=== PATIENT | male | born 1970 | race Caucasian/White ===

== ENCOUNTER → 2017-11-02 | Outpatient (REF) | payer BC ==
[2017-11-02 12:26] LABS: BASO % 0.6 % (0.0-1.0); EOS # 0.3 10^3/uL (0.0-0.50); EOS % 3.8 % (0.0-3.0); HEMATOCRIT 45.8 % (42.0-52.0); HEMOGLOBIN 15.2 g/dl (13.5-17.5); IMMATURE GRANULOCYTE % 0.3 % (0-3.0); LYMPH # 2.1 10^3/uL (1.5-4.5); LYMPH % 32.4 % (24.0-44.0); MEAN CORPUSCULAR HEMOGLOBIN 31.3 pg (27.0-33.0); MEAN CORPUSCULAR HGB CONC 33.2 g/dl (32.0-36.5); MEAN CORPUSCULAR VOLUME 94.4 fl (80.0-96.0); MONO # 0.8 10^3/uL (0.0-0.8); MONO % 11.5 % (0.0-5.0); NEUTROPHILS # 3.4 10^3/uL (1.8-7.7); NEUTROPHILS % 51.4 % (36.0-66.0); PLATELET COUNT, AUTOMATED 201 10^3/uL (150-450); RED BLOOD COUNT 4.85 10^6/uL (4.30-6.10); RED CELL DISTRIBUTION WIDTH 12.4 % (11.5-14.5); WHITE BLOOD COUNT 6.5 10^3/uL (4.0-10.0)
[2017-11-02 22:11] LABS: ALBUMIN 3.7 GM/DL (3.2-5.2); ALKALINE PHOSPHATASE 93 U/L (45-117); ALT/SGPT 145 U/L (12-78); ANION GAP 8 MEQ/L (8-16); AST/SGOT 118 U/L (7-37); BILIRUBIN,TOTAL 0.5 MG/DL (0.2-1.0); BLOOD UREA NITROGEN 9 MG/DL (7-18); CALCIUM LEVEL 8.9 MG/DL (8.5-10.1); CARBON DIOXIDE LEVEL 28 MEQ/L (21-32); CHLORIDE LEVEL 103 MEQ/L (98-107); CREATININE FOR GFR 0.81 MG/DL (0.70-1.30); GLOMERULAR FILTRATION RATE > 60.0 (>60); GLUCOSE, FASTING 100 MG/DL (70-100); POTASSIUM SERUM 4.3 MEQ/L (3.5-5.1); SODIUM LEVEL 139 MEQ/L (136-145); TOTAL PROTEIN 7.3 GM/DL (6.4-8.2); TRIGLYCERIDES LEVEL 121 MG/DL (<150)
[2017-11-02 23:16] LABS: ALBUMIN/GLOBULIN RATIO 1.03 (1.00-1.93); CHOLESTEROL LEVEL 240 MG/DL (<200); CHOLESTEROL RISK RATIO 4.444 (<5); HDL CHOLESTEROL 54 MG/DL (>40); LDL CHOLESTEROL 161.8 MG/DL (<100); NON-HDL-C 186 MG/DL
== END ==
LOC: M SFHCADAM 08:10
DX: E78.2 Mixed hyperlipidemia (principal)
CPT/HCPCS: 84443

== ENCOUNTER → 2017-11-11 | Outpatient (CLI) | payer BC | LOC: M RAD 06:15 | DX: K76.0 Fatty (change of) liver, not elsewhere classified (principal); R94.5 Abnormal results of liver function studies; E78.2 Mixed hyperlipidemia | CPT/HCPCS: 76705 ==

== ENCOUNTER → 2018-07-06 | Outpatient (REF) | payer BC ==
[2018-07-06 13:15] LABS: HEMOGLOBIN A1c 6.1 %
[2018-07-06 13:21] LABS: ALBUMIN 4.1 GM/DL (3.2-5.2); ALT/SGPT 87 U/L (12-78); BILIRUBIN,TOTAL 0.5 MG/DL (0.2-1.0); BLOOD UREA NITROGEN 12 MG/DL (7-18); CARBON DIOXIDE LEVEL 29 MEQ/L (21-32); CHLORIDE LEVEL 105 MEQ/L (98-107); CHOLESTEROL LEVEL 186 MG/DL (<200); CHOLESTEROL RISK RATIO 2.657 (<5); CREATININE FOR GFR 0.85 MG/DL (0.70-1.30); GLOMERULAR FILTRATION RATE > 60.0 (>60); GLUCOSE, FASTING 95 MG/DL (70-100); HDL CHOLESTEROL 70 MG/DL (>40); LDL CHOLESTEROL 74 MG/DL (<100); NON-HDL-C 116 MG/DL; POTASSIUM SERUM 4.7 MEQ/L (3.5-5.1); SODIUM LEVEL 141 MEQ/L (136-145); TOTAL PROTEIN 7.9 GM/DL (6.4-8.2); TRIGLYCERIDES LEVEL 208 MG/DL (<150)
[2018-07-06 13:35] LABS: MALB URINE SIEMENS 5.2 MG/L; MAU/CREAT RATIO 3.8 MCG/MG (0.0-30.0)
== END ==
LOC: M SFHCADAM 07:59
PROVIDERS: ATTEND Physician Assistant Medical
DX: E78.2 Mixed hyperlipidemia (principal); E66.01 Morbid (severe) obesity due to excess calories; R73.01 Impaired fasting glucose; F10.10 Alcohol abuse, uncomplicated; K21.9 Gastro-esophageal reflux disease without esophagitis; K76.0 Fatty (change of) liver, not elsewhere classified

== ENCOUNTER → 2019-01-10 | Outpatient (REF) | payer BC ==
[2019-01-10 12:40] LABS: HEMATOCRIT 46.1 % (42.0-52.0); HEMOGLOBIN 14.9 g/dl (13.5-17.5); MEAN CORPUSCULAR HEMOGLOBIN 30.9 pg (27.0-33.0); MEAN CORPUSCULAR HGB CONC 32.3 g/dl (32.0-36.5); MEAN CORPUSCULAR VOLUME 95.6 fl (80.0-96.0); PLATELET COUNT, AUTOMATED 264 10^3/uL (150-450); RED BLOOD COUNT 4.82 10^6/uL (4.30-6.10); WHITE BLOOD COUNT 8.3 10^3/uL (4.0-10.0)
[2019-01-10 12:53] LABS: ALBUMIN 3.8 GM/DL (3.2-5.2); ALT/SGPT 73 U/L (12-78); BILIRUBIN,TOTAL 0.5 MG/DL (0.2-1.0); BLOOD UREA NITROGEN 11 MG/DL (7-18); CALCIUM LEVEL 9.4 MG/DL (8.5-10.1); CARBON DIOXIDE LEVEL 29 MEQ/L (21-32); CHLORIDE LEVEL 105 MEQ/L (98-107); CHOLESTEROL LEVEL 181 MG/DL (<200); CHOLESTEROL RISK RATIO 2.207 (<5); CREATININE FOR GFR 0.79 MG/DL (0.70-1.30); GLOMERULAR FILTRATION RATE > 60.0 (>60); GLUCOSE, FASTING 104 MG/DL (70-100); HDL CHOLESTEROL 82 MG/DL (>40); LDL CHOLESTEROL 80 MG/DL (<100); NON-HDL-C 99 MG/DL; POTASSIUM SERUM 4.6 MEQ/L (3.5-5.1); SODIUM LEVEL 141 MEQ/L (136-145); THYROID STIMULATING HORMONE 0.706 uIU/ML (0.358-3.740); TOTAL PROTEIN 7.6 GM/DL (6.4-8.2); TRIGLYCERIDES LEVEL 96 MG/DL (<150)
[2019-01-10 13:28] LABS: HEMOGLOBIN A1c 6.2 %
== END ==
LOC: M SFHCADAM 09:03
PROVIDERS: ATTEND Physician Assistant Medical
DX: E78.2 Mixed hyperlipidemia (principal); E66.01 Morbid (severe) obesity due to excess calories; R73.01 Impaired fasting glucose

== ENCOUNTER → 2019-01-13 | Outpatient (CLI) | payer BC ==
--- NOTE | 2019-01-13 15:11 | REP ---
Five views lumbar spine: 01/13/2019. Indication: Low back pain. Comparison: 06/09/2005. Findings: There is no acute fracture, subluxation or dislocation. Disc space narrowing and spondylitic changes are present throughout most pronounced at the L3/L4 and L5/S1. There is minimal lumbar levoscoliosis centered at L3. There is no significant soft tissue abnormality detected. No lytic or blastic lesions are present. Impression: No acute osseous injury of the lumbar spine. Electronically Signed by Ezequiel Harvey DO 01/13/2019 03:02 P
== END ==
LOC: M ADAMS 14:38
PROVIDERS: ATTEND Physician Assistant Medical
DX: M54.5 Low back pain (principal)

== ENCOUNTER → 2019-07-08 | Outpatient (REF) | payer BC ==
[2019-07-08 13:23] LABS: ALBUMIN 3.5 GM/DL (3.2-5.2); ALT/SGPT 87 U/L (12-78); BILIRUBIN,TOTAL 0.7 MG/DL (0.2-1.0); BLOOD UREA NITROGEN 11 MG/DL (7-18); CALCIUM LEVEL 8.5 MG/DL (8.5-10.1); CARBON DIOXIDE LEVEL 30 MEQ/L (21-32); CHLORIDE LEVEL 104 MEQ/L (98-107); CHOLESTEROL LEVEL 247 MG/DL (<200); CHOLESTEROL RISK RATIO 4.049 (<5); FREE T4 1.02 NG/DL (0.76-1.46); GLOMERULAR FILTRATION RATE > 60.0 (>60); GLUCOSE, FASTING 89 MG/DL (70-100); HDL CHOLESTEROL 61 MG/DL (>40); NON-HDL-C 186 MG/DL; POTASSIUM SERUM 4.5 MEQ/L (3.5-5.1); SODIUM LEVEL 140 MEQ/L (136-145); THYROID STIMULATING HORMONE 0.859 uIU/ML (0.358-3.740); TOTAL PROTEIN 7.2 GM/DL (6.4-8.2); TRIGLYCERIDES LEVEL 461 MG/DL (<150)
[2019-07-08 13:44] LABS: CREATININE, URINE 88.6 MG/DL; MALB URINE SIEMENS 5.1 MG/L; MAU/CREAT RATIO 5.7 MCG/MG (0.0-30.0)
[2019-07-08 13:57] LABS: HEMOGLOBIN A1c 6.1 %
== END ==
LOC: M SFHCADAM 09:08
PROVIDERS: ATTEND Physician Assistant Medical
DX: E78.2 Mixed hyperlipidemia (principal); E66.01 Morbid (severe) obesity due to excess calories; R73.03 Prediabetes

== ENCOUNTER → 2019-07-26 | Outpatient (REF) | payer BC ==
[2019-07-26 14:37] LABS: ALBUMIN 3.7 GM/DL (3.2-5.2); BILIRUBIN,DIRECT 0.4 MG/DL (0.0-0.2); BILIRUBIN,TOTAL 0.9 MG/DL (0.2-1.0); TOTAL PROTEIN 7.3 GM/DL (6.4-8.2)
== END ==
LOC: M SFHCADAM 08:46
PROVIDERS: ATTEND Physician Assistant Medical
DX: K76.0 Fatty (change of) liver, not elsewhere classified (principal)

== ENCOUNTER → 2019-07-27 | Outpatient (REF) | payer BC ==
[2019-07-27 18:22] LABS: HEPATITIS A ANTIBODY IGM NEGATIVE (NEGATIVE); HEPATITIS B CORE ANTIBODY IGM NEGATIVE (NEGATIVE); HEPATITIS B SURFACE ANTIGEN NEGATIVE (NEGATIVE); HEPATITIS C VIRUS ABY INDEX 0.3 INDEX (<0.8)
== END ==
LOC: M SFHCADAM 08:20
PROVIDERS: ATTEND Physician Assistant Medical
DX: R74.8 Abnormal levels of other serum enzymes (principal)

== ENCOUNTER → 2019-08-03 | Outpatient (CLI) | payer BC ==
--- NOTE | 2019-08-03 07:42 | REP ---
Clinical: Elevated liver function tests. Technique: Real time west scale ultrasound examination using curved array transducer. Findings: Liver is upper limits of normal in size and demonstrates diffusely increased echogenicity with poor through transmission suggesting fatty infiltration. No focal hepatic lesion identified. The pancreas is incompletely evaluated due to interposed bowel gas but visualized portions appear normal. The gallbladder is normal and without gallstones, wall thickening, or pericholecystic fluid. No biliary ductal dilatation is appreciated and the common bile duct measures 2.5 mm diameter. The right kidney is normal in reniform shape without hydronephrosis and measures 10.9 x 5.6 x 5.6 cm. No ascites in the visualized right upper quadrant. Impression: Hepatosteatosis.
== END ==
LOC: M WHC 06:55
PROVIDERS: ATTEND Physician Assistant Medical
DX: R74.8 Abnormal levels of other serum enzymes (principal)

== ENCOUNTER → 2020-02-14 | Outpatient (REF) | payer BC | LOC: M SFHCADAM 08:02 | PROVIDERS: ATTEND Physician Assistant Medical | DX: K76.0 Fatty (change of) liver, not elsewhere classified (principal); E78.1 Pure hyperglyceridemia; Z53.9 Procedure and treatment not carried out, unspecified reason ==

== ENCOUNTER → 2020-02-14 | Outpatient (CLI) | payer BC ==
[2020-02-14 13:28] LABS: ALBUMIN 3.1 GM/DL (3.2-5.2); ALT/SGPT 50 U/L (12-78); BILIRUBIN,TOTAL 1.6 MG/DL (0.2-1.0); FERRITIN 336 NG/ML (26-388); IRON (FE) 63 UG/DL (65-175); PERCENT SATURATION 29.3 % (19.7-50.0); TOTAL IRON BINDING CAPACITY 215 UG/DL (250-450); TOTAL PROTEIN 7.1 GM/DL (6.4-8.2)
[2020-02-14 13:33] LABS: HEPATITIS B SURFACE ANTIGEN NEGATIVE (NEGATIVE)
[2020-02-14 14:02] LABS: HEPATITIS C VIRUS ABY INDEX 0.2 INDEX (<0.8)
[2020-02-16 23:08] LABS: ANTI-MITOCHONDRIAL ANTIBODY <20.0 Units (0.0-20.0); ANTI-SMOOTH MUSCLE ANTIBODY 5 Units (0-19); ANTINUCLEAR ANTIBODIES DIRECT Negative (Negative); CERULOPLASMIN 29.9 mg/dL (16.0-31.0); HEPATITIS A IgG TOTAL Negative (Negative); HEPATITIS B CORE ANTIBODY IGG Negative (Negative); IGASUB3 58.8 mg/dL (13.4-97.9); IgA SERUM (part of Subclasses) 406 mg/dL (90-386); LIVER-KIDNEY MICROSOMAL ABY <20.1 Units (0.0-20.0); TISSUE TRANSGLUTAMINASE IgA <2 U/mL (0-3)
== END ==
LOC: M LABDRWAD 08:14
PROVIDERS: ATTEND Internal Medicine Gastroenterology
DX: R94.5 Abnormal results of liver function studies (principal)

== ENCOUNTER → 2020-03-02 | Outpatient (REF) | payer BC ==
[2020-03-02 13:20] LABS: BASO # 0.1 10^3/uL (0.0-0.2); BASO % 1.3 % (0.0-1.0); EOS # 0.7 10^3/uL (0.0-0.5); EOS % 7.2 % (0.0-3.0); HEMOGLOBIN 15.5 g/dl (13.5-17.5); LYMPH # 1.6 10^3/uL (1.5-5.0); LYMPH % 15.8 % (24.0-44.0); MEAN CORPUSCULAR HGB CONC 32.3 g/dl (32.0-36.5); MEAN CORPUSCULAR VOLUME 102.3 fl (80.0-96.0); MONO # 0.9 10^3/uL (0.0-0.8); MONO % 8.5 % (0.0-5.0); NEUTROPHILS # 6.9 10^3/uL (1.5-8.5); NEUTROPHILS % 66.9 % (36.0-66.0); PLATELET COUNT, AUTOMATED 320 10^3/uL (150-450); RED BLOOD COUNT 4.69 10^6/uL (4.30-6.10); WHITE BLOOD COUNT 10.3 10^3/uL (4.0-10.0)
[2020-03-02 13:31] LABS: INR 1.31; PROTHROMBIN TIME 16.6 SECONDS (12.5-14.3)
[2020-03-02 13:32] LABS: PARTIAL THROMBOPLASTIN TIME 38.4 SECONDS (24.2-38.5)
[2020-03-02 14:04] LABS: BLOOD UREA NITROGEN 6 MG/DL (7-18); CALCIUM LEVEL 8.8 MG/DL (8.5-10.1); CARBON DIOXIDE LEVEL 27 MEQ/L (21-32); CHLORIDE LEVEL 103 MEQ/L (98-107); CREATININE FOR GFR 0.73 MG/DL (0.70-1.30); GLOMERULAR FILTRATION RATE > 60.0 (>60); GLUCOSE, FASTING 87 MG/DL (70-100); POTASSIUM SERUM 4.8 MEQ/L (3.5-5.1); SODIUM LEVEL 136 MEQ/L (136-145)
== END ==
LOC: M LABDRWAD 12:31
PROVIDERS: ATTEND Internal Medicine Gastroenterology
DX: K70.31 Alcoholic cirrhosis of liver with ascites (principal)

== ENCOUNTER → 2020-03-16 | Outpatient (CLI) | payer BC ==
[~2020-03-16] MED LIST: FURO40TA2 PO; NAPR220C14 PO; OMEP10CASR PO; SODIUM BICARBONATE 8.4% INJ 50MEQ 50 ML VIAL As Ordered ONE
[2020-03-16 08:30] VITALS: BP 137/78
--- NOTE | 2020-03-16 15:09 | REP ---
INDICATION: ALCOHOLIC CIRRHOSIS OF LIVER W / ASCITES. COMPARISON: None. TECHNIQUE: Four quadrant sonography. Ascites survey. FINDINGS: Scanning through all 4 quadrants of the abdomen is performed. There is no evidence of abdominal peritoneal ascites. IMPRESSION: Negative ascites survey. No ascites seen. <Electronically signed by Xavi Terry > 03/16/20 [id number]
== END ==
LOC: M RAD 08:24
PROVIDERS: ATTEND Internal Medicine Gastroenterology
DX: K70.30 Alcoholic cirrhosis of liver without ascites (principal)

== ENCOUNTER → 2020-03-19 | Outpatient (REF) | payer BC ==
[~2020-03-19] MED LIST changes: -SODIUM BICARBONATE 8.4% INJ 50MEQ 50 ML VIAL As Ordered ONE
[2020-03-19 14:24] LABS: BLOOD UREA NITROGEN 10 MG/DL (7-18); CALCIUM LEVEL 9.7 MG/DL (8.5-10.1); CARBON DIOXIDE LEVEL 32 MEQ/L (21-32); CHLORIDE LEVEL 100 MEQ/L (98-107); CREATININE FOR GFR 0.83 MG/DL (0.70-1.30); GLOMERULAR FILTRATION RATE > 60.0 (>60); GLUCOSE, FASTING 92 MG/DL (70-100); POTASSIUM SERUM 3.9 MEQ/L (3.5-5.1); SODIUM LEVEL 139 MEQ/L (136-145)
[2020-03-19 15:39] LABS: CREATININE,RANDOM URINE 36.1 MG/DL
== END ==
LOC: M LABDRWAD 12:33
PROVIDERS: ATTEND Internal Medicine Gastroenterology
DX: R94.5 Abnormal results of liver function studies (principal)

== ENCOUNTER → 2020-03-22 | Outpatient (CLI) | payer BC | LOC: M LABSMTC 13:36 | PROVIDERS: ATTEND Anesthesiology | DX: Z01.812 Encounter for preprocedural laboratory examination (principal); Z20.822 Contact with and (suspected) exposure to COVID-19 ==

== ENCOUNTER 2020-03-27 11:03 | Day surgery (SDC) | payer BC ==
[~2020-03-27] VITALS: Ht 177.8 cm; Wt 99.8 kg
[~2020-03-27 11:03] MED LIST changes: +LIDOCAINE 2% 100MG/5ML SDV (FOR ANES.) As Ordered ONE; +NS 1,000 ML IV ONE; +fentaNYL 100 MCG/2 ML INJECTION (J3010) As Ordered ONE; +propofoL 200 MG/20 ML VIAL As Ordered ONE
--- OUTSIDE RECORDS SUMMARY | 2020-03-27 11:08 | CCD | Continuity of Care Document ---
Author Author Yung ARELLANO M.D. 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 AUTM [phone] Problems Description No Information Available Social History Type Date Description Comments Sex Unknown ETOH Use Denies alcohol use Tobacco Use Start: Unknown Non Smoker Allergies, Adverse Reactions, Alerts Description No Known Drug Allergies Medications Active Medications SIG Qnty Indications Ordering Provide r Date Omeprazole Tablet use as directed Unknown Immunizations Description No Information Available Vital Signs Date Vital Result Comment 03/01/2020 2:16pm BP Systolic 126 mmHg BP Diastolic 70 mmHg Height 70 inches 5'10" Weight 244.00 lb BMI (Body Mass Index) 35.0 kg/m2 [place] Body Weight 166 lb Weight 110.678 kg BSA (Body Surface Area) 2.27 m2 09/21/2019 1:13pm BP Systolic 130 mmHg BP Diastolic 76 mmHg Height 70 inches 5'10" Weight 236.00 lb BMI (Body Mass Index) 33.9 kg/m2 [place] Body Weight 166 lb Weight 107.050 kg BSA (Body Surface Area) 2.24 m2 Results Test Acquired Date Facility Test Result H/L Range Note Liver Profile 02/14/2020 [facility] [address] [place], [place] [id number] [phone] Ast/Sgot 144 U/L High 7-37 Alt/SGPT 50 U/L Normal 12-78 Alkaline Phosphatase 210 U/L High 45-117 Bilirubin,Total 1.6 mg/dL High 0.2-1.0 Bilirubin,Direct 1.0 mg/dL High 0.0-0.2 Total Protein 7.1 GM/DL Normal 6.4-8.2 Albumin 3.1 GM/DL Low 3.2-5.2 Albumin/Globulin Ratio 0.8 Normal Antinuclear Antibodies 02/14/2020 [facility] [address] [place] [address] [phone] Antinuclear Antibodies Direct Negative Normal Ne gative Laboratory test finding 02/14/2020 [facility] [address] [place] [phone] Liver-Kidney Microsomal Elizabeth <20.1 units Normal 0.0 -20.0 1 Anti-Smooth Muscle Antibody 5 units Normal 0-19 2 Anti-Mitochondrial Antibody <20.0 units Normal 0.0-20.0 3 Hepatitis A IgG Total Negative Normal Negative 4 Hepatitis B Core Antibody Igg Negative Normal Negative Hepatitis B Surface Antigen NEGATIVE Normal Negative Hepatitis B Surf AB Quant <3.1 mIU/mL Low Immunity>9.9 5 Hepatitis C Virus Elizabeth Index 0.2 INDEX Normal <0.8 6 Total Iron Binding Capacit 02/14/2020 [facility] [address] [place] [address] [phone] Iron (Fe) 63 g/dL Low 65-175 Total Iron Binding Capacity 215 g/dL Low 250-450 Percent Saturation 29.3 % Normal 19.7-50.0 Laboratory test finding 02/14/2020 [facility] [address] [place] [address] [phone] Ferritin 336 NG/ML Normal 26-388 Ceruloplasmin 29.9 mg/dL Normal 16.0-31.0 Lane Fibrosure 02/14/2020 [facility] [address] [place] [address] [phone] Fibrosis Score 0.82 High 0.00-0.21 Fibrosis Stage (SEE NOTE) Normal . 7 Steatosis Score 0.77 High 0.00-0.30 Steatosis Grade (SEE NOTE) Normal . [address] Score [address] Grade (SEE NOTE) Normal . 9 Height 70 in Normal . Weight 107 LBS Normal . Alpha 2-Macroglobulins,QN 188 mg/dL Normal 110-276 Haptoglobin 153 mg/dL Normal 23-355 Apolipoprotein A-1 92 mg/dL Low 101-178 Bilirubin, Total 1.3 mg/dL High 0.0-1.2 GGT 1318 IU/L High 0-65 10 Alt (SGPT) P5P 48 IU/L Normal 0-55 Ast (Sgot) P5P 151 IU/L High 0-40 Cholesterol Total 268 mg/dL High 100-199 Glucose, Serum 100 mg/dL High 65-99 Triglycerides 187 mg/dL High 0-149 Interpretations (SEE NOTE) Normal . 11 Fibrosis Scoring (SEE NOTE) Normal . 12 Steatosis Grading (SEE NOTE) Normal . 13 Lane Scoring (SEE NOTE) Normal . 14 Limitations (SEE NOTE) Normal . 15 Comment (SEE NOTE) Normal . 16 Laboratory test finding 02/14/2020 [facility] [address] [place] [address] [phone] Tissue Transglutaminase IgA <2 U/mL Normal 0-3 17 Iga Subclasses 02/14/2020 [facility] [address] [place] [address] [phone] IgA Serum (part of Subclasses) 406 mg/dL High 9 0-386 Igasub2 302.0 mg/dL High 73.2-301.2 Igasub3 58.8 mg/dL Normal 13.4-97.9 1 Negative 0.0 - 20.0 Equivocal 20.1 - 24.9 Positive >24.9 . LKM type 1 antibodies are detected in patients with autoimmune hepatitis type 2 and in up to 8% of patients with chronic HCV infection. 2 Negative 0 - 19 Weak positive 20 - 30 Moderate to strong positive >30 . Actin Antibodies are found in 52-85% of patients with autoimmune hepatitis or chronic active hepatitis and in 22% of patients with primary biliary cirrhosis. 3 Negative 0.0 - 20.0 Equivocal 20.1 - 24.9 Positive >24.9 . Mitochondrial (M2) Antibodies are found in 90-96% of patients with primary biliary cirrhosis. 4 Performed at: - [address] [id number] Customer Care Team Coach: Amara Zamudio MD, Phone: [phone] Performed at: [facility] [address] [id number] Customer Care Team Coach: Dory Anderson MD, Phone: [phone] Status of Immunity Anti-HBs Level - Inconsistent with Immunity 0.0 - 9.9 Consistent with Immunity >9.9 6 Negative Not infected with HCV, unless recent infection is suspected or other evidence exists to indicate HCV infection. 7 F4 - Cirrhosis 8 S3 - Marked or Severe Steato sis 9 N1 - Borderline or probable LANE 10 Results confirmed on dilution. 11 . Quantitative results of 10 biochemicals in combination with age, gender, height, and weight, are analyzed using a computational algorithm to provide a quantitative surrogate marker (0.0-1.0) of liver fibrosis (Metavir F0-F4), hepatic steatosis (0.0-1.0, S0-S3), and Non-Alcoholic Steato- Hepatitis (LANE) (0.0-0.75, N0-N2). The absence of steatosis (S<0.38) precludes the diagnosis of LANE . . Fibrosis marker: In a study of 171 Non-Alcoholic Fatty Liver Disease (NAFLD) patients where 23% had significant NAFLD fibrosis (Metavir F2-F4) and 11% had cirrhosis by liver biopsy, a fibrosis result of >0.3 yielded a sensitivity of 83% and a specificity of 78% for the detection of significant fibrosis(1). . Steatosis Marker: In a population of 744 patients (583 HCV, 18 HBV, 69 NAFLD, and 74 alcoholic disea se patients), where 36% had significant steatosis (>5%) on a liver biopsy, a steatosis score >0.5 had a sensitivity of 71% and a specificity of 72% for identification of significant steatosis(2). . LANE marker: In a population of 257 NAFLD patients, where 62% had at least some LANE by liver biop sy, a prediction of LANE had a sensitivity of 88% for identifying LANE and a specificity of 50%(3). . 12 . <0.21 = Stage F0 - No fibrosis 0.21 - 0.27 = Stage F0 - F1 0.27 - 0.31 = Stage F1 - Portal fibrosis 0.31 - 0.48 = Stage F1 - F2 0.48 - 0.58 = Stage F2 - Bridging fibros is with few septa 0.58 - 0.72 = Stage F3 - Bridging fibros is with many septa 0.72 - 0.74 = Stage F3 - F4 >0.74 = Stage F4 - Cirrhosis 13 . < 0.30 = S0 - No Steatosis 0.30 to 0.38 = S0 - S1 0.38 to 0.48 = S1 - Minimal Steatosis 0.48 to 0.57 = S1 - S2 0.57 to 0.67 = S2 - Moderate Steatosis 0.67 to 0.69 = S2 - S3 > 0.69 = S3 - Marked or Severe Steatosis 14 . 0.25 = N0 - Not LANE 0.50 = N1 - Borderline or probable LANE 0.75 = N2 - LANE 15 . LANE FibroSure is recommended for patients with suspected non-alcoholic fatty liver disease. It is not recommended for patients with other liver diseases. It is also not recommended in patients with Gilbert Disease, acute hemolysis, acute viral hepatitis, drug induced hepatitis, genetic liver disease, autoimmune hepatitis and/or extra- hepatic cholestasis. Any of these clinical situations may lead to inaccurate quantitative predictions of fibrosis. 16 . This test was developed and its performance characteristics determined by [employer]. It has not been cleared or approved by the Food and Drug Administration. The FDA has determined that such clearance or approval is not necessary. . For questions regarding this report please contact customer service at . . References: . 1. Soraya Hudson et al. Diagnostic Value of Biochemical Markers (FibroTest) for the prediction of Liver Fibrosis in patients with Non-Alcoholic Fatty Liver Disease. BMC Gastroenterology 2006; 6:6. 2. Bel Stanley et al. The Diagnostic Nicki ue of Biomarkers (Steato Test) for the Prediction of Live r Steatosis. Comparative Hepatol. 2005; 4:10. 3. Marybeth Stanley, Kinza Lira, et a l. Diagnostic value of biochemical markers (LANE TEST) for the prediction of non alcohol steato hepatitis in patients with non- alcoholic fatty liver disease. BMC Gastroenterology 2006; 6:34 doi:10.1186/7564-186X-6-34. 17 Negative 0 - 3 Weak Positive 4 - 10 Positive >10 . Tissue Transglutaminase (tTG) has been identified as the endomysial antigen. Studies have demonstr- ated that endomysial IgA antibodies have over 99% specificity for gluten sensitive enteropathy. Procedures Description No Information Available Medical Devices Description No Information Available Encounters Type Date Location Provider Dx Diagnosis Office Visit 09/21/2019 9:30a [facility] Sanket Arellano M.D. R94.5 Abnormal results of liver fu nction studies Assessments Date Code Description Provider 03/01/2020 K70.31 Alcoholic cirrhosis of liver wit h ascites Joseluis Arellano M.D. 03/01/2020 R94.5 Abnormal results of liver functi on studies Joseluis Arellano M.D. 09/21/2019 R94.5 Abnormal results of liver functi on studies Joseluis Arellano M.D. Plan of Treatment 03/01/2020 - Joseluis Arellano M.D.* K70.31 Alcoholic cirrhosis of liver with ascites * R94.5 Abnormal results of liver function studies * * New Labs:* CBC With Differential, Ordered: 03/01/20 * PT & Aptt, Ordered: 03/01/20 * Basic Metabolic Profile, Ordered: 03/01/20 * Recommendations:* -- Obtain labs including CBC and BMP -- Start on diuretics and repeat labs in 2-3 weeks on diuretics. -- Will obtain US abdomen and diagnostic paracentesis. -- Schedule for EGD -- Follow up in clinic in 4-6 weeks. Functional Status Description No Information Available Mental Status Description No Information Available Referrals Description No Information Available
--- OUTSIDE RECORDS SUMMARY | 2020-03-27 11:09 | CCD ---
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 Role Phone Flakita ARELLANO MD Unavailable Unavailable Flakita ARELLANO MD Unavailable Unavailable Flakita ARELLANO MD Unavailable Unavailable Flakita ARELLANO MD Unavailable Unavailable Flakita ARELLANO MD Unavailable Unavailable Flakita ARELLANO MD Unavailable Unavailable Flakita ARELLANO MD Unavailable Unavailable Flakita ARELLANO MD Unavailable Unavailable Flakita ARELLANO MD Unavailable Unavailable Flakita ARELLANO MD Unavailable Unavailable Flakita ARELLANO MD Unavailable Unavailable Flakita ARELLANO MD Unavailable Unavailable Flakita ARELLANO MD Unavailable Unavailable Flakita ARELLANO MD Unavailable Unavailable Flakita ARELLANO MD Unavailable Unavailable Flakita ARELLANO MD Unavailable Unavailable Flakita ARELLANO MD Unavailable Unavailable Flakita ARELLANO MD Unavailable Unavailable Flakita ARELLANO MD Unavailable Unavailable Flakita ARELLANO MD Unavailable Unavailable Flakita ARELLANO MD Unavailable Unavailable Flakita ARELLANO MD Unavailable Unavailable Flakita ARELLANO MD Unavailable Unavailable Flakita ARELLANO MD Unavailable Unavailable Flakita ARELLANO MD Unavailable Unavailable Flakita ARELLANO MD Unavailable Unavailable Flakita ARELLANO MD Unavailable Unavailable CHANDRALAFlakita MD Unavailable Unavailable CHANDRALAFlakita MD Unavailable Unavailable CHANDRALAFlakita MD Unavailable Unavailable KELLYRALAFlakita MD Unavailable Unavailable KELLYRALAFlakita MD Unavailable Unavailable Flakita ARELLANO MD Unavailable Unavailable Re-disclosure Warning The records that you are about to access may contain information from federally-assisted alcohol or drug abuse programs. If such information is present, then the following federally mandated warning applies: This information has been disclosed to you from records protected by federal confidentiality rules (42 CFR part 2). The federal rules prohibit you from making any further disclosure of this information unless further disclosure is expressly permitted by the written consent of the person to whom it pertains or as otherwise permitted by 42 CFR part 2. A general authorization for the release of medical or other information is NOT sufficient for this purpose. The Federal rules restrict any use of the information to criminally investigate or prosecute any alcohol or drug abuse patient.The records that you are about to access may contain highly sensitive health information, the redisclosure of which is protected by Article 27-F of the [facility] Public Health law. If you continue you may have access to information: Regarding HIV / AIDS; Provided by facilities licensed or operated by the [facility] Office of Mental Health; or Provided by the [facility] Office for People With Developmental Disabilities. If such information is present, then the following [facility] mandated warning applies: This information has been disclosed to you from confidential records which are protected by state law. State law prohibits you from making any further disclosure of this information without the specific written consent of the person to whom it pertains, or as otherwise permitted by law. Any unauthorized further disclosure in violation of state law may result in a fine or group home sentence or both. A general authorization for the release of medical or other information is NOT sufficient authorization for further disc losure. Encounters Encounter Providers Location Date Indications Data Source(s ) Unknown [address] [facility], [facility] [address] 12/05/2019 12:00:00 AM EDT eCW1 ([facility]) Outpatient Attender: EH Sainz/Benjy/Gabe santizo/Martín 09/21/2019 09:30:00 AM EDT [facility] ([facility]) Outpatient 08/19/2019 05:23:00 AM EDT [facility] [address] [facility] [address] 07/26/2019 12:00:00 AM EDT eCW1 ([facility]) [facility] [address] [facility] [address] 07/15/2019 12:00:00 AM EDT eCW1 ([facility]) [facility] [address] [facility] [address] 07/08/2019 12:00:00 AM EDT eCW1 ([facility]) [facility] [address] [facility] [address] 05/23/2019 12:00:00 AM EDT eCW1 ([facility]) [facility] [address] [facility] [address] 05/21/2019 12:00:00 AM EDT eCW1 ([facility]) [facility] [address] [facility] [address] 03/09/2019 12:00:00 AM EST eCW1 ([facility]) Outpatient 01/26/2019 09:17:00 PM EST [facility] Medications Medication Brand Name Start Date Product Form Dose Route Admi nistrative Instructions Pharmacy Instructions Status Indications Reaction Description Data Source(s) 40 mg 03/05/2020 12:00:00 AM EST tablet 60 TAKE 1 TABLET BY MOUTH IN THE MORNING FOR 7 DAYS (AFTER THAT INCREASE TO TWO TIMES A DAY DEPENDING ON ULTRASOUND AND LABS) TAKE 1 TABLET BY MOUTH IN THE MORNING FO R 7 DAYS (AFTER THAT INCREASE TO TWO TIMES A DAY DEPENDING ON ULTRASOUND AND LABS) SOLD: 03/05/2020 [facility] Cephalexin 500 MG Oral Capsule CEPHALEXIN 02/20/2020 12:00:00 AM EST capsule 20 TAKE 1 CAPSULE BY MOUTH EVERY 12 HOURS TAKE 1 CAPSULE BY KALEB TH EVERY 12 HOURS SOLD: 02/20/2020 [facility] 40 mg 05/23/2019 12:00:00 AM EDT tablet 10 TAKE 1 TABLET BY MOUTH IN THE EVENING TAKE 1 TABLET BY MOUTH IN THE EVENING SOLD: 05/24/2019 [employer] [facility] Simvastatin 40 MG Oral Tablet SIMVASTATIN 01/29/2019 12:00:00 AM EST t ablet 7 TAKE 1 TABLET BY MOUTH IN THE EVENING TAKE 1 TABLET BY MOUTH IN THE EVENING SOLD: 01/29/2019 [facility] Insurance Providers Payer name Policy type / Coverage type Policy ID Covered democrat ID Covered democrat's relationship to william Policy William Plan Information [employer] [id number] [place] [id number] [place] 306/806 [id number] [place] [id number] [place] 306/806 [id number] [place] [id number] [facility] BCBS B [id number] P VYS [id number] ANSI-Commercial [id number] ANSI-Commercial [id number] ANSI-Commercial [id number] ANSI-Commercial [id number] ANSI-Commercial [id number] [place] 302/307 [id number] [place]2 [id number] ANSI-Commercial [id number] ANSI-Commercial [id number] ANSI-Commercial [id number] [place] PPO 302/307 [id number] WI2 [id number] ANSI-Commercial [id number] [facility] [id number] SP [id number] [facility] [id number] SP [id number] SELF PAY 5 UNAVAILABLE 1 UNAVAILA BLE [id number] Problems, Conditions, and Diagnoses Code Display Name Description Problem Type Effective Dates Data Source(s) E78.1 [id number] Hypertriglyceridemia Problem 07/15/2019 12:0 0:00 AM EDT eCW1 ([facility]) E78.1 [id number] Hypertriglyceridemia Problem 07/15/2019 12:0 0:00 AM EDT eCW1 ([facility]) Results ID Date Data Source [id number] 03/22/2020 02:00:00 PM EST [facility] Name Value Range Interpretation Code Description Data Mai rce(s) Supporting Document(s) SARS coronavirus [address] [facility] This lab was ordered by [facility] and reported by [facility]. ID Date Data Source [id number] 02/14/2020 08:22:00 AM EST [facility] ([facility], ) Name Value Range Interpretation Code Description Data Mai rce(s) Supporting Document(s) IgA Serum (part of Subclasses) 406 mg/dL 90-386 Above high kalyan l MEDENT ([facility], ) Igasub2 302.0 mg/dL 73.2-301.2 Above high normal [facility] ([facility], ) Igasub3 58.8 mg/dL 13.4-97.9 Normal (applies to non-numeric resul ts) [facility]) ID Date Data Source [id number] 02/14/2020 08:22:00 AM [facility]) Name Value Range Interpretation Code Description Data Mai rce(s) Supporting Document(s) Tissue transglutaminase IgA Ab [Units/volume] in Serum Labor atory test result 0-3 Normal (applies to non-numeric results) [facility]) Negative 0 - 3 Weak Positive 4 - 10 Positive >10 . Tissue Transglutaminase (tTG) has been identified as the endomysial antigen. Studies have demonstr- ated that endomysial IgA antibodies have over 99% specificity for gluten sensitive enteropathy. ID Date Data Source [id number] 02/14/2020 08:22:00 AM [facility]) Name Value Range Interpretation Code Description Data Mai rce(s) Supporting Document(s) Fibrosis Score 0.82 0.00-0.21 Above high normal [facility] ([facility]) Fibrosis Stage Laboratory test result Normal (applies to non-numeric results) [facility]) F4 - Cirrhosis Steatosis Score 0.77 0.00-0.30 Above high normal [facility]) Steatosis Grade Laboratory test result Normal (a pplies to non-numeric results) [facility]) S3 - Marked or Severe Steatosis Lane Grade Laboratory test result Normal (applies to non-n umeric results) [facility]) N1 - Borderline or probable LANE Height 70 in Normal (applies to non-numeric resul ts) [facility]) Lane Score 0.50 Above high normal [facility]) Weight 107 LBS Normal (applies to non-numeric resul ts) [facility]) Alpha 2-Macroglobulins,QN 188 mg/dL 110-276 Normal (applies to non-numeric results) [facility]) Haptoglobin 153 mg/dL 23-355 Normal (applies to non-numeric resu lts) [facility]) GGT 1318 IU/L 0-65 Above high normal [facility] ([facility]) Results confirmed on dilution. Bilirubin, Total 1.3 mg/dL 0.0-1.2 Above high normal [facility] ([facility]) Apolipoprotein A-1 92 mg/dL 101-178 Below low normal [facility] ([facility]) Alt (SGPT) P5P 48 IU/L 0-55 Normal (applies to non-numeric r esults) [facility] ([facility]) Ast (Sgot) P5P 151 IU/L 0-40 Above high normal [facility] ([facility]) Cholesterol Total 268 mg/dL 100-199 Above high normal [facility]) Interpretations Laboratory test result Normal (a pplies to non-numeric results) [facility] ([facility]) <content>.</content>
<content>Quanti tative results of 10 biochemicals in combination with</content>
<content>age, gender, height, and weight, are analyzed using a</content>
<content>computational algorithm to provide a quantitative surrogate</content>
<content>marker (0.0-1.0) of liver fibrosis (Metavir F0-F4), hepatic</content>
<content>steatosis (0.0-1.0, S0-S3), and Non-Alcoholic Steato-</content>
<content>Hepatitis (LANE) (0.0-0.75, N0- N2). The absence of steatosis</content>
<content>(S<0.38) precludes the diagnosis of LANE.</content>
<content>.</content>
<content>Fibrosis marker: In a study of 171 Non-Alcoholic Fatty</content>
<content>Liver Disease (NAFLD) patients where 23% had significant</content>
<content>NAFLD fibrosis (Metavir F2-F4) and 11% had cirrhosis by</content>
<content>liver biopsy, a fibrosis result of >0.3 yielded a</content>
<content>sensitivity of 83% and a specificity of 78% for the</content>
<content>detection of significant fibrosis(1).</content>
<content>.</content>
<content>Steatosis Marker: In a population of 744 patients (583 HCV,</content>
<content>18 HBV, 69 NAFLD, and 74 alcoholic disease patients), where</content>
<content>36% had significant steatosis (>5%) on a liver biopsy, a</content>
<content>steatosis score >0.5 had a sensitivity of 71% and a</content>
<content>specificity of 72% for identification of significant</content>
<content>steatosis(2).</content>
<content>.</kate nt>
<content>LANE marker: In a population of 257 NAFLD patients, where</content>
<content>62% had at least some LANE by liver biopsy, a prediction of</content>
<content>LANE had a sensitivity of 88% for identifying LANE and a</content>
<content>specificity of 50%(3).</content>
<content>.</content>
<content></content> Triglycerides 187 mg/dL 0-149 Above high normal MEDE NT ([facility], ) Glucose, Serum 100 mg/dL 65-99 Above high normal [facility] ([facility], ) Steatosis Grading Laboratory test result Normal (applies to non-numeric results) [facility] ([facility], ) <content>.</content>
<content>< 0.30 = S0 - No Steatosis</content>
<content>0.30 to 0.38 = S0 - S1</content>
<content>0.38 to 0.48 = S1 - Minimal Steatosis</content>
<content>0.48 to 0.57 = S1 - S2</content>
<content>0.57 to 0.67 = S2 - Moderate Steatosis</content>
<content>0.67 to 0.69 = S2 - S3</content>
<content>> 0.69 = S3 - Marked or Severe Steatosis</content>
<content></content> Fibrosis Scoring Laboratory test result Normal ( applies to non-numeric results) [facility] ([facility], ) <content>.</content>
<content><0.21 = Stage F0 - No fibrosis</content>
<content>0.21 - 0.27 = Stage F0 - F1</content>
<content>0.27 - 0.31 = Stage F1 - Portal fibrosis</content>
<content>0.31 - 0.48 = Stage F1 - F2</content>
<content>0.48 - 0.58 = Stage F2 - Bridging fibrosis with few septa</content>
<content>0.58 - 0.72 = Stage F3 - Bridging fibrosis with many septa</content>
<content>0.72 - 0.74 = Stage F3 - F4</content>
<content>>0.74 = Stage F4 - Cirrhosis</content>
<content></content> Lane Scoring Laboratory test result Normal (applies to non -numeric results) [facility] ([facility], ) . 0.25 = N0 - Not LANE 0.50 = N1 - Borderline or probable LANE 0.75 = N2 - LANE Limitations Laboratory test result Normal (applies to non- numeric results) [facility], ) . LANE FibroSure is recommended for patients with suspected non-alcoholic fatty liver disease. It is not recommended for patients with other liver diseases. It is also not recommended in patients with Gilbert Disease, acute hemolysis, acute viral hepatitis, drug induced hepatitis, genetic liver disease, autoimmune hepatitis and/or extra- hepatic cholestasis. Any of these clinical situations may lead to inaccurate quantitative predictions of fibrosis. Comment Laboratory test result Normal (applies to non-n umeric results) [facility] ([facility], ) . This test was developed and its performance characteristics determined by [employer]. It has not been cleared or approved by the Food and Drug Administration. The FDA has determined that such clearance or approval is not necessary. . For questions regarding this report please contact customer service at . . References: . 1. Soraya Vega al. Diagnostic Value of Biochemical Markers (FibroTest) for the prediction of Liver Fibrosis in patients with Non-Alcoholic Fatty Liver Disease. BMC Gastroenterology 2006; 6:6. 2. Marybeth Stanley. et al. The Diagnostic Nicki ue of Biomarkers (Steato Test) for the Prediction of Live r Steatosis. Comparative Hepatol. 2005; 4:10. 3. Marybeth Stanley, Soraya, Kinza Alexander, et a l. Diagnostic value of biochemical markers (LANE TEST) for the prediction of non alcohol steato hepatitis in patients with non- alcoholic fatty liver disease. BMC Gastroenterology 2006; 6:34 doi:10.1186/2636-626S-4-34. ID Date Data Source [id number] 02/14/2020 08:22:00 AM EST [facility] ([facility]) Name Value Range Interpretation Code Description Data Mai rce(s) Supporting Document(s) Ferritin [Mass/volume] in Serum or Plasma 336 ng/mL 26-388 Normal (applies to non-numeric results) [facility] ([facility]) Ceruloplasmin [Mass/volume] in Serum or Plasma 29.9 mg/dL 1 6.0-31.0 Normal (applies to non-numeric results) [facility] ([facility]) ID Date Data Source [id number] 02/14/2020 08:22:00 AM EST [facility] Name Value Range Interpretation Code Description Data Mai rce(s) Supporting Document(s) Iron (Fe) 63 ug/dL 65-175 Below low normal [facility] ( [facility]) Total Iron Binding Capacity 215 ug/dL 250-450 Below low normal [facility]) Percent Saturation 29.3 % 19.7-50.0 Normal (applies to non-numer ic results) [facility]) ID Date Data Source [id number] 02/14/2020 08:22:00 AM EST [facility] ([facility]) Name Value Range Interpretation Code Description Data Mai rce(s) Supporting Document(s) Liver-Kidney Microsomal [facility] Laboratory test result 0.0-20.0 Normal (applies to non-numeric results) [facility] ([facility]) Negative 0.0 - 20.0 Equivocal 20.1 - 24.9 Positive >24.9 . LKM type 1 antibodies are detected in patients with autoimmune hepatitis type 2 and in up to 8% of patients with chronic HCV infection. Actin IgG Ab [Units/volume] in Serum or Plasma 5 units 0 -19 Normal (applies to non-numeric results) [facility] ([facility]) Negative 0 - 19 Weak positive 20 - 30 Moderate to strong positive >30 . Actin Antibodies are found in 52-85% of patients with autoimmune hepatitis or chronic active hepatitis and in 22% of patients with primary biliary cirrhosis. Hepatitis A virus IgG Ab [Units/volume] in Serum Laboratory test result Normal (applies to non-numeric results) [facility] ([facility]) Performed at: [address] [id number] Senior Technical Analyst: Amara Zamudio MD, Phone: [phone] Performed at: [facility] [address] [id number] Senior Technical Analyst: Dory Anderson MD, Phone: [phone] Mitochondria Ab [Units/volume] in Serum Laboratory test result 0 .0-20.0 Normal (applies to non-numeric results) [facility] ([facility]) Negative 0.0 - 20.0 Equivocal 20.1 - 24.9 Positive >24.9 . Mitochondrial (M2) Antibodies are found in 90-96% of patients with primary biliary cirrhosis. Hepatitis B virus surface Ag [Presence] in Serum or Pl asma by Immunoassay Laboratory test result Normal (applies to non-numeric results) [facility] ([facility]) Hepatitis B virus core Ab [Presence] in Serum Laboratory test re sult Normal (applies to non-numeric results) [facility] ([facility]) Hepatitis B virus surface Ab [Units/volume] in Serum Laboratory test result Below low normal [facility] ([facility]) Status of Immunity A nti-HBs Level - Inconsistent with Immunity 0.0 - 9.9 Consistent with Immunity >9.9 Hepatitis C virus Ab [Units/volume] in Serum by Immunoassay 0.2 INDEX Normal (applies to non-numeric results) [facility] ([facility]) Negative Not infected with HCV, unless recent infection is suspected or other evidence exists to indicate HCV infection. ID Date Data Source [id number] 02/14/2020 08:22:00 AM EST [facility] ([facility]) Name Value Range Interpretation Code Description Data Mai rce(s) Supporting Document(s) Antinuclear Antibodies Direct Laboratory test result Normal (applies to non- numeric results) [facility] ([facility]) ID Date Data Source [id number] 02/14/2020 08:22:00 AM [facility] ([facility]) Name Value Range Interpretation Code Description Data Mai rce(s) Supporting Document(s) Ast/Sgot 144 U/L 7-37 Above high normal [facility] ([facility], ) Alt/SGPT 50 U/L 12-78 Normal (applies to non-numeric resul ts) [facility] ([facility]) Alkaline Phosphatase 210 U/L 45-117 Above high normal [facility] ([facility]) Bilirubin,Total 1.6 mg/dL 0.2-1.0 Above high normal [facility] ([facility]) Albumin 3.1 GM/DL 3.2-5.2 Below low normal [facility] ( [facility]) Total Protein 7.1 GM/DL 6.4-8.2 Normal (applies to non-numeric re sults) [facility] ([facility]) Bilirubin,Direct 1.0 mg/dL 0.0-0.2 Above high normal [facility] ([facility]) Albumin/Globulin Ratio 0.8 Normal (applies to non-n umeric results) [facility] Procedure Social History Code Duration Value Status Description Data Source(s ) Smoking 07/15/2019 12:00:00 AM EDT Never Smoker completed Never S moker eCW1 ([facility]) Smoking 07/15/2019 12:00:00 AM EDT Never Smoker completed Never S moker eCW1 ([facility]) Vital Signs ID Date Data Source UNK Name Value Range Interpretation Code Description Data Source(s) Body surface area Derived from formula 2.27 m2 2.27 m2 [facility] ([facility]) Body weight 110.678 kg 110.678 kg [facility] ([facility]) [place] body weight 166 [lb_av] 166 [lb_av] [facility] ([facility]) Body mass index (BMI) [Ratio] 35.0 kg/m2 35.0 k g/m2 [facility] ([facility]) Body weight 244.00 [lb_av] 244.00 [lb_av] [facility] ([facility]) Body height 70 [in_i] 70 [in_i] [facility] ([facility]) 5'10" Diastolic blood pressure 70 mm[Hg] 70 mm[Hg] [facility] ([facility]) Systolic blood pressure 126 mm[Hg] 126 mm[Hg] [facility] ([facility]) Body surface area Derived from formula 2.24 m2 2.24 m2 [facility] ([facility]) Body weight 107.050 kg 107.050 kg [facility] ([facility]) [place] body weight 166 [lb_av] 166 [lb_av] [facility] ([facility]) Body mass index (BMI) [Ratio] 33.9 kg/m2 33.9 k g/m2 [facility] ([facility]) Body weight 236.00 [lb_av] 236.00 [lb_av] [facility] ([facility]) Body height 70 [in_i] 70 [in_i] [facility] ([facility]) 5'10" Diastolic blood pressure 76 mm[Hg] 76 mm[Hg] [facility] ([facility]) Systolic blood pressure 130 mm[Hg] 130 mm[Hg] M [facility] ([facility]) Diastolic blood pressure 78 mm[Hg] 78 mm[Hg] eCW1 ([facility]) Systolic blood pressure 132 mm[Hg] 132 mm[Hg] e CW1 ([facility]) Body temperature 96.5 [degF] 96.5 [degF] eCW1 ( [facility]) Respiratory rate 18 /min 18 /min eCW1 ([facility]) Heart rate 107 /min 107 /min eCW1 ([facility]) Body mass index (BMI) [Ratio] 36.17 kg/m2 36.17 kg/m2 eCW1 ([facility]) Body height 67.5 [in_us] 67.5 [in_us] eCW1 ([facility]) Body weight Measured 234.4 [lb_av] 234.4 [lb_av ] eCW1 ([facility])
[2020-03-27 12:30] VITALS: BP 145/71
--- NOTE | 2020-03-27 12:33 | ROOR ---
Patient Name: Yung Blair Procedure Date: 03/27/2020 11:42 AM Date of : 1970 Age: 50 Room: [facility] Gender: Male Note Status: Finalized Procedure: Upper GI endoscopy Indications: Cirrhosis rule out esophageal varices Providers: Joseluis Jensen MD Referring MD: ABEBE Aguirre Requesting Provider: Medicines: Monitored Anesthesia Care Complications: No immediate complications. Procedure: Pre-Anesthesia Assessment: - Prior to the procedure, a History and Physical was performed, and patient medications and allergies were reviewed. The patient is competent. The risks and benefits of the procedure and the sedation options and risks were discussed with the patient. All questions were answered and informed consent was obtained. Patient identification and proposed procedure were verified by the nurse and the anesthesiologist in the procedure room. Mental Status Examination: alert and oriented. Airway Examination: normal oropharyngeal airway and neck mobility. Respiratory Examination: clear to auscultation. CV Examination: normal. Prophylactic Antibiotics: The patient does not require prophylactic antibiotics. Prior Anticoagulants: The patient has taken no previous anticoagulant or antiplatelet agents. ASA Grade Assessment: II - A patient with mild systemic disease. After reviewing the risks and benefits, the patient was deemed in satisfactory condition to undergo the procedure. The anesthesia plan was to use monitored anesthesia care (MAC). Immediately prior to administration of medications, the patient was re-assessed for adequacy to receive sedatives. The heart rate, respiratory rate, oxygen saturations, blood pressure, adequacy of pulmonary ventilation, and response to care were monitored throughout the procedure. The physical status of the patient was re-assessed after the procedure. The Endoscope was introduced through the mouth, and advanced to the second part of duodenum. The upper GI endoscopy was accomplished without difficulty. The patient tolerated the procedure well. Findings: Two columns of non-bleeding grade I, small (< 5 mm) varices were found in the lower third of the esophagus,. No stigmata of recent bleeding were evident and no red amadou signs were present. Severe, diffuse portal hypertensive gastropathy was found in the gastric body and in the gastric antrum. Biopsies were taken with a cold forceps for Helicobacter pylori testing. Verification of patient identification for the specimen was done by the physician and nurse using the patient's name, date and medical record number. Estimated blood loss was minimal. The duodenal bulb and second portion of the duodenum were normal. Impression: - Non-bleeding grade I and small (< 5 mm) esophageal varices. - Portal hypertensive gastropathy. Biopsied. - Normal duodenal bulb and second portion of the duodenum. Recommendation: - Patient has a contact number available for emergencies. The signs and symptoms of potential delayed complications were discussed with the patient. Return to normal activities tomorrow. Written discharge instructions were provided to the patient. - High fiber diet, low fat diet and low sodium diet. - Continue present medications. - Await pathology results. - No ibuprofen, naproxen, or other non-steroidal anti-inflammatory drugs. - Give a beta gurmeet with dosage titrated by the heart rate. - Return to GI clinic as previously scheduled. - Return to primary care physician. Procedure Code(s): --- Professional --- 34719, Esophagogastroduodenoscopy, flexible, transoral; with biopsy, single or multiple Diagnosis Code(s): --- Professional --- K74.60, Unspecified cirrhosis of liver I85.10, Secondary esophageal varices without bleeding K76.6, Portal hypertension K31.89, Other diseases of stomach and duodenum CPT copyright 2019 [employer]. All rights reserved. The codes documented in this report are preliminary and upon phlebotomist supervisor/instructor review may be revised to meet current compliance requirements. Joseluis eJnsen MD Joseluis Jensen MD 03/27/2020 12:32:52 PM Electronically signed by Joseluis Jensen MD Number of Addenda: 0 Note Initiated On: 03/27/2020 11:42 AM Estimated Blood Loss: Estimated blood loss: none.
== END 2020-03-27 12:41 | disposition home or self-care (01) ==
LOC: M OPP 11:03
PROVIDERS: ATTEND Internal Medicine Gastroenterology
DX: K74.60 Unspecified cirrhosis of liver (principal); D13.1 Benign neoplasm of stomach; I85.10 Secondary esophageal varices without bleeding; K76.6 Portal hypertension; K31.89 Other diseases of stomach and duodenum; R12 Heartburn; E78.5 Hyperlipidemia, unspecified; K21.9 Gastro-esophageal reflux disease without esophagitis; Z79.899 Other long term (current) drug therapy; Z80.8 Family history of malignant neoplasm of other organs or systems
CPT/HCPCS: 43239; 88305; J3010

== ENCOUNTER → 2020-05-22 | Outpatient (CLI) | payer BC ==
[~2020-05-22] MED LIST changes: -LIDOCAINE 2% 100MG/5ML SDV (FOR ANES.) As Ordered ONE; -NS 1,000 ML IV ONE; -fentaNYL 100 MCG/2 ML INJECTION (J3010) As Ordered ONE; -propofoL 200 MG/20 ML VIAL As Ordered ONE
--- NOTE | 2020-05-22 09:00 | REP ---
INDICATION: CIRRHOSIS, ESOP VARICIES, PORTAL HYPERTENSION COMPARISON: 03/16/2020 TECHNIQUE: Real time B-mode west scale ultrasound examination using curved array transducer. FINDINGS: Liver is hyperechoic suggesting fatty infiltration without focal hepatic lesion identified. Spleen is normal in appearance and measures 10.0 x 9.3 x 3.5 cm. Pancreas is unremarkable although limited due to interposed bowel gas. The gallbladder demonstrates layering sludge without wall thickening or pericholecystic fluid to suggest acute cholecystitis. No biliary ductal dilatation appreciated and the common bile duct measures 3.4 mm diameter. Bilateral kidneys are normal in reniform shape without hydronephrosis. Right kidney measures 11.2 x 5.8 x 5.8 cm. Left kidney measures 12.0 x 6.5 x 6.0 cm. Visualized abdominal aorta appears normal and measures 1.9 cm maximal diameter. No ascites. IMPRESSION: Essentially normal age-appropriate complete abdominal ultrasound. <Electronically signed by Eulalio Sheridan > 05/22/20 0856
== END ==
LOC: M RAD 07:00
PROVIDERS: ATTEND Internal Medicine Gastroenterology
DX: K74.60 Unspecified cirrhosis of liver (principal); I85.10 Secondary esophageal varices without bleeding; K76.6 Portal hypertension

== ENCOUNTER → 2020-07-03 | Outpatient (CLI) | payer BC ==
--- NOTE | 2020-07-04 07:55 | REP ---
INDICATION: LOW BACK AND HIP PAIN COMPARISON: 01/13/2019 TECHNIQUE: AP, lateral, bilateral oblique, and coned-down views of the lumbar spine. FINDINGS: Stable chronic mild levoconvex scoliosis centered at L3-4 with associated right-sided endplate sclerosis osteophytosis and asymmetric disc space narrowing noted on frontal radiograph and unchanged. Moderate early advanced degenerative changes are noted throughout the lumbar spine including endplate sclerosis, marginal spurring and disc space narrowing. Findings are relatively stable when compared to 2019. No acute fracture/compression injury or subluxation. IMPRESSION: Chronic multilevel degenerative spondylosis <Electronically signed by Eulalio Sheridan > 07/04/20 2013
--- NOTE | 2020-07-04 07:56 | REP ---
INDICATION: LOW BACK AND HIP PAIN COMPARISON: None. TECHNIQUE: AP and frog-lateral views of the left hip FINDINGS: Early advanced degenerative changes include periarticular sclerosis with joint space narrowing and marginal spurring. No acute fracture or dislocation. IMPRESSION: Early advanced degenerative changes to the left hip. <Electronically signed by Eulalio Sheridan > 07/04/20 0753
== END ==
LOC: M ADAMS 08:03
PROVIDERS: ATTEND Physician Assistant Medical
DX: M51.36 Other intervertebral disc degeneration, lumbar region (principal); M16.12 Unilateral primary osteoarthritis, left hip; K76.0 Fatty (change of) liver, not elsewhere classified; M54.5 Low back pain; M25.552 Pain in left hip

== ENCOUNTER → 2020-07-03 | Outpatient (REF) | payer BC ==
[2020-07-03 13:16] LABS: BASO % 0.5 % (0.0-1.0); EOS % 0.5 % (0.0-3.0); HEMATOCRIT 45.9 % (42.0-52.0); HEMOGLOBIN 14.8 g/dl (13.5-17.5); LYMPH # 1.8 10^3/uL (1.5-5.0); LYMPH % 19.8 % (24.0-44.0); MEAN CORPUSCULAR HEMOGLOBIN 31.6 pg (27.0-33.0); MEAN CORPUSCULAR HGB CONC 32.2 g/dl (32.0-36.5); MEAN CORPUSCULAR VOLUME 98.1 fl (80.0-96.0); MONO % 11.3 % (2.0-8.0); NEUTROPHILS % 67.6 % (36.0-66.0); PLATELET COUNT, AUTOMATED 213 10^3/uL (150-450); RED BLOOD COUNT 4.68 10^6/uL (4.30-6.10); WHITE BLOOD COUNT 8.9 10^3/uL (4.0-10.0)
[2020-07-03 13:34] LABS: ALBUMIN 3.5 GM/DL (3.2-5.2); ALT/SGPT 90 U/L (12-78); BLOOD UREA NITROGEN 11 MG/DL (7-18); CALCIUM LEVEL 8.9 MG/DL (8.5-10.1); CARBON DIOXIDE LEVEL 28 MEQ/L (21-32); CHLORIDE LEVEL 108 MEQ/L (98-107); CHOLESTEROL LEVEL 310 MG/DL (<200); CHOLESTEROL RISK RATIO 4.133 (<5); CREATININE FOR GFR 0.54 MG/DL (0.70-1.30); GLOMERULAR FILTRATION RATE > 60.0 (>60); GLUCOSE, FASTING 95 MG/DL (70-100); HDL CHOLESTEROL 75 MG/DL (>40); LDL CHOLESTEROL 214 MG/DL (<100); NON-HDL-C 235 MG/DL; POTASSIUM SERUM 4.3 MEQ/L (3.5-5.1); SODIUM LEVEL 141 MEQ/L (136-145); THYROID STIMULATING HORMONE 0.429 uIU/ML (0.358-3.740); TOTAL PROTEIN 6.7 GM/DL (6.4-8.2); TRIGLYCERIDES LEVEL 103 MG/DL (<150)
[2020-07-03 13:58] LABS: HEMOGLOBIN A1c 6.8 %
== END ==
LOC: M SFHCADAM 08:01
PROVIDERS: ATTEND Physician Assistant Medical
DX: E78.2 Mixed hyperlipidemia (principal); E66.01 Morbid (severe) obesity due to excess calories; F10.10 Alcohol abuse, uncomplicated; K21.9 Gastro-esophageal reflux disease without esophagitis; K76.0 Fatty (change of) liver, not elsewhere classified; E78.1 Pure hyperglyceridemia; M54.5 Low back pain; G89.29 Other chronic pain; M25.552 Pain in left hip

== ENCOUNTER → 2020-07-18 | Outpatient (CLI) | payer BC ==
--- NOTE | 2020-07-18 14:35 | REP ---
INDICATION: PAIN LEFT HIP. COMPARISON: None. TECHNIQUE: Single limited view of the pelvis. FINDINGS: Hip joints demonstrate periarticular sclerosis, osteophytosis, and near complete joint space obliteration. No evidence for acute or healed fracture. IMPRESSION: Advanced bilateral osteoarthritic degenerative changes (left greater than right). <Electronically signed by Eulalio Sheridan > 07/18/20 [id number]
== END ==
LOC: M SOG 14:14
PROVIDERS: ATTEND Orthopaedic Surgery Adult Reconstructive Orthopaedic Surgery
DX: M16.0 Bilateral primary osteoarthritis of hip (principal)

== ENCOUNTER → 2020-08-15 | Outpatient (CLI) | payer BC ==
[~2020-08-15] MED LIST changes: +BUPIVACAINE HCL 0.5% 10ML VIAL As Ordered ONE; +ISOVUE-300 61% 50ML VIAL As Ordered ONE; +methylPREDNISolone 80MG/ML SUSP 1ML VIAL (J1040) As Ordered ONE
--- NOTE | 2020-08-15 16:47 | REP ---
INDICATION: OSTEOARTHRITIS LEFT HIP. COMPARISON: None TECHNIQUE: The procedure was performed by REGINA New, under the direct supervision of Dr. Jones. The benefits and risks of the procedure were explained to the patient, and an informed consent was obtained. Directly prior to the start of the procedure, a formal time-out was completed in the procedure room. The left femoral neck joint space was localized using fluoroscopic guidance. The skin was prepped and draped in a sterile fashion. Approximately 5 mL of 1% Lidocaine 10 mg/ml was used as a local anesthetic. Using fluoroscopic guidance, a #22 gauge spinal needle was inserted and advanced into the left femoral neck joint space. Approximately 1 mL of Isovue 300 was injected to verify placement. Four mL of a solution containing 3 mL 0.5% bupivacaine 5 mg/ml and 1 mL Depo-Medrol 80 milligrams/milliliter was injected into the joint space. The needle was removed and hemostasis was achieved. FINDINGS: The patient tolerated the procedure well and there were no immediate complications. IMPRESSION: 1. Fluoroscopically guided intra-articular left hip pain injection. 0.3 minutes of fluoroscopy time was utilized for this procedure. Some fluoroscopic images are performed with last image hold technology. These images require no additional radiation. <Electronically signed by Nohemi Wiley > 08/15/20 1421 <Electronically signed by Cleveland Jones > 08/15/20 [id number]
== END ==
LOC: M RADPRO 13:07
PROVIDERS: ATTEND Orthopaedic Surgery Adult Reconstructive Orthopaedic Surgery
DX: M16.32 Unilateral osteoarthritis resulting from hip dysplasia, left hip (principal)
CPT/HCPCS: 20610; 77002; J1040; Q9967

== ENCOUNTER → 2020-10-02 | Outpatient (CLI) | payer BC ==
[~2020-10-02] MED LIST changes: -BUPIVACAINE HCL 0.5% 10ML VIAL As Ordered ONE; -ISOVUE-300 61% 50ML VIAL As Ordered ONE; -methylPREDNISolone 80MG/ML SUSP 1ML VIAL (J1040) As Ordered ONE
--- NOTE | 2020-10-02 09:01 | REP ---
INDICATION: PORTAL HYPERTENSION, CIRRHOSIS OF LIVER. COMPARISON: Complete abdominal ultrasound dated 05/22/2020. TECHNIQUE: Multiple ultrasonographic images of the abdominal right upper quadrant to assess for hepatic mass and ascites. FINDINGS: The gallbladder is partially contracted, limiting evaluation. No definite cholelithiasis is identified. There is no gallbladder wall thickening or pericholecystic fluid. There is no intrahepatic or extrahepatic biliary duct dilatation. The common biliary duct measures 4 mm in diameter. The hepatic parenchyma is diffusely coarsened. This is compatible with diffuse hepatocellular disease. No hepatic masses or nodules are identified. The pancreas is obscured by bowel gas. The right kidney measures 12.1 x 5.7 x 5.3 cm and is normal size. There is no right renal calculus, hydronephrosis, solid mass or cystic mass. There is no abdominal right upper quadrant ascites. IMPRESSION: There is no hepatic nodule or mass. The hepatic parenchyma is diffusely coarsened. This is compatible with diffuse hepatocellular disease. There is no right upper quadrant abdominal ascites. <Electronically signed by Cleveland Myrick > 10/02/20 0857
== END ==
LOC: M RAD 08:09
PROVIDERS: ATTEND Internal Medicine Gastroenterology
DX: K76.0 Fatty (change of) liver, not elsewhere classified (principal); K76.6 Portal hypertension; I85.10 Secondary esophageal varices without bleeding; K70.31 Alcoholic cirrhosis of liver with ascites

== ENCOUNTER → 2020-12-18 | Outpatient (REF) | payer BC ==
[2020-12-18 12:54] LABS: BASO % 0.4 % (0.0-1.0); EOS # 0.1 10^3/uL (0.0-0.5); HEMATOCRIT 49.7 % (42.0-52.0); HEMOGLOBIN 16.8 g/dl (13.5-17.5); LYMPH % 19.4 % (24.0-44.0); MEAN CORPUSCULAR HEMOGLOBIN 32.1 pg (27.0-33.0); MEAN CORPUSCULAR HGB CONC 33.8 g/dl (32.0-36.5); MONO # 0.8 10^3/uL (0.0-0.8); MONO % 7.3 % (2.0-8.0); NEUTROPHILS # 7.4 10^3/uL (1.5-8.5); NEUTROPHILS % 71.1 % (36.0-66.0); PLATELET COUNT, AUTOMATED 210 10^3/uL (150-450); RED BLOOD COUNT 5.23 10^6/uL (4.30-6.10); WHITE BLOOD COUNT 10.4 10^3/uL (4.0-10.0)
[2020-12-18 14:08] LABS: ALBUMIN 3.3 GM/DL (3.2-5.2); ALT/SGPT 147 U/L (12-78); BILIRUBIN,TOTAL 2.2 MG/DL (0.2-1.0); BLOOD UREA NITROGEN 9 MG/DL (7-18); CALCIUM LEVEL 9.8 MG/DL (8.5-10.1); CARBON DIOXIDE LEVEL 40 MEQ/L (21-32); CHLORIDE LEVEL 78 MEQ/L (98-107); CHOLESTEROL LEVEL 335 MG/DL (<200); CHOLESTEROL RISK RATIO 4.466 (<5); CREATININE FOR GFR 0.73 MG/DL (0.70-1.30); GLOMERULAR FILTRATION RATE > 60.0 (>60); GLUCOSE, FASTING 272 MG/DL (70-100); HDL CHOLESTEROL 75 MG/DL (>40); LDL CHOLESTEROL 213 MG/DL (<100); NON-HDL-C 260 MG/DL; POTASSIUM SERUM 2.9 MEQ/L (3.5-5.1); SODIUM LEVEL 128 MEQ/L (136-145); TOTAL PROTEIN 7.1 GM/DL (6.4-8.2); TRIGLYCERIDES LEVEL 233 MG/DL (<150)
== END ==
LOC: M SFHCADAM 08:05
PROVIDERS: ATTEND Physician Assistant Medical
DX: K76.0 Fatty (change of) liver, not elsewhere classified (principal); E66.01 Morbid (severe) obesity due to excess calories; E78.2 Mixed hyperlipidemia; F10.10 Alcohol abuse, uncomplicated; K21.9 Gastro-esophageal reflux disease without esophagitis

== ENCOUNTER 2020-12-20 15:27 | Inpatient (IN) | payer BC ==
[~2020-12-20] VITALS: Ht 177.8 cm; Wt 88.5 kg
[~2020-12-20 15:27] MED LIST changes: -ALCOPAD25 TOP; -BASA100I SC; -BLOOKIT21 XX; -GLUC1TES2 XX; -HYDR-3363; -HYDR-3363 PO; -LANC30MI XX; -NOVOINJ3 SC; -PEN1MIS21 SC; -POTA-141 PO
--- OUTSIDE RECORDS SUMMARY | 2020-12-20 15:36 | CCD ---
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 Name Role Phone Caprice Ruiz Unavailable PROBLEMS Type Condition ICD9-CM Code WLI22-[id number] Code Onset Dates Condition S tatus W/U Status Risk SNOMED Code Notes Problem Mixed hyperlipidemia E78.2 Active confirmed 267521048 Problem Morbid obesity due to excess calories E66.01 Ac tive confirmed 612144085 Problem Hypertriglyceridemia E78.1 Active confirmed 955218425 Problem Other chronic pain G89.29 Active confirmed 8 0349879 Problem Annual physical exam Z00.00 Active confirmed 55832285 Problem Gastroesophageal reflux disease without esophagitis K21.9 Active confirmed 542954542 Problem Alcohol abuse F10.10 Active confirmed 304978 05 Problem Fatty liver K76.0 Active confirmed [id number] ALLERGIES No Known Allergies ENCOUNTERS from 1970 to 2020-12-06 Encounter Location Date Provider Diagnosis [address] [place] [address] Nov, 2020 Caprice Ruiz IMMUNIZATIONS Vaccine Route Administration Date Status TDAP 0.5mL (Boostrix) IM Intramuscular Dec 28, 2015 Administe red SOCIAL HISTORY Tobacco Use: Social History Observation Description Date Details (start date - stop date) Never Smoker Sex Assigned At : Social History Observation Description Sex Assigned At Unknown Audit Question Answer Notes Total Score: 0 Interpretation: Alcohol Education Drug and Alcohol Question Answer Notes Total Score: 0 Interpretation: No problems reported Alcohol Screening: Question Answer Notes Did you have a drink containing alcohol in the past year? Ye s Points 8 Interpretation Positive How often did you have six or more drinks on one occas ion in the past year? Weekly (3 points) How many drinks did you have on a typica l day when you were drinking in the past year? 3 or 4 (1 point) How often did you have a drink containing alcohol in t he past year? Four or more times a week (4 points) BMI Care Goal Follow-Up Question Answer Notes Above Normal BMI Follow-Up Dietary management educatio n, guidance, and counseling, Dietary needs education, Exercise promotion: strength training Tobacco Use: Question Answer Notes Are you a: never smoker REASON FOR REFERRAL No Information VITAL SIGNS No information MEDICATIONS Medication SIG (Take, Route, Frequency, Duration) Notes Start Da te End Date Status Folic Acid 1 MG 1 tablet Oral Daily for 90 days Active Omeprazole 40 MG 1 capsule 30 minutes before morning meal Orally Once a day for 90 day(s) Active Propranolol HCl 10 MG 1 tablet Orally Twice a day for 90 day(s) Active Thiamine HCl 100 MG 1 tablet Oral Daily for 90 day(s) Active Simvastatin 40 MG 1 tablet in the evening Orally Once a day for 90 day(s) Oct, Active Furosemide 40 MG 1 tablet Oral Daily for 90 day(s) Active hydrOXYzine HCl 25 MG 1 tablet as needed orally Daily as needed for 90 day(s) Active Azithromycin 250 MG 2 tablet on the first day, then 1 tablet daily for 4 days Orally Once a day for 5 day(s) Nov, A ctive Aleve 220 MG 2 tablet with food or milk as needed Orally every 12 hrs Not-Taking PROCEDURES No Information RESULTS No Results REASON FOR VISIT whooping cough exposure MEDICAL (GENERAL) HISTORY Type Description Date Medical History GERD Medical History hyperlipidemia Medical History morbid obesity Medical History prediabetes 07/11 Medical History alcohol abuse, quit 02/20/2020 Medical History umbilical hernia Medical History Fatty liver, alcoholic cirrhosis - Nick ral Surgical History No know Surgical history Goals Section No Information Health Concerns No Information MEDICAL EQUIPMENT No Information MENTAL STATUS No Information FUNCTIONAL STATUS No Information ASSESSMENTS No Information PLAN OF TREATMENT Medication Medication Name Sig Start Date Stop Date Folic Acid 1 MG 1 tablet Oral Daily for 90 days hydrOXYzine HCl 25 MG 1 tablet as needed orally Daily as needed for 90 day(s) Azithromycin 250 MG 2 tablet on the first day, then 1 tablet daily for 4 days Orally Once a day for 5 day(s) Nov, Furosemide 40 MG 1 tablet Oral Daily for 90 day(s) Propranolol HCl 10 MG 1 tablet Orally Twice a day for 90 day(s) Thiamine HCl 100 MG 1 tablet Oral Daily for 90 day(s) Omeprazole 40 MG 1 capsule 30 minutes before morning meal Orally Once a day for 90 day(s) Simvastatin 40 MG 1 tablet in the evening Orally Once a da y for 90 day(s) Oct, Next Appt Details Provider Name:Caprice Ruiz, 2020-12-07 08:00:00 AM, [address] , [place], [address], Insurance Providers Payer Name Payer Address Payer Phone Insured Name Patient Relati onship to Insured Coverage Start Date Coverage End Date [facility] [employer] [address] [address] [facility] [id number] [place] [id number]
--- OUTSIDE RECORDS SUMMARY | 2020-12-20 15:36 | CCD ---
Author Author [facility] Organization [facility] Address Unknown Phone Unavailable Care Team Providers Care Tariff Supervisor Name Role Phone Emiliano Yusuf MD Unavailable Unavailable Emiliano Yusuf MD Unavailable Unavailable Emiliano Yusuf MD Unavailable Unavailable Emiliano Yusuf MD Unavailable Unavailable Emiliano Yusuf MD Unavailable Unavailable Emiliano Yusuf MD Unavailable Unavailable Emiliano Yusuf MD Unavailable Unavailable Emiliano Yusuf MD Unavailable Unavailable Emiliano Yusuf MD Unavailable Unavailable Emiliano Yusuf MD Unavailable Unavailable Flakita ARELLANO MD Unavailable [...] Unavailable Flakita ARELLANO MD Unavailable Unavailable Flakita ARELALNO MD Unavailable Unavailable Flakita ARELLANO MD Unavailable Unavailable CHANDRALFlakita Rhodes MD Unavailable Unavailable KELLYRALAFlakita MD Unavailable Unavailable KELLYRALAFlakita MD Unavailable Unavailable KELLYRALAFlakita MD Unavailable Unavailable KELLYRALAFlakita MD Unavailable Unavailable KELLYRALAFlakita MD Unavailable Unavailable KELLYRALAFlakita MD Unavailable Unavailable KELLYRALA K EH JERRY Unavailable Unavailable KELLYRALAFlakita MD Unavailable Unavailable KELLYRALA K EH JERRY Unavailable Unavailable KELLYRALA K EH JERRY Unavailable Unavailable KELLYRALA K EH JERRY Unavailable Unavailable Re-disclosure Warning The records that [...] is protected by Article 27-F of the [facility] Public Health law. If you continue you may have access to information: Regarding HIV / AIDS; Provided by facilities licensed or operated by the [facility] Office of Mental Health; or Provided by the [facility] Office for People With Developmental Disabilities. If such information is present, then the following [facility] mandated warning applies: This information has been [...] law may result in a fine or retirement sentence or both. A general authorization for the release of medical or other information is NOT sufficient authorization for further disc losure. Encounters Encounter Providers Location Date Indications Data Source(s ) [place] [address] [address] 12/07/2020 12:00:00 AM EDT [facility]1 ([facility]) [place] [address] [address] 12/05/2020 12:00:00 AM EDT eCW1 ([facility]) Outpatient Attender: Emiliano Sainz/[place]/Bernardo/Rein dl 11/23/2020 03:30:00 PM EDT [facility] ([facility] Outpatient Attender: EH Sainz/[place]/Ang el/Reindl 11/15/2020 03:40:00 PM EDT [facility] ([facility]) Outpatient Attender: EH Sainz/[place]/Ang el/Reindl 09/13/2020 02:30:00 PM EDT [facility] ([facility]) Outpatient Attender: Emiliano Sainz/[place]/Bernardo/Rein dl 07/18/2020 02:30:00 PM EDT [facility] ([facility]) [place] [address] [address] 06/26/2020 12:00:00 AM EDT eCW1 ([facility]) [place] [address] [facility] [place] [address] 06/09/2020 12:00:00 AM EDT eCW1 ([facility]) [place] [address] [address] 05/22/2020 12:00:00 AM EDT eCW1 ([facility]) Outpatient Attender: EH Sainz/[place]/Ang el/Reindl 04/16/2020 02:20:00 PM EST MEDENT ([facility]) Outpatient Attender: EH Sainz/[place]/Ang el/Reindl 03/01/2020 01:10:00 PM EST [facility] ([facility]) [place] [address] [address] 12/05/2019 12:00:00 AM EDT eCW1 ([facility]) Immunizations Vaccine Date Status Description Data Source(s) influenza, recombinant, quadrIvalent,injectable, prese rvative free 12/07/2020 08:03:00 AM EDT completed eCW1 ([facility]) COVID-19 VACCINE Moderna 07/27/2020 12:00:00 AM EDT completed [facility] Vaccine Series Complete: YESThis Data wa s Submitted to [facility] Via [employer]. COVID-19 VACCINE Moderna 06/29/2020 12:00:00 AM EDT completed [facility] Vaccine Series Complete: NOThis Data was Submitted to [facility] Via [employer]. Medications Medication Brand Name Start Date Product Form Dose Route Admi nistrative Instructions Pharmacy Instructions Status Indications Reaction Description Data Source(s) 10 mEq 12/18/2020 12:00:00 AM EDT tablet,ER particles/cry stals 30 TAKE TWO TABLETS BY MOUTH EVERY DAY FOR 3 DAYS, THEN 1 TABLET DAILY TAKE TWO TABLETS BY MOUTH EVERY DAY FOR 3 DAYS, THEN 1 TABLET DAILY SOLD: 12/18/2020 [facility] Citric Acid 75 MG/ML / Magnesium Oxide 2 1.9 MG/ML / picosulfate sodium 0.0625 MG/ML Oral Solution [Clenpiq] 10 mg-3.5 gram -12 gram/160 mL SOD PICOSULF/MAG OX/CITRIC AC 12/13/2020 12:00:00 AM EDT solution 320 F OLLOW PRE-PROCEDURE INSTRUCTIONS. START DAY BEFORE PROCEDURE FOLLOW PRE-PROCEDURE INSTRUCTIONS. START DAY BEFORE PROCEDURE SOLD: 12/18/2020 [facility] 5 mg 12/13/2020 12:00:00 AM EDT tablet,delayed release (DR/EC) 4 TAKE 4 TABLETS BY MOUTH TOGETHER PER BOWEL PREPARATION INSTRUCTIONS TAKE 4 TABLETS BY MOUTH TOGETHER PER BOWEL PREPARATION INSTRUCTIONS SOLD: 12/18/2020 [facility] 40 mg 12/08/2020 12:00:00 AM EDT tablet 90 TAKE ONE TABLET BY MOUTH EVERY EVENING TAKE ONE TABLET BY MOUTH EVERY EVENING SOLD: 12/09/2020 [facility] 25 mg 12/08/2020 12:00:00 AM EDT tablet 90 TAKE ONE TABLET BY MOUTH EVERY DAY NEEDED TAKE ONE TABLET BY MOUTH EVERY DAY NEEDED SOLD: 12/09/2020 [facility] 40 mg 12/08/2020 12:00:00 AM EDT capsule,delayed release (DR/EC) 90 TAKE ONE CAPSULE 30 MINUTES BEFORE MORNING MEAL TAKE ONE CAPSULE 30 MINUTES BEFORE MORNING MEAL SOLD: 12/09/2020 [facility] 10 mg 12/07/2020 12:00:00 AM EDT tablet 90 TAKE ONE TABLET BY MOUTH EVERY DAY TAKE ONE TABLET BY MOUTH EVERY DAY SOLD: 12/08/2020 [facility] 40 mg 12/07/2020 12:00:00 AM EDT tablet 90 TAKE ONE TABLET BY MOUTH EVERY DAY TAKE ONE TABLET BY MOUTH EVERY DAY SOLD: 12/08/2020 [facility] Azithromycin 250 MG Oral Tablet Azithromycin 250 MG 12/06/2020 1 2:00:00 AM EDT active Azithromycin 250 MG eCW1 ([facility]) 250 mg 12/06/2020 12:00:00 AM EDT tablet 6 TAKE TWO TABLETS BY MOUTH AT ONCE ON THE FIRST DAY THEN TAKE ONE DAILY THEREAFTER TAKE TWO TABLETS BY MOUTH AT ONCE ON THE FIRST DAY THEN TAKE ONE DAILY THEREAFTER SOLD: 12/07/2020 [facility] Azithromycin 250 MG Oral Tablet Azithromycin 250 MG 12/06/2020 1 2:00:00 AM EDT active Azithromycin 250 MG eCW1 ([facility]) 10 mg 06/23/2020 12:00:00 AM EDT tablet 180 TAKE ONE TABLET BY MOUTH TWICE A DAY TAKE ONE TABLET BY MOUTH TWICE A DAY SOLD: 09/26/2020 [facility] 1 mg 06/23/2020 12:00:00 AM EDT tablet 90 TAKE ONE TABLET BY MOUTH EVERY DAY TAKE ONE TABLET BY MOUTH EVERY DAY SOLD: 06/26/2020 [facility] 25 mg 06/23/2020 12:00:00 AM EDT tablet 90 TAKE ONE TABLET BY MOUTH EVERY DAY NEEDED TAKE ONE TABLET BY MOUTH EVERY DAY NEEDED SOLD: 06/26/2020 [facility] 10 mg 06/23/2020 12:00:00 AM EDT tablet 180 TAKE ONE TABLET BY MOUTH TWICE A DAY TAKE ONE TABLET BY MOUTH TWICE A DAY SOLD: 06/26/2020 [facility] 40 mg 06/23/2020 12:00:00 AM EDT capsule,delayed release (DR/EC) 90 TAKE ONE CAPSULE BY MOUTH EVERY MORNING 30 MINUTES BEFORE MEAL TAKE ONE CAPSULE BY MOUTH EVERY MORNING 30 MINUTES BEFORE MEAL SOLD: 06/26/2020 [facility] 40 mg 06/23/2020 12:00:00 AM EDT tablet 90 TAKE ONE TABLET BY MOUTH EVERY EVENING TAKE ONE TABLET BY MOUTH EVERY EVENING SOLD: 06/26/2020 [facility] 1 mg 06/23/2020 12:00:00 AM EDT tablet 90 TAKE ONE TABLET BY MOUTH EVERY DAY TAKE ONE TABLET BY MOUTH EVERY DAY SOLD: 10/13/2020 [facility] 40 mg 06/22/2020 12:00:00 AM EDT tablet 90 TAKE ONE TABLET BY MOUTH EVERY DAY TAKE ONE TABLET BY MOUTH EVERY DAY SOLD: 09/26/2020 [facility] 100 mg 06/22/2020 12:00:00 AM EDT tablet 90 TAKE ONE TABLET BY MOUTH EVERY DAY TAKE ONE TABLET BY MOUTH EVERY DAY SOLD: 06/26/2020 [facility] 40 mg 06/22/2020 12:00:00 AM EDT tablet 90 TAKE ONE TABLET BY MOUTH EVERY DAY TAKE ONE TABLET BY MOUTH EVERY DAY SOLD: 06/26/2020 [facility] 100 mg 06/22/2020 12:00:00 AM EDT tablet 90 TAKE ONE TABLET BY MOUTH EVERY DAY TAKE ONE TABLET BY MOUTH EVERY DAY SOLD: 10/13/2020 [facility] 20 mg 05/23/2020 12:00:00 AM EDT capsule,delayed release (DR/EC) 180 TAKE TWO CAPSULES BY MOUTH EVERY DAY TAKE TWO CAPSULES BY MOUTH EVERY DAY SOLD: 05/25/2020 [facility] 100 mg 04/18/2020 12:00:00 AM EST tablet 90 TAKE ONE TABLET BY MOUTH ONCE DAILY TAKE ONE TABLET BY MOUTH ONCE DAILY SOLD: 04/23/2020 [facility] Folic Acid 1 MG Oral Tablet FOLIC ACID 04/17/2020 12:00:00 AM EST tabl et 90 TAKE ONE TABLET BY MOUTH EVERY DAY AFTER MEALS TAKE ONE TABLET BY MOUTH EVERY DAY AFTER MEALS SOLD: 04/18/2020 [facility] 25 mg 04/17/2020 12:00:00 AM EST tablet 90 TAKE ONE TABLET BY MOUTH IN THE EVENING FOR ITCHING ( CAN CAUSE SOME DROWSINESS) TAKE ONE TABLET BY MOUTH IN THE EVENING FOR ITCHING ( CAN CAUSE SOME DROWSINESS) SOLD: 04/18/2020 [facility] Folic Acid 1 MG Oral Tablet Folic Acid 04/16/2020 12:00:00 AM EST ORAL active MEDENT ([facility], ) Thiamine 100 MG Oral Tablet Thiamine HCL 04/16/2020 12:00:00 AM EST ORAL active MEDENT ([facility]) Hydroxyzine Hydrochloride 25 MG Oral Tablet Hydroxyzine HCL 04/16/2020 12:00:00 AM EST ORAL active [facility] ([facility]) 10 mg 03/28/2020 12:00:00 AM EST tablet 60 TAKE ONE TABLET BY MOUTH TWICE A DAY, HOLD DOSE IF HAVING DIZZINESS OR LIGHT HEADEDNESS TAKE ONE TABLET BY MOUTH TWICE A DAY, HOLD DOSE IF HAVING DIZZINESS OR LIGHT HEADEDNESS SOLD: 03/30/2020 [facility] 10 mg 03/28/2020 12:00:00 AM EST tablet 60 TAKE ONE TABLET BY MOUTH TWICE A DAY, HOLD DOSE IF HAVING DIZZINESS OR LIGHT HEADEDNESS TAKE ONE TABLET BY MOUTH TWICE A DAY, HOLD DOSE IF HAVING DIZZINESS OR LIGHT HEADEDNESS SOLD: 04/29/2020 [facility] 10 mg 03/28/2020 12:00:00 AM EST tablet 60 TAKE ONE TABLET BY MOUTH TWICE A DAY, HOLD DOSE IF HAVING DIZZINESS OR LIGHT HEADEDNESS TAKE ONE TABLET BY MOUTH TWICE A DAY, HOLD DOSE IF HAVING DIZZINESS OR LIGHT HEADEDNESS SOLD: 05/30/2020 [facility] Propranolol Hydrochloride 10 MG Oral Tablet Propranolol HCL 03/27/2020 12:00:00 AM EST ORAL active MEDENT ([facility]) 40 mg 03/05/2020 12:00:00 AM EST tablet 60 TAKE 1 TABLET BY MOUTH IN THE MORNING FOR 7 DAYS (AFTER THAT INCREASE TO TWO TIMES A DAY DEPENDING ON ULTRASOUND AND LABS) TAKE 1 TABLET BY MOUTH IN THE MORNING FO R 7 DAYS (AFTER THAT INCREASE TO TWO TIMES A DAY DEPENDING ON ULTRASOUND AND LABS) SOLD: 04/05/2020 [facility] 40 mg 03/05/2020 12:00:00 AM EST tablet 60 TAKE 1 TABLET BY MOUTH IN THE MORNING FOR 7 DAYS (AFTER THAT INCREASE TO TWO TIMES A DAY DEPENDING ON ULTRASOUND AND LABS) TAKE 1 TABLET BY MOUTH IN THE MORNING FO R 7 DAYS (AFTER THAT INCREASE TO TWO TIMES A DAY DEPENDING ON ULTRASOUND AND LABS) SOLD: 03/05/2020 [facility] 40 mg 03/05/2020 12:00:00 AM EST tablet 60 TAKE 1 TABLET BY MOUTH IN THE MORNING FOR 7 DAYS (AFTER THAT INCREASE TO TWO TIMES A DAY DEPENDING ON ULTRASOUND AND LABS) TAKE 1 TABLET BY MOUTH IN THE MORNING FO R 7 DAYS (AFTER THAT INCREASE TO TWO TIMES A DAY DEPENDING ON ULTRASOUND AND LABS) SOLD: 05/25/2020 [facility] Furosemide 40 MG Oral Tablet Furosemide 03/01/2020 12:00:00 AM EST active [facility] Cephalexin 500 MG Oral Capsule CEPHALEXIN 02/20/2020 12:00:00 AM EST capsule 20 TAKE 1 CAPSULE BY MOUTH EVERY 12 HOURS TAKE 1 CAPSULE BY KALEB TH EVERY 12 HOURS SOLD: 02/20/2020 [facility] Insurance Providers Payer name Policy type / Coverage type Policy ID Covered constitution party ID Covered constitution party's relationship to olivia Policy Olivia Plan Information [id number] [place]/[id number] [place] [id number] [place]/307 [id number] [place] [id number] [place] FED[place] B [id number] P [id number] [place] 306/[id number] [place] [id number] [place] 306/[id number] [place] [id number] [employer] BCBS B [id number] P VYS [id number] ANSI-Commercial [id number] ANSI-Commercial [id number] ANSI-Commercial [id number] ANSI-Commercial [id number] [facility] FEDERAL EMPLOYEE PROGRAM [id number] [place]2 [id number] ANSI-Commercial [id number] ANSI-Commercial [id number] ANSI-Commercial [id number] ANSI-Commercial [id number] [facility] [id number] SP [id number] [facility] [id number] SP [id number] SELF PAY 5 UNAVAILABLE 1 UNAVAILA BLE ANSI-Commercial [id number] [facility] [employer] PROGRAM [id number] WI2 [id number] [facility] [employer] PROGRAM [id number] PA2 [id number] Problems, Conditions, and Diagnoses Code Display Name Description Problem Type Effective Dates Data Source(s) K70.30 [id number] Alcoholic cirrhosis of liver without asci quentin Problem 12/07/2020 12:00:00 AM EDT eCW1 ([facility]) G89.29 [id number] Other chronic pain Problem 06/22/2020 12:00: 00 AM EDT eCW1 ([facility]) Surgeries/Procedures Procedure Description Date Indications Data Source(s) Imm: Flublok Quadrivalent 18 years & older 0.5mL IM Influenz a 12/07/2020 12:00:00 AM EDT eCW1 ([facility]) OFFICE OUTPATIENT VISIT 15 MINUTES 11/23/2020 12:00:00 AM EDT MEDENT ([facility]) OFFICE OUTPATIENT VISIT 15 MINUTES 11/15/2020 12:00:00 AM EDT MEDENT ([facility]) OFFICE OUTPATIENT VISIT 15 MINUTES 09/13/2020 12:00:00 AM EDT MED[facility] ([facility]) OFFICE OUTPATIENT NEW 45 MINUTES 07/18/2020 12:00:00 A M EDT MED[facility] ([facility]) OFFICE OUTPATIENT VISIT 25 MINUTES 04/16/2020 12:00:00 AM EST MED[facility] ([facility]) Endoscopy Upper GI Biopsy 03/27/2020 12:00:00 AM EST MED[facility] ([facility]) Results ID Date Data Source [id number] 03/27/2020 12:03:00 PM EST MEDENT ([facility]) Name Value Range Interpretation Code Description Data Mai rce(s) Supporting Document(s) Surgical pathology study Laboratory test result MEDENT ([facility]) <content>FINAL DIAGNOSIS</content>
< content></content>
<content>Stomach, biopsy:</content>
<content>Gastric mucosa with reactive gastropathy.</content>
<content>No evidence for H. pylori-like organisms on H&E stain.</content>
<content>03/28/2020 - 1412</content>
<content></content>
<content>CLINICAL DIAGNOSIS</content>
<content></content>
<content>R/O varices</content>
<content>03/28/2020 - 802</content>
<content></content>
<content>GROSS DIAGNOSIS</content>
<content></content>
<content>Received in formalin labeled "gastric biopsy R/O H. pylori" and consists</content>
<content>of three fragments of martinez tissue 0.3 x 0.2 x 0.2 cm. in aggregate. All</content>
<content>in one.</content>
<content>- SV</content>
<content>03/28/2020 - 0803</content>
<content></content>
<content>Signed MARCELLE PETERSON MD 03/28/2020 1601</content>
<content></content> ID Date Data Source [id number] 03/22/2020 02:00:00 PM EST [facility] Name Value Range Interpretation Code Description Data Mai rce(s) Supporting Document(s) SARS coronavirus 2 RNA Not Detected [facility] This lab was ordered by [facility] and reported by [facility]. ID Date Data Source [id number] 03/19/2020 09:58:00 AM EST [facility] Name Value Range Interpretation Code Description Data Mai rce(s) Supporting Document(s) Creatinine [Mass/volume] in Urine 36.1 mg/dL Normal (applies to non-numeric results) [facility] ([facility]) Sodium [Moles/volume] in Urine 54 meq/L N ormal (applies to non-numeric results) [facility] ([facility]) ID Date Data Source [id number] 03/19/2020 09:58:00 AM EST [facility]) Name Value Range Interpretation Code Description Data Mai rce(s) Supporting Document(s) Blood Urea Nitrogen 10 mg/dL 7-18 Normal (applies to non-nume partha results) [facility] Glucose, Fasting 92 mg/dL 70-100 Normal (applies to non-numeric results) [facility] ([facility]) Creatinine For GFR 0.83 mg/dL 0.70-1.30 Normal (applies to non -numeric results) [facility] ([facility], ) Glomerular Filtration Rate Laboratory test result Normal (applies to non- numeric results) [facility]) <content>Units are mL/min/1.73 m2</content>
<content></content>
<content>Chronic Kidney Disease Staging per NKF:</content>
<content></content>
<content>Stage I & II GFR >=60 Normal to Mildly Decreased</content>
<content>Stage III GFR 30- 59 Moderately Decreased</content>
<content>Stage IV GFR 15-29 Severely Decreased</content>
<content>Stage V GFR <15 Very Little GFR Left</content>
<content>ESRD GFR <15 on RN ALLERGY</content>
<content></content> Potassium Serum 3.9 meq/L 3.5-5.1 Normal (applies to non-numeric results) [facility] ([facility]) Sodium Level 139 meq/L 136-145 Normal (applies to non-numeric res ults) [facility] ([facility]) Carbon Dioxide Level 32 meq/L 21-32 Normal (applies to non-num janeth results) [facility] ([facility]) Chloride Level 100 meq/L 98-107 Normal (applies to non-numeric r esults) [facility]) Anion Gap 7 meq/L 8-16 Below low normal [facility] ( [facility]) Calcium Level 9.7 mg/dL 8.5-10.1 Normal (applies to non-numeric re sults) [facility]) ID Date Data Source [id number] 03/02/2020 08:42:00 AM EST [facility]) Name Value Range Interpretation Code Description Data Mai rce(s) Supporting Document(s) Glucose, Fasting 87 mg/dL 70-100 Normal (applies to non-numeric results) [facility] ([facility]) Blood Urea Nitrogen 6 mg/dL 7-18 Below low normal [facility] ([facility]) Creatinine For GFR 0.73 mg/dL 0.70-1.30 Normal (applies to non -numeric results) [facility]) Glomerular Filtration Rate Laboratory test result Normal (applies to non- numeric results) [facility]) <content>Units are mL/min/1.73 m2</content>
<content></content>
<content>Chronic Kidney Disease Staging per NKF:</content>
<content></content>
<content>Stage I & II GFR >=60 Normal to Mildly Decreased</content>
<content>Stage III GFR 30- 59 Moderately Decreased</content>
<content>Stage IV GFR 15-29 Severely Decreased</content>
<content>Stage V GFR <15 Very Little GFR Left</content>
<content>ESRD GFR <15 on RN ALLERGY</content>
<content></content> Sodium Level 136 meq/L 136-145 Normal (applies to non-numeric res ults) [facility] ([facility]) Potassium Serum 4.8 meq/L 3.5-5.1 Normal (applies to non-numeric results) [facility] ([facility]) Chloride Level 103 meq/L 98-107 Normal (applies to non-numeric r esults) [facility]) Anion Gap 6 meq/L 8-16 Below low normal [facility] ( [facility]) Carbon Dioxide Level 27 meq/L 21-32 Normal (applies to non-num janeth results) [facility]) Calcium Level 8.8 mg/dL 8.5-10.1 Normal (applies to non-numeric re sults) [facility]) ID Date Data Source [id number] 03/02/2020 08:42:00 AM EST [facility] ([facility]) Name Value Range Interpretation Code Description Data Mai rce(s) Supporting Document(s) Inr 1.31 Normal (applies to non-numeric resul ts) [facility] ([facility]) THERAPUTIC HUMAN INR VALUES INDICATIONS NORMAL RANGES PROPHYLAXIS/TREATMENT OF: VENOUS THROMBOSIS 2.0-3.0 PULMONARY EMBOLISM 2.0-3.0 PREVENTION OF SYSTEMIC EMBOLISM FROM: TISSUE HEART VALVES 2.0-3.0 ACUTE MYOCARDIAL INFARCTION 2.0-3.0 VALVULAR HEART DISEASE 2.0-3.0 ATRIAL FIBRILLATION 2.0-3.0 MECHANICAL VALVES(HIGH RISK) 2.5-3.5 RECURRENT MYOCARDIAL INFARCTION 2.5-3.5 Prothrombin Time 16.6 s 12.5-14.3 Above high normal M [facility]) Partial Thromboplastin Time 38.4 s 24.2-38.5 Norm al (applies to non-numeric results) [facility] ([facility]) ID Date Data Source [id number] 03/02/2020 08:42:00 AM EST [facility]) Name Value Range Interpretation Code Description Data Mai rce(s) Supporting Document(s) White Blood Count 10.3 10 4.0-10.0 Above high normal [facility] ([facility]) Hematocrit 48.0 % 42.0-52.0 Normal (applies to non-numeric resul ts) [facility] ([facility]) Hemoglobin 15.5 g/dL 13.5-17.5 Normal (applies to non-numeric resul ts) [facility]) Red Blood Count 4.69 10 4.30-6.10 Normal (applies to non-numeric results) [facility]) Mean Corpuscular Volume 102.3 fl 80.0-96.0 Above high normal [facility] ([facility]) Mean Corpuscular Hemoglobin 33.0 pg 27.0-33.0 Norm al (applies to non-numeric results) [facility] ([facility]) Platelet Count, Automated 320 10 150-450 Normal (applies to non-numeric results) [facility]) Red Cell Distribution Width 14.6 % 11.5-14.5 Above high normal [facility]) Mean Corpuscular HGB Conc 32.3 g/dL 32.0-36.5 Normal (applies to non-numeric results) [facility]) Lymph % 15.8 % 24.0-44.0 Below low normal [facility] ( [facility]) Neutrophils % 66.9 % 36.0-66.0 Above high normal [facility] ([facility]) Eos % 7.2 % 0.0-3.0 Above high normal [facility] ([facility]) Nolan % 8.5 % 0.0-5.0 Above high normal [facility] ([facility]) Baso % 1.3 % 0.0-1.0 Above high normal [facility] ([facility]) Immature Granulocyte % 0.3 % 0-3.0 Normal (applies to non-n umeric results) [facility] ([facility]) Neutrophils # 6.9 10 1.5-8.5 Normal (applies to non-numeric re sults) [facility] ([facility]) Nucleated Red Blood Cell % 0.0 % 0-0 Normal (applies to n on-numeric results) [facility] ([facility]) Lymph # 1.6 10 1.5-5.0 Normal (applies to non-numeric resul ts) [facility] ([facility]) Nolan # 0.9 10 0.0-0.8 Above high normal [facility] ([facility]) Eos # 0.7 10 0.0-0.5 Above high normal [facility] ([facility]) Baso # 0.1 10 0.0-0.2 Normal (applies to non-numeric resul ts) [facility] ([facility]) ID Date Data Source [id number] 02/14/2020 08:22:00 AM EST [facility] ([facility]) Name Value Range Interpretation Code Description Data Mai rce(s) Supporting Document(s) IgA Serum (part of Subclasses) 406 mg/dL 90-386 Above high kalyan l [facility] [facility] Igasub2 302.0 mg/dL 73.2-301.2 Above high normal [facility] ([facility]) Igasub3 58.8 mg/dL 13.4-97.9 Normal (applies to non-numeric resul ts) [facility] ([facility]) ID Date Data Source [id number] 02/14/2020 08:22:00 AM [facility] ([facility]) Name Value Range Interpretation Code Description Data Mai rce(s) Supporting Document(s) Tissue transglutaminase IgA Ab [Units/volume] in Serum Labor atory test result 0-3 Normal (applies to non-numeric results) [facility]) Negative 0 - 3 Weak Positive 4 - 10 Positive >10 . Tissue Transglutaminase (tTG) has been identified as the endomysial antigen. Studies have demonstr- ated that endomysial IgA antibodies have over 99% specificity for gluten sensitive enteropathy. ID Date Data Source [id number] 02/14/2020 08:22:00 AM [facility] ([facility]) Name Value Range Interpretation Code Description Data Mai rce(s) Supporting Document(s) Fibrosis Score 0.82 0.00-0.21 Above high normal [facility] ([facility]) Fibrosis Stage Laboratory test result Normal (applies to non-numeric results) [facility]) F4 - Cirrhosis Steatosis Score 0.77 0.00-0.30 Above high normal [facility]) Steatosis Grade Laboratory test result Normal (a pplies to non-numeric results) [facility]) S3 - Marked or Severe Steatosis Lane Score 0.50 Above high normal [facility] ([facility]) Lane Grade Laboratory test result Normal (applies to non-n umeric results) [facility]) N1 - Borderline or probable LANE Height 70 in Normal (applies to non-numeric resul ts) [facility]) Weight 107 LBS Normal (applies to non-numeric resul ts) [facility]) Alpha 2-Macroglobulins,QN 188 mg/dL 110-276 Normal (applies to non-numeric results) [facility]) Haptoglobin 153 mg/dL 23-355 Normal (applies to non-numeric resu lts) [facility]) Apolipoprotein A-1 92 mg/dL 101-178 Below low normal [facility]) Bilirubin, Total 1.3 mg/dL 0.0-1.2 Above high normal M [facility] ([facility]) GGT 1318 IU/L 0-65 Above high normal [facility] ([facility]) Results confirmed on dilution. Alt (SGPT) P5P 48 IU/L 0-55 Normal (applies to non-numeric r esults) [facility] ([facility]) Ast (Sgot) P5P 151 IU/L 0-40 Above high normal [facility] ([facility]) Cholesterol Total 268 mg/dL 100-199 Above high normal [facility] ([facility]) Triglycerides 187 mg/dL 0-149 Above high normal [facility] ([facility]) Glucose, Serum 100 mg/dL 65-99 Above high normal [facility] ([facility]) Interpretations Laboratory test result Normal (a pplies to non-numeric results) [facility] ([facility]) <content>.</content>
<content>Quanti tative results of 10 biochemicals [...] and a</content>
<content>specificity of 50%(3).</content>
<content>.</content>
<content></content> Fibrosis Scoring Laboratory test result Normal ( applies to non-numeric results) [facility] ([facility], ) <content>.</content>
<content><0.21 = Stage F0 - [...]
<content>>0.74 = Stage F4 - Cirrhosis</content>
<content></content> Steatosis Grading Laboratory test result Normal (applies to non-numeric results) [facility] ([facility], ) <content>.</content>
<content>< 0.30 = S0 - No Steatosis</content>
<content>0.30 to 0.38 = S0 - S1</content>
<content>0.38 to 0.48 = S1 - Minimal Steatosis</content>
<content>0.48 to 0.57 = S1 - S2</content>
<content>0.57 to 0.67 = S2 - Moderate Steatosis</content>
<content>0.67 to 0.69 = S2 - S3</content>
<content>> 0.69 = S3 - Marked or Severe Steatosis</content>
<content></content> Lane Scoring Laboratory test result Normal (applies to non -numeric results) [facility] ([facility], ) . 0.25 = N0 - Not LANE 0.50 = N1 - Borderline or probable LANE 0.75 = N2 - LANE Limitations Laboratory test result Normal (applies to non- numeric results) [facility] ([facility], ) . LANE FibroSure is recommended for [...] result Normal (applies to non-n umeric results) [facility] ([facility], ) . This test was developed and its performance characteristics determined by [employer]. It has not been cleared or approved [...] fatty liver disease. [facility] 2006; 6:34 doi:10.1186/4892-435R-5-34. ID Date Data Source [id number] 02/14/2020 08:22:00 AM [facility] Name Value Range Interpretation Code Description Data Mai rce(s) Supporting Document(s) Ferritin [Mass/volume] in Serum or Plasma 336 ng/mL 26-388 Normal (applies to non-numeric results) [facility] ([facility]) Ceruloplasmin [Mass/volume] in Serum or Plasma 29.9 mg/dL 1 6.0-31.0 Normal (applies to non-numeric results) [facility]) ID Date Data Source [id number] 02/14/2020 08:22:00 AM EST [facility] ([facility]) Name Value Range Interpretation Code Description Data Mai rce(s) Supporting Document(s) Iron (Fe) 63 ug/dL 65-175 Below low normal [facility] ( [facility]) Total Iron Binding Capacity 215 ug/dL 250-450 Below low normal [facility] ([facility]) Percent Saturation 29.3 % 19.7-50.0 Normal (applies to non-numer ic results) [facility]) ID Date Data Source [id number] 02/14/2020 08:22:00 AM EST [facility] ([facility]) Name Value Range Interpretation Code Description Data Mai rce(s) Supporting Document(s) Liver-Kidney Microsomal [facility] Laboratory test result 0.0-20.0 Normal (applies to non-numeric results) [facility] ([facility]) Negative 0.0 - 20.0 Equivocal 20.1 - 24.9 Positive >24.9 . LKM type 1 antibodies are detected in patients with autoimmune hepatitis type 2 and in up to 8% of patients with chronic HCV infection. Actin IgG Ab [Units/volume] in Serum or Plasma 5 units 0 -19 Normal (applies to non-numeric results) [facility] ([facility]) Negative 0 - 19 Weak positive 20 - 30 Moderate to strong positive >30 . Actin Antibodies are found in 52-85% of patients with autoimmune hepatitis or chronic active hepatitis and in 22% of patients with primary biliary cirrhosis. Mitochondria Ab [Units/volume] in Serum Laboratory test result 0 .0-20.0 Normal (applies to non-numeric results) [facility] ([facility]) Negative 0.0 - 20.0 Equivocal 20.1 - 24.9 Positive >24.9 . Mitochondrial (M2) Antibodies are found in 90-96% of patients with primary biliary cirrhosis. Hepatitis A virus IgG Ab [Units/volume] in Serum Laboratory test result Normal (applies to non-numeric results) [facility]) Performed at: [facility] [address] [id number] Admissions Officer: Amara Zamudio MD, Phone: [phone] Performed at: [facility] [address] [id number] Admissions Officer: Dory Anderson MD, Phone: [phone] Hepatitis B virus core Ab [Presence] in Serum Laboratory test re sult Normal (applies to non-numeric results) [facility] Hepatitis B virus surface Ag [Presence] in Serum or Pl asma by Immunoassay Laboratory test result Normal (applies to non-numeric results) [facility] ([facility]) Hepatitis B virus surface Ab [Units/volume] in Serum Laboratory test result Below low normal [facility] ([facility]) Status of Immunity A nti-HBs Level - Inconsistent with Immunity 0.0 - 9.9 Consistent with Immunity >9.9 Hepatitis C virus Ab [Units/volume] in Serum by Immunoassay 0.2 INDEX Normal (applies to non-numeric results) [facility] ([facility], ) Negative Not infected with HCV, unless recent infection is suspected or other evidence exists to indicate HCV infection. ID Date Data Source [id number] 02/14/2020 08:22:00 AM EST [facility] ([facility]) Name Value Range Interpretation Code Description Data Mai rce(s) Supporting Document(s) Antinuclear Antibodies Direct Laboratory test result Normal (applies to non- numeric results) [facility] ([facility]) ID Date Data Source [id number] 02/14/2020 08:22:00 AM EST [facility] ([facility]) Name Value Range Interpretation Code Description Data Mai rce(s) Supporting Document(s) Ast/Sgot 144 U/L 7-37 Above high normal [facility] ([facility]) Alt/SGPT 50 U/L 12-78 Normal (applies to non-numeric resul ts) [facility] ([facility]) Alkaline Phosphatase 210 U/L 45-117 Above high normal [facility] ([facility]) Bilirubin,Total 1.6 mg/dL 0.2-1.0 Above high normal [facility] ([facility]) Albumin 3.1 GM/DL 3.2-5.2 Below low normal [facility] Total Protein 7.1 GM/DL 6.4-8.2 Normal (applies to non-numeric re sults) [facility] ([facility]) Bilirubin,Direct 1.0 mg/dL 0.0-0.2 Above high normal M [facility] ([facility]) Albumin/Globulin Ratio 0.8 Normal (applies to non-n umeric results) [facility] ([facility]) Procedure Social History Code Duration Value Status Description Data Source(s ) Smoking 12/07/2020 12:00:00 AM EDT Never Smoker completed Never S kush eCW1 ([facility]) Smoking 07/18/2020 12:00:00 AM EDT Non Smoker completed Non Smoke r [facility] ([facility], ) Smoking 06/22/2020 12:00:00 AM EDT Never Smoker completed Never S moker eCW1 ([facility]) Smoking 06/22/2020 12:00:00 AM EDT Never Smoker completed Never S moker eCW1 ([facility]) Vital Signs ID Date Data Source UNK Name Value Range Interpretation Code Description Data Source(s) Body weight 203 [lb_av] 203 [lb_av] eCW1 ([facility]) Body height 67.5 [in_i] 67.5 [in_i] eCW1 ([facility]) Body mass index (BMI) [Ratio] 31.32 kg/m2 31.32 kg/m2 eCW1 ([facility]) Heart rate 107 /min 107 /min eCW1 ([facility]) Respiratory rate 18 /min 18 /min eCW1 ([facility]) Body temperature 98 [degF] 98 [degF] eCW1 ([facility]) Systolic blood pressure 124 mm[Hg] 124 mm[Hg] e CW1 ([facility]) Diastolic blood pressure 80 mm[Hg] 80 mm[Hg] eCW1 ([facility]) Body temperature 96.2 [degF] 96.2 [degF] [facility] ([facility]) Body surface area Derived from formula 2.13 m2 2.13 m2 [facility] ([facility], ) Systolic blood pressure 136 mm[Hg] 136 mm[Hg] M [facility] ([facility]) Diastolic blood pressure 80 mm[Hg] 80 mm[Hg] [facility] ([facility], ) Body height 70 [in_i] 70 [in_i] [facility] ([facility]) 5'10" Body weight 210.00 [lb_av] 210.00 [lb_av] MEDEN T ([facility], ) Body mass index (BMI) [Ratio] 30.1 kg/m2 30.1 k g/m2 [facility] ([facility]) [place]rum[place] body weight 166 [lb_av] 166 [lb_av] [facility] T ([facility]) Body weight 95.256 kg 95.256 kg [facility] ([facility]) Systolic blood pressure 138 mm[Hg] 138 mm[Hg] [facility] Diastolic blood pressure 74 mm[Hg] 74 mm[Hg] [facility] ([facility]) Body height 70 [in_i] 70 [in_i] [facility] ([facility]) 5'10" Body weight 234.00 [lb_av] 234.00 [lb_av] [facility]EN T ([facility]) Body mass index (BMI) [Ratio] 33.6 kg/m2 33.6 k g/m2 [facility] ([facility]) [place] body weight 166 [lb_av] 166 [lb_av] [facility] T ([facility]) Body weight 106.142 kg 106.142 kg [facility] ([facility]) Body surface area Derived from formula 2.23 m2 2.23 m2 [facility] ([facility]) Body temperature 98.3 [degF] 98.3 [degF] [facility] ([facility]) Body weight 101.153 kg 101.153 kg [facility] ([facility]) Body temperature 98.3 [degF] 98.3 [degF] [facility] ([facility]) Body height 70 [in_i] 70 [in_i] [facility] ([facility]) 5'10" Body weight 223.00 [lb_av] 223.00 [lb_av] [facility] T ([facility]) Body mass index (BMI) [Ratio] 32.0 kg/m2 32.0 k g/m2 [facility] ([facility]) [place] body weight 166 [lb_av] 166 [lb_av] [facility] T ([facility]) Body weight 101.153 kg 101.153 kg [facility] ([facility]) Body surface area Derived from formula 2.19 m2 2.19 m2 [facility] ([facility]) Body height 70 [in_i] 70 [in_i] [facility] ([facility]) 5'10" Body weight 223.00 [lb_av] 223.00 [lb_av] [facility] T ([facility]) Body mass index (BMI) [Ratio] 32.0 kg/m2 32.0 k g/m2 [facility] ([facility]) [place] body weight 166 [lb_av] 166 [lb_av] [facility] T ([facility]) Body surface area Derived from formula 2.19 m2 2.19 m2 [facility] ([facility]) Body height 70 [in_i] 70 [in_i] [facility] ([facility]) 5'10" Body weight 220.00 [lb_av] 220.00 [lb_av] [facility] T ([facility]) Body mass index (BMI) [Ratio] 31.6 kg/m2 31.6 k g/m2 [facility] ([facility]) [place] body weight 166 [lb_av] 166 [lb_av] [facility] T ([facility]) Body weight 99.792 kg 99.792 kg [facility] ([facility]) Body surface area Derived from formula 2.17 m2 2.17 m2 [facility] ([facility]) Body height 70 [in_i] 70 [in_i] [facility] ([facility]) 5'10" Body weight 220.00 [lb_av] 220.00 [lb_av] [facility] T ([facility]) Body mass index (BMI) [Ratio] 31.6 kg/m2 31.6 k g/m2 [facility] ([facility]) [place] body weight 166 [lb_av] 166 [lb_av] [facility] T ([facility]) Body weight 99.792 kg 99.792 [facility] Body surface area Derived from formula 2.17 m2 2.17 m2 [facility] ([facility]) Systolic blood pressure 126 mm[Hg] 126 mm[Hg] [facility] ([facility]) Diastolic blood pressure 66 mm[Hg] 66 mm[Hg] [facility] ([facility]) Systolic blood pressure 126 mm[Hg] 126 mm[Hg] [facility] ([facility]) Diastolic blood pressure 70 mm[Hg] 70 mm[Hg] [facility] ([facility]) Body height 70 [in_i] 70 [in_i] [facility] ([facility]) 5'10" Body weight 244.00 [lb_av] 244.00 [lb_av] [facility] Body mass index (BMI) [Ratio] 35.0 kg/m2 35.0 k g/m2 [facility] ([facility]) [place] body weight 166 [lb_av] 166 [lb_av] [facility] Body weight 110.678 kg 110.678 kg [facility] ([facility]) Body surface area Derived from formula 2.27 m2 2.27 m2 [facility] ([facility]) Patient Treatment Plan of Care Planned Activity Planned Date Details Description Data Source (s) Azithromycin 250 MG Oral Tablet 12/06/2020 12:00:00 AM EDT eCW1 ([facility])
--- OUTSIDE RECORDS SUMMARY | 2020-12-20 15:36 | CCD ---
Author Author [facility] Organization [facility] Address Unknown Phone Unavailable Care Team Providers Care Kitchen Steward/Stewardess Name Role Phone Caprice Ruiz Unavailable PROBLEMS Type Condition ICD9-CM Code LCX50-IM Code Onset Dates Condition S tatus W/U Status Risk SNOMED Code Notes Problem Mixed hyperlipidemia E78.2 Active confirmed 296864529 Problem Morbid obesity due to excess calories E66.01 Ac tive confirmed 243549525 Problem Annual physical exam Z00.00 Active confirmed 92455933 Problem Other chronic pain G89.29 Active confirmed 8 8672526 Problem Alcoholic cirrhosis of liver without ascites K70.3 0 Active confirmed 437231002 Problem Gastroesophageal reflux disease without esophagitis K21.9 Active confirmed 279325920 Problem Alcohol abuse F10.10 Active confirmed 521875 05 Problem Fatty liver K76.0 Active confirmed 24542963 7 Problem Hypertriglyceridemia E78.1 Active confirmed 462984925 ALLERGIES No Known Allergies ENCOUNTERS from 1972 to 2020-12-11 Encounter Location Date Provider Diagnosis [address] [place] [address] 15 Nov, 2020 Caprice Ruiz Fatty liver K76.0 ; Alcoholic cirrhosis of liver without ascites K70.30 ; Morbid obesity due to excess calories E66.01 ; Encounter for immunization Z23 ; Mixed hyperlipidemia E78.2 ; Alcohol abuse F10.10 ; Gastroesophageal reflux disease without esophagitis K21.9 and Hypertriglyceridemia E78.1 IMMUNIZATIONS Vaccine Route Administration Date Status Influenza 18 yrs & older Flublok IM Intramuscular Dec 07, 2020 Administered TDAP 0.5mL (Boostrix) IM Intramuscular Dec 28, [...] in the past year? Ye s Points 5 Interpretation Positive How often did you have six or more drinks on one occas ion in the past year? Weekly (3 points) How many drinks did you have on a typica l day when you were drinking in the past year? 3 or 4 (1 point) How often did you have a drink containing alcohol in t he past year? Monthly or less (1 point) BMI Care Goal Follow-Up Question Answer Notes Above Normal BMI Follow-Up Dietary management educatio n, guidance, and counseling, Dietary needs education, Exercise promotion: strength training Tobacco Use: Question Answer Notes Are you a: never smoker REASON FOR REFERRAL No Information VITAL SIGNS Weight 203 lbs Nov, Height 67.5 in Nov, BMI 31.32 kg/m2 Nov, Heart Rate 107 /min Nov, Respiratory Rate 18 /min Nov, Temperature 98 degrees Fahrenheit Nov, Oximetry 96 Nov, Blood pressure systolic 124 mm Hg Nov, Blood pressure diastolic 80 mm Hg Nov, MEDICATIONS Medication SIG (Take, Route, Frequency, Duration) Notes Start Da te End Date Status Thiamine HCl 100 MG 1 tablet Oral Daily for 90 day(s) Active Propranolol HCl 10 MG 1 tablet Orally Once a day for 90 day(s) Active Azithromycin 250 MG 2 tablet on the first day, then 1 tablet daily for 4 days Orally Once a day for 5 day(s) Nov, A ctive Omeprazole 40 MG 1 capsule 30 minutes before morning meal Orally Once a day for 90 day(s) Active Aleve 220 MG 2 tablet with food or milk as needed Orally every 12 hrs Not-Taking hydrOXYzine HCl 25 MG 1 tablet as needed orally Daily as needed for 90 day(s) Active Folic Acid 1 MG 1 tablet Oral Daily for 90 days Active Furosemide 40 MG 1 tablet Oral Daily for 90 day(s) Active PROCEDURES from 1972 to 2020-12-11 Procedure Date Ordered Result Body Site Imm: Flublok Quadrivalent 18 years & older 0.5mL IM Influenza 20 13-12-14 N/A RESULTS No Results REASON FOR VISIT 6 month MEDICAL (GENERAL) HISTORY Type Description Date Medical History GERD Medical History hyperlipidemia Medical History morbid obesity Medical History prediabetes 07/11 Medical History alcohol abuse, quit 02/20/2020 Medical History umbilical hernia Medical History Fatty liver, alcoholic cirrhosis - Nick rala Medical History COVID 04/2019 Surgical History left hip cortisone injection 08/15/20 Goals Section No Information Health Concerns No Information MEDICAL EQUIPMENT No Information MENTAL STATUS No Information FUNCTIONAL STATUS No Information ASSESSMENTS Encounter Date Diagnosis Assessment Notes Treatment Notes Treatm ent Clinical Notes Nov, Fatty liver (ICD-10 - K76.0) Nov, Alcoholic cirrhosis of liver without ascites (IC D-10 - K70.30) 10/13 US stable, no masses. scheduled for EGD 12/27. Cont with Lasix and propranolol. Nov, Morbid obesity due to excess calories (ICD-10 - E66.01) Weight is down over 20#, he has stopped drinking and has changed his diet, but he doesn't really feel he has been trying to lose weight. chery endoscopy scheduled. Nov, Encounter for immunization (ICD-10 - Z23) Nov, Mixed hyperlipidemia (ICD-10 - E78.2) BW today. Nov, Alcohol abuse (ICD-10 - F10.10) He quit drinking again in Spring 2020. Nov, Gastroesophageal reflux dise ase without esophagitis (ICD-10 - K21.9) Symptoms stable. Nov, Hypertriglyceridemia (ICD-10 - E78.1) Nov, Other No FH colorectal CA - scheduled for endoscopy. 03/11 EKG SR, no priors. Flu today. 01/08 Tdap. PLAN OF TREATMENT Medication Medication Name Sig Start Date Stop Date Thiamine HCl 100 MG 1 tablet Oral Daily for 90 day(s) hydrOXYzine HCl 25 MG 1 tablet as needed orally Daily as needed for 90 day(s) Propranolol HCl 10 MG 1 tablet Orally Once a day for 90 day(s) Folic Acid 1 MG 1 tablet Oral Daily for 90 days Omeprazole 40 MG 1 capsule 30 minutes before morning meal Orally Once a day for 90 day(s) Furosemide 40 MG 1 tablet Oral Daily for 90 day(s) Treatment Notes Assessment Notes Clinical Notes Alcoholic cirrhosis of liver without ascites 10/13 US s table, no masses. scheduled for EGD 12/27. Cont with Lasix and propranolol. Morbid obesity due to excess calories Weight is down o bebeto 20#, he has stopped drinking and has changed his diet, but he doesn't really feel he has been trying to lose weight. chery endoscopy scheduled. Mixed hyperlipidemia BW today. Alcohol abuse He quit drinking again in Spring 2020. Gastroesophageal reflux disease without esophagitis Symptoms stable. Treatment Notes Test Name Order Date CBC with Differential 2020-12-07 Comprehensive Metabolic Profile (CMP) 2020-12-07 ALPHA FETOPROTEIN TUMOR QUANT 2020-12-07 LIPID PANEL (CARDIAC RISK) 2020-12-07 Future Test Test Name Order Date CBC with Differential [id number] Comprehensive Metabolic Profile (CMP) [id number] HEMOGLOBIN A1c [id number] LIPID PANEL (CARDIAC RISK) [id number] ALPHA FETOPROTEIN TUMOR QUANT [id number] TOTAL IRON BINDING CAPACIT [id number] TSH [id number] Next Appt Details BW today, f/u in 6 m, BW before Reason: Provider Name:Caprice Krista Sara, 2021-06-14 07:15:00 AM, [address], , [place], [address], Insurance Providers Payer Name Payer Address Payer Phone Insured Name Patient Relati onship to Insured Coverage Start Date Coverage End Date [facility] [employer] [address] [address] [facility] [address] [place] [id number]
--- OUTSIDE RECORDS SUMMARY | 2020-12-20 15:36 | CCD | Continuity of Care Document ---
Author Yung Daniels M.D. Organization Unknown Address [address] [facility] [facility], [address] [place] [address] Phone [phone] Care Team Providers Care Online Journalist Name Role Phone Caprice Oliveros R.P.A. AUTM [phone] AUTM Unavailable Problems Description No Information Available Social History Type Date Description Comments Sex Unknown ETOH Use Denies alcohol use Tobacco Use Start: Unknown Non Smoker Recreational Drug Use Denies Drug Use Smoking Status Reviewed: 07/18/20 Non Smoker Allergies and adverse reactions Description No Known Drug Allergies Medications Active Medications SIG Qnty Indications Ordering Provide r Date Folic Acid 1mg Tablets one tablet by mouth every day after meals 90tabs Joseluis Jensen M.D. 04/16/2020 Hydroxyzine HCL 25mg Tablets 1 tablet by mouth in evening for itching. ( can couse some drowsiness). 120tabs Joseluis Jensen M.D. 04/16/2020 Propranolol HCL 10mg Tablets 1 tab by mouth twice daily. hold dose if having dizziness/ light headedness.. 60tabs Joseluis Jensen M.D. 03/27/2020 Furosemide 40mg Tablets take one tablet (40mg) in morning. 60tabs K70.30 Joseluis Jensen M.D. 08/2020 Omeprazole Tablet use as directed Unknown Tylenol 325mg Tablets 1tab qd Unknown Immunizations Description No Information Available Vital Signs Date Vital Result Comment 11/23/2020 3:15pm Body Temperature 96.2 F 11/15/2020 4:13pm BP Systolic 136 mmHg BP Diastolic 80 mmHg Height 70 inches 5'10" Weight 210.00 lb BMI (Body Mass Index) 30.1 kg/m2 [place] Body Weight 166 lb Weight 95.256 kg BSA (Body Surface Area) 2.13 m2 Results Description No Information Available Procedures Date Code Description Status 11/23/2020 62874 Office/Outpatient Established Lo w MDM 20-29 Min Completed 11/15/2020 05979 Office/Outpatient Established Lo w MDM 20-29 Min Completed 09/13/2020 65680 Office/Outpatient Established Lo w MDM 20-29 Min Completed 07/18/2020 28060 Office/Outpatient New Moderate M DM 45-59 Minutes Completed Medical Devices Description No Information Available Encounters Type Date Location Provider Dx Diagnosis Office Visit 11/23/2020 3:30p [facility] Emiliano Yusuf MD 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 K76.6 Portal hypertension K70.30 Alcoholic cirrhosis of liver without ascites I85.10 Secondary esophageal varices without bleeding K74.60 Unspecified cirrhosis of zeeshan er Office Visit 09/13/2020 2:30p [facility]enter[facility] trish Jensen M.D. 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 11/15/2020 K70.30 Alcoholic cirrhosis of liver wit hout ascites Joseluis Jensen M.D. 11/15/2020 I85.10 Secondary esophageal varices wit hout bleeding Joseluis Jensen M.D. 11/15/2020 K74.60 Unspecified cirrhosis of liver C nicolas Jensen M.D. 09/13/2020 K76.6 Portal hypertension Joseluis craven M.D. 09/13/2020 I85.10 Secondary esophageal varices wit hout bleeding Joseluis Jensen M.D. 09/13/2020 K70.30 Alcoholic cirrhosis of liver wit hout ascites Joseluis Jensen M.D. 07/18/2020 M16.32 Osteoarthritis of hip co-occurre nt and due to dysplasia Emiliano Yusuf MD Plan of Treatment Future Appointment(s):* 12/27/2020 2:00 am - Joseluis Jensen M.D. at [facility] 11/23/2020 - Emiliano Yusuf MD* M16.32 Osteoarthritis of hip co-occurrent and due to dysplasia* Comments:* The patient continues to have pain and discomfort in the left hip. The cortisone injection did very well for him. This is started to wear off and he would like to have a repeat cortisone injection as he is not interested in any arthroplasty surgeries at this time.We can continue with conservative treatment. I will order up the injection under fluoroscopic guidance for him. He will be seen for follow-up in 3 months time with repeat x-ray imaging * Follow up:* 3 months with weightbearing AP pelvis x-ray Functional Status Description No Information Available Mental Status Description No Information Available Referrals Description No Information Available
--- OUTSIDE RECORDS SUMMARY | 2020-12-20 15:36 | CCD | Continuity of Care Document ---
Author Author Yung ARELLANO M.D. Organization Unknown Address [address], [address] [place] [address] Phone [phone] Care Team Providers Care Press Supervisor Name Role Phone Caprice Oliveros R.P.A. AUTM [phone] AUTM Unavailable Problems Description No Information Available Social History Type Date Description Comments Sex Unknown ETOH Use Denies alcohol use Tobacco Use Start: Unknown Non Smoker Smoking Status Reviewed: 07/18/20 Non Smoker Allergies, Adverse Reactions, Alerts Description No Known Drug Allergies Medications Active Medications SIG Qnty Indications Ordering Provide r Date Thiamine HCL 100mg Tablets 1 by mouth every day 90takady Arellano M.D. 2020 Folic Acid 1mg Tablets one tablet by mouth every day after meals 90takady Arellano M.D. 04/16/2020 Hydroxyzine HCL 25mg Tablets 1 tablet by mouth in evening for itching. ( can couse some drowsiness). 120tabs Joseluis Arellano M.D. 04/16/2020 Propranolol HCL 10mg Tablets 1 tab by mouth twice daily. hold dose if having dizziness/ light headedness.. 60tabs Joseluis Arellano M.D. 03/27/2020 Furosemide 40mg Tablets take one tablet (40mg) in morning. 60tabs K70.30 Joesluis Arellano M.D. 08/2020 Omeprazole Tablet use as directed Unknown Tylenol 325mg Tablets 1tab qd Unknown Immunizations Description No Information Available Vital Signs Date Vital Result Comment 11/15/2020 4:13pm BP Systolic 136 mmHg BP Diastolic 80 mmHg Height 70 inches 5'10" Weight 210.00 lb BMI (Body Mass Index) 30.1 kg/m2 [place] Body Weight 166 lb Weight 95.256 kg BSA (Body Surface Area) 2.13 m2 09/13/2020 3:14pm BP Systolic 138 mmHg BP Diastolic 74 mmHg Height 70 inches 5'10" Weight 234.00 lb BMI (Body Mass Index) 33.6 kg/m2 [place] Body Weight 166 lb Weight 106.142 kg BSA (Body Surface Area) 2.23 m2 Results Description No Information Available Procedures Date Code Description Status 09/13/2020 67870 Office/Outpatient Established Lo w MDM 20-29 Min Completed 07/18/2020 40322 Office/Outpatient New Moderate M DM 45-59 Minutes Completed Medical Devices Description No Information Available Encounters Type Date Location Provider Dx Diagnosis Office Visit 09/13/2020 2:30p [facility] Gastroenterology [facility] ctice Joseluis Arellano M.D. 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 11/15/2020 K70.30 Alcoholic cirrhosis of liver wit hout ascites Joseluis Arellano M.D. 11/15/2020 I85.10 Secondary esophageal varices wit hout bleeding Joseluis Arellano M.D. 11/15/2020 K74.60 Unspecified cirrhosis of liver C nicolas Arellano M.D. 09/13/2020 K76.6 Portal hypertension Joseluis craven M.D. 09/13/2020 I85.10 Secondary esophageal varices wit hout bleeding Joseluis Arellano M.D. 09/13/2020 K70.30 Alcoholic cirrhosis of liver wit hout ascites Joseluis Arellano M.D. 07/18/2020 M16.32 Osteoarthritis of hip co-occurre nt and due to dysplasia Emiliano Yusuf MD Plan of Treatment 11/15/2020 - Joseluis Chandrala, M.D.* K76.6 Portal hypertension * K70.30 Alcoholic cirrhosis of liver without ascites * I85.10 Secondary esophageal varices without bleeding * K74.60 Unspecified cirrhosis of liver * * Recommendations:* -- Patient is educated about the prior test results and all possible differential diagnosis in detail. All questions are answered. -- Schedule for ultrasound abdomen. -- Will give hydroxyzine for pruritus. -- Will give propranolol for esophageal varices. -- Low Dose diuretics. -- Continue with thiamine and folic acid for now. -- Recommend Hepatitis A and B vaccination at [facility] or PCP clinic as patient is not immune (verify prior vaccination history at PCP clinic). -- Educated about avoiding hepatotoxic medication/over the counter medications and herbal supplements -- Educated about low sodium diet ( <2gm per day). -- Educated about complete alcohol abstinence. -- Patient is educated about the screening Colonoscopy - patient want to think about it and will schedule in the next follow up. -- Return to GI clinic in 3 months for routine follow up. -- Follow up with PMD for routine medical Care and other age appropriate health maintenance. Routine care for Liver cirrhosis: 1) Alcohol cessation/abstinence. Alcohol consumption worsens liver disease even in small quantities when you have underlying cirrhosis. 2) Hepatocellular cancer screening: Twice yearly -- ultrasound and AFP level. 3) Esophageal Variceal screening: At least every 3 years if not taking nonselective beta gurmeet. 4) Vaccination: Hepatitis A, hepatitis B and pneumococcal vaccine if not taken before. Yearly influenza va ccine. 5) Bone health: Bone density every 3 years and measurement of vitamin D level twice yearly. 6) Nutrition: Low sodium ( <2gm/day) diet and high-protein diet ( 1.6 gm/ kg body weight). Patients with encephalopathy, benefit from protein snack in the evening. 7) Medications to avoid: Benzodiazepines, NSAIDs, sedating medications. Use opioids only when absolutely necessary. 8) Tylenol <2gm/day dose is safe in cirrhotic patients who do not consume alcohol. 9) Patient with prior encephalopathy should be on lactulose (with or without rifaximin) and must have 1-2 soft or loose bowel movements daily. Functional Status Description No Information Available Mental Status Description No Information Available Referrals Description No Information Available
--- OUTSIDE RECORDS SUMMARY | 2020-12-20 15:36 | CCD | Continuity of Care Document ---
Author Author Yung CARLSON MD Organization Unknown Address [address] , [facility] [place] [address] Phone [phone] Care Team Providers Care Manager Mutual Fund Name Role Phone Caprice Oliveros R.P.A. AUTM [phone] AUTM Unavailable Problems Description No Information Available [...] lb BMI (Body Mass Index) 30.1 kg/m2 [place] Body Weight 166 lb Weight 95.256 kg BSA (Body Surface Area) 2.13 m2 Results Description No Information Available Procedures Date Code Description Status 11/23/2020 68348 Office/Outpatient Established Lo w MDM 20-29 Min Completed 09/13/2020 36693 Office/Outpatient Established Lo w MDM 20-29 Min Completed 07/18/2020 28460 Office/Outpatient New Moderate M DM 45-59 Minutes Completed Medical Devices Description No Information Available Encounters Type Date Location Provider Dx Diagnosis Office Visit 11/23/2020 3:30p [facility] Emiliano Carlson MD M16.32 Unilateral osteoarth resulting from hip dysplasia, left hip Office Visit 09/13/2020 2:30p [facility] trish Jensen M.D. K76.6 Portal hypertension I85.10 Secondary esophageal varices without bleeding K70.30 Alcoholic cirrhosis of liver without ascites Office Visit 07/18/2020 2:30p [facility] Emiliano Carlson MD M16.32 Unilateral osteoarth resulting from hip dysplasia, left hip Assessments Date Code Description Provider 11/23/2020 M16.32 Osteoarthritis of hip co-occurre nt and due to dysplasia Emiliano Carlson MD 11/15/2020 K76.6 Portal hypertension Joseluis craven [...] co-occurre nt and due to dysplasia Emiliano Carlson MD Plan of Treatment 11/15/2020 - Joseluis Jensen M.D.* K76.6 Portal hypertension * K70.30 Alcoholic [...] Recommend Hepatitis A and B vaccination at [facility] or PCP clinic as patient [...]
--- OUTSIDE RECORDS SUMMARY | 2020-12-20 15:36 | CCD | Continuity of Care Document ---
Author Author Yung ARELLANO M.D. Organization Unknown Address [address], [address] [place] [address] Phone [phone] Care Team Providers Care Welder Production Line Arc Name Role Phone Caprice Ruiz R.P.A. AUTM [phone] AUTM Unavailable Problems Description No Information Available [...] tablet (40mg) in morning. 60tabs K70.30 Joseluis Arellano M.D. 08/2020 Omeprazole Tablet use as directed Unknown Tylenol 325mg Tablets 1tab qd Unknown Immunizations Description No Information Available Vital Signs Date Vital Result Comment 09/13/2020 3:14pm BP Systolic 138 mmHg BP Diastolic 74 mmHg Height 70 inches 5'10" Weight 234.00 lb BMI (Body Mass Index) 33.6 kg/m2 [place] Body Weight 166 lb Weight 106.142 kg BSA (Body Surface Area) 2.23 m2 07/18/2020 2:10pm Body Temperature 98.3 F Height 70 inches 5'10" Weight 223.00 lb BMI (Body Mass Index) 32.0 kg/m2 [place] Body Weight 166 lb Weight 101.153 kg BSA (Body Surface Area) 2.19 m2 Results Description No Information Available Procedures Date Code Description Status 09/13/2020 00008 Office/Outpatient Established Lo w MDM 20-29 Min Completed 07/18/2020 53868 Office/Outpatient New Moderate M DM 45-59 Minutes Completed 04/16/2020 76535 Office/Outpatient Established Mo d MDM 30-39 Min Completed Medical Devices Description No Information Available Encounters Type Date Location Provider Dx Diagnosis Office Visit 09/13/2020 2:30p [facility] Gastroenter[facility] ctice Joseluis Arellano M.D. K76.6 Portal hypertension I85.10 Secondary esophageal varices without bleeding K70.30 Alcoholic cirrhosis of liver without ascites Office Visit 07/18/2020 2:30p [facility] Orthoped[facility] Emiliano Yusuf MD M16.32 Unilateral osteoarth resulting from hip dysplasia, left hip Office Visit 04/16/2020 3:20p [facility] Joseluis wang M.D. K74.60 Unspecified cirrhosis of liver I85.10 Secondary esophageal varices without bleeding K76.6 Portal hypertension L29.8 Other pruritus Assessments Date Code Description Provider 09/13/2020 K76.6 Portal hypertension Joseluis craven M.D. 09/13/2020 I85.10 Secondary esophageal varices wit hout bleeding Joseluis Arellano M.D. 09/13/2020 K70.30 Alcoholic cirrhosis of liver wit hout ascites Joseluis Arellano M.D. 07/18/2020 M16.32 Osteoarthritis of hip co-occurre nt and due to dysplasia Emiliano Yusuf MD 04/16/2020 K74.60 Unspecified cirrhosis of liver C nicolas Arellano M.D. 04/16/2020 I85.10 Secondary esophageal varices wit hout bleeding Joseluis Arellano M.D. 04/16/2020 K76.6 Portal hypertension Joseluis craven M.D. 04/16/2020 L29.8 Other pruritus Joseluis Sanchez ala, M.D. Plan of Treatment Future Appointment(s):* 11/15/2020 3:40 pm - Joseluis Arellano M.D. at [facility] Functional Status Description No Information Available Mental Status Description No Information Available Referrals Description No Information Available
--- OUTSIDE RECORDS SUMMARY | 2020-12-20 15:36 | CCD | Continuity of Care Document ---
Author Author Yung CARLSON MD Organization Unknown Address [address] , [facility] [place] [address] Phone [phone] Care Team Providers Care Associate Professor Of Automation Name Role Phone Caprice Oliveros R.P.A. AUTM [phone] AUTM Unavailable Problems Description No Information Available Social History Type Date Description Comments Sex Unknown ETOH Use Denies alcohol use Tobacco Use Start: Unknown Non Smoker Recreational Drug Use Denies Drug Use Smoking Status Reviewed: 07/18/20 Non Smoker Allergies, [...] lb BMI (Body Mass Index) 30.1 kg/m2 [place] Body Weight 166 lb Weight 95.256 kg BSA (Body Surface Area) 2.13 m2 Results Description No Information Available Procedures Date Code Description Status 09/13/2020 78844 Office/Outpatient Established Lo w MDM 20-29 Min Completed 07/18/2020 00437 Office/Outpatient New Moderate M DM 45-59 Minutes Completed Medical Devices Description No Information Available Encounters Type Date Location Provider Dx Diagnosis Office Visit 09/13/2020 2:30p [facility] Gastroenter[facility] ctice Joseluis Jensen M.D. K76.6 Portal hypertension I85.10 Secondary esophageal varices without bleeding K70.30 Alcoholic cirrhosis of liver without ascites Office Visit 07/18/2020 2:30p [facility] Emiliano Carlson MD M16.32 Unilateral osteoarth [...] dysplasia Emiliano Carlson MD Plan of Treatment No Information Available Functional Status Description No Information Available Mental Status Description No Information Available Referrals Description No Information Available
[2020-12-20] MEDS ORDERED: HYDR-3363 (15:55)
[2020-12-20 19:52] LABS: BASO % 0.4 % (0.0-1.0); EOS % 0.4 % (0.0-3.0); HEMATOCRIT 50.1 % (42.0-52.0); HEMOGLOBIN 17.2 g/dl (13.5-17.5); LYMPH # 2.9 10^3/uL (1.5-5.0); LYMPH % 25.9 % (24.0-44.0); MEAN CORPUSCULAR HEMOGLOBIN 32.5 pg (27.0-33.0); MEAN CORPUSCULAR HGB CONC 34.3 g/dl (32.0-36.5); MEAN CORPUSCULAR VOLUME 94.5 fl (80.0-96.0); MONO % 8.7 % (2.0-8.0); NEUTROPHILS # 7.2 10^3/uL (1.5-8.5); NEUTROPHILS % 64.2 % (36.0-66.0); PLATELET COUNT, AUTOMATED 204 10^3/uL (150-450); WHITE BLOOD COUNT 11.2 10^3/uL (4.0-10.0)
[2020-12-20 19:54] LABS: FREE T4 1.42 NG/DL (0.76-1.46)
[2020-12-20 20:08] LABS: OSMOLALITY SERUM 274 MOSM/KG (275-295); OSMOLALITY URINE 594 MOSM/KG (50-1400)
[2020-12-20 20:21] LABS: CREATININE,RANDOM URINE 79.1 MG/DL; SODIUM,RANDOM URINE < 10 MEQ/L
[2020-12-20 20:34] LABS: APPEARANCE, URINE CLEAR (CLEAR); BACTERIA, URINE AUTO NEGATIVE (NEGATIVE); BILIRUBIN, URINE AUTO NEGATIVE (NEGATIVE); BLOOD, URINE BLOOD NEGATIVE (NEGATIVE); COLOR, URINE YELLOW (YELLOW); GLUCOSE, URINE (UA) AUTO 3+ mg/dL (NEGATIVE); KETONE, URINE AUTO 1+ mg/dL (NEGATIVE); LEUKOCYTE ESTERASE, URINE AUTO NEGATIVE (NEGATIVE); NITRITE, URINE AUTO NEGATIVE (NEGATIVE); PROTEIN, URINE AUTO NEGATIVE (NEGATIVE); RBC, URINE AUTO 0 /HPF (0-3); SPECIFIC GRAVITY URINE AUTO 1.023 (1.002-1.035); SQUAMOUS EPITHELIAL CELL UR AU 0 /HPF (0-6); WBC, URINE AUTO 1 /HPF (0-3)
[2020-12-20] MEDS ORDERED: HumaLOG INSULIN (NovoLOG) PER UNIT SC SCH (21:00)
[2020-12-20] MEDS ORDERED: NS 1,000 ML IV ONE (21:00)
[2020-12-20] MEDS ORDERED: PROPRANOLOL 10 MG TAB PO SCH (21:00)
[2020-12-20] MEDS ORDERED: FOLI1TAB11 PO (21:07)
[2020-12-20] MEDS ORDERED: HYDR-3363 PO (21:07)
[2020-12-20] MEDS ORDERED: HOME MED LIST COMPLETE! XX SCH (21:10)
[2020-12-20] MEDS ORDERED: MAALOX 30 ML SUSP *UDC PO PRN (21:45)
[2020-12-20] MEDS ORDERED: MOM 30ML SUSPENSION UDC PO PRN (21:45)
[2020-12-20 22:46] LABS: HEMOGLOBIN A1c 12.2 %
--- NOTE | 2020-12-20 23:12 | HPEPDOC ---
General Date of Admission Dec 20, 2020 at 19:26 Date of Service: Dec 20, 2020 Attending Physician: ANALISA TIERNEY MD Chief Complaint abnormal blood work History of Present Illness History of present illness: Mr. Blair is a pleasant 50 year old male who presented to the Emergency Department after receiving a call from his doctor today telling him to report to the ED because of low sodium and potassium on recent lab work. He had a 6 month follow up appointment with his PCP on 12/07/20 and was ordered routine blood work which he had drawn earlier this week. His labs came back with a sodium of 128 and a potassium of 2.9. He was advised to go to [facility] drug store, purchase a potassium supplement, and have blood drawn earlier today. His repeat blood work reported a sodium of 124 and potassium of 3.4 as well as a glucose of 366. Mr. Blair reports that he has not felt "any different than usual". He denies dizziness, fatigue, headaches, confusion, or nausea. He is currently thirsty and states he has only had two bottles of water, a cup of coffee, and a protein shake today. He has a history of alcohol abuse and reports that he has not had an alcoholic beverage in over 6 months. He does report having lost 30lbs unintentionally in the last six months and contributes that to cessation of drinking alcohol. 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 Review of systems: General: denies fevers, chills, night sweats, loss of appetite, or fatigue. Admits to 30lb unintentional weight loss in last 6 months HEENT: Denies changes in vision or hearing, difficulty swallowing, or swollen glands Cardiovascular: denies chest pain or palpitations Pulmonary: denies shortness of breath, pain with inspiration, cough, or wheezing Abdomen: denies nausea, vomiting, diarrhea, constipation, blood in urine or stool, coughing up blood. Extremities: denies ankle swelling, loss of sensation, acute muscle weakness, muscle cramps Skin: admits to occasional bruising and flushing of skin Past medical / surgical history: Prediabetes Fatty liver, alcoholic cirrhosis Alcohol abuse (quit in last year) Morbid obesity Hyperlipidemia GERD COVID 04/2019 Umbilical hernia Steroid injections in left hip Family history: Mother: age 70 HTN, atrial fibrillation / Father: age 56 blasphomic lymphoma Social history: Denies tobacco or illicit drug use / History of alcohol abuse (quit in the last year) / Lives in [place] with his Allergies: No known drug allergies Physical examination: Vital Signs Date Time Temp Pulse Resp B/P (MAP) Pulse Ox O2 Delivery O2 Flow Rate FiO2 12/20/20 15:28 97.1 93 18 141/85 (103) 98 Room Air General: A pleasant male sitting in bed in no acute distress. He is pleasant to speak with and converses with me comfortably HEENT: PERRLA, EOMI, mucous membranes appear dry and pink, wide circumference neck, no lymphadenopathy Cardiovascular: regular rate and rhythm, no murmurs rubs or gallops noted Pulmonary: clear to auscultation b/l, no wheezes, rhonchi, or rales Abdomen: obese, soft, positive bowel sounds, non tender, umbilical hernia with dilated veins noted, striae present Extremities: scattered ecchymosis noted on upper and lower extremities, no edema. Skin: Skin appears flushed. Patient denies have excess sun exposure recently. Psych: Alert and oriented x 4 Assessment:Mr. Blair is a pleasant 50 year old male with a past medical history of Prediabetes, Fatty liver, alcoholic cirrhosis, alcohol abuse (quit in last year), morbid obesity, hyperlipidemia, GERD, COVID (04/2019), and an umbilical hernia who presented to the Emergency Department after receiving a call from his doctor today telling him to report to the ED because of low sodium and potassium on recent lab work. He is being admitted for treatment of treatment of electrolyte dyscrasias. Plan: Hypotonic Hyponatremia with hypovolemia -may be secondary to hyperglycemia vs liver cirrhosis vs furosemide -serum osmolality 274 -labs from 12/20/20: Na 124 BG 366, corrected Na for hyperglycemia is: 130 -patient is asymptomatic -patient appears dry on PE -continue to hydrate patient with NS. Patient received 1L NS in ED, continue fluid hydration with NS x 2 bags -ordered repeat serum/ urine osmolality and sodium -repeat BMP for AM -holding furosemide as it wastes Na, K, and Cl. Hypokalemia -Potassium of 3.4 in ED -ordered magnesium -will continue to supplement patient with potassium chloride Unintentional weight loss -patient attributes this to alcohol cessation -this will need to be followed up in an outpatient setting -mild leukocytosis Diabetes Mellitus -A1C is 12.2, newly diagnosed -fasting BG 311 -started sliding scale insulin with hypoglycemic protocol -patient is insulin naive, started him on basal insulin 0.1units/k units -patient will need counseling for diabetes and outpatient follow up. Fatty liver, alcoholic cirrhosis -history of Alcohol abuse (quit in last year) -Umbilical hernia with dilated veins noted -patient follows with Dr. Jensen, has an endoscopy and colonoscopy scheduled for 12/27 -continue propranolol, will hold furosemide until discharge. -AST 115 ALT 150 Overweight -BMI 28 GERD -continue home medications DVT prophylaxis: -continue heparin Disposition: home after at least 2 midnight's stay Home Medications Scheduled Blood Sugar Diagnostic (Advanced Glucose Test Strips) 1 Each Strip, 1 STRIP XX ASDIRECTED Folic Acid (Folic Acid) 1 Mg Tablet, 1 MG PO DAILY, (Reported) Insulin Aspart (Novolog Flexpen) 100 Unit/1 Ml Insuln.pen, 1 UNITS SC ACHS USE DIRECTED BY INSULIN SLIDING SCALE PROVIDED Insulin Glargine,Hum.rec.anlog (Basaglar Kwikpen U-100) 100 Unit/1 Ml Insuln.pen, 5 UNIT SC QHS Omeprazole (Omeprazole) 40 Mg Capsule.dr, 40 MG PO DAILY, (Reported) Potassium Chloride (Klor-Con M20) 20 Meq Tab.er.prt, 1 TAB PO DAILY Propranolol HCl (Propranolol HCl) 10 Mg Tablet, 10 MG PO QHS, (Reported) Thiamine HCl (Vitamin B-1) 100 Mg Tablet, 100 MG PO DAILY, (Reported) Scheduled PRN Hydroxyzine HCl (Hydroxyzine HCl) 25 Mg Tablet, 25 MG PO QHS PRN for INSOMNIA, (Reported) Allergies Coded Allergies: No Known Allergies (Unverified , 12/20/20) A-FIB/CHADSVASC A-FIB History Current/History of A-Fib/PAF?: No Current PO Anticoag Therapy: No Laboratory Data Labs 24H Laboratory Tests 2 12/20/20 19:05: Urine Color YELLOW, Urine Appearance CLEAR, Urine pH 5.0, Urine Specific [place] 1.023, Urine Protein NEGATIVE, Urine Glucose (Auto)(UA) 3+H, Urine Ketones (Auto) 1+H, Urine Blood NEGATIVE, Urine Nitrite NEGATIVE, Urine Bilirubin NEGATIVE, Urine Urobilinogen 4.0H, Urine Leukocyte Esterase (Auto) NEGATIVE, Urine WBC (Auto) 1, Urine RBC (Auto) 0, Urine Hyaline Casts (Auto) 0, Urine Bacteria (Auto) NEGATIVE, Urine Squamous Epithelial Cells 0, Urine Sperm (Auto) 12/20/20 19:12: Immature Granulocyte % (Auto) 0.4, Neutrophils (%) (Auto) 64.2, Lymphocytes (%) (Auto) 25.9, Monocytes (%) (Auto) 8.7H, Eosinophils (%) (Auto) 0.4, Basophils (%) (Auto) 0.4, Neutrophils # (Auto) 7.2, Lymphocytes # (Auto) 2.9, Monocytes # (Auto) 1.0H, Eosinophils # (Auto) 0.0, Basophils # (Auto) 0.0, Nucleated Red Blood Cells % (auto) 0.0, Urine Osmolality 594, Urine Random Creatinine 79.1, Urine Random Sodium < 10, Osmolality 274L, Thyroid Stimulating Hormone (TSH) 1.350, Free Thyroxine 1.42 12/20/20 21:02: Coronavirus (COVID-19)(PCR) NEGATIVE 12/20/20 21:51: Estimated Mean Plasma Glucose 303H, Hemoglobin A1c 12.2 CBC/BMP Laboratory Tests 12/20/20 19:12 Plan / VTE VTE Prophylaxis Ordered?: Yes Attending Note Attending Note TIME OF SERVICE 815PM Mr. Blair is a 50 yr old admitted for mild hyponatremia & new onset DM. - his A1C is 12, he will need to be started on basal / bolus insulin and DM education prior to discharge Rest per 's H&P ANUSHA LOVE DO Dec 20, 2020 23:12 ANALISA TIERNEY MD Dec 21, 2020 01:28
[2020-12-20] MEDS ORDERED: GLUCOSE 4GM CHEW TABLET PO PRN (23:15)
[2020-12-20] MEDS ORDERED: GLUCAGON INJ 1MG VIAL SC PRN (23:15)
[2020-12-20] MEDS ORDERED: DEXTROSE 50% 50 ML SYRINGE IV PRN (23:15)
[2020-12-20 23:33] LABS: ALBUMIN 3.5 GM/DL (3.2-5.2); ALT/SGPT 150 U/L (12-78); BILIRUBIN,TOTAL 2.4 MG/DL (0.2-1.0); BLOOD UREA NITROGEN 9 MG/DL (7-18); CALCIUM LEVEL 9.2 MG/DL (8.5-10.1); CARBON DIOXIDE LEVEL 25 MEQ/L (21-32); CHLORIDE LEVEL 85 MEQ/L (98-107); GLOMERULAR FILTRATION RATE > 60.0 (>60); GLUCOSE, FASTING 311 MG/DL (70-100); POTASSIUM SERUM 3.4 MEQ/L (3.5-5.1); SODIUM LEVEL 128 MEQ/L (136-145); TOTAL PROTEIN 7.7 GM/DL (6.4-8.2)
[2020-12-20] MEDS ORDERED: POTASSIUM CHLORIDE 10MEQ SR TABLET PO ONE (23:50)
[2020-12-21] MEDS ORDERED: hydrOXYzine 25 MG TAB PO PRN (00:15)
[2020-12-21 00:59] VITALS: BP 135/87
[2020-12-21] MEDS: NS 1,000 ML IV SCH ×2 (01:01→05:28)
[2020-12-21 02:36] LABS: OSMOLALITY SERUM 279 MOSM/KG (275-295)
[2020-12-21 02:40] LABS: BLOOD UREA NITROGEN 8 MG/DL (7-18); CALCIUM LEVEL 8.5 MG/DL (8.5-10.1); CARBON DIOXIDE LEVEL 36 MEQ/L (21-32); CHLORIDE LEVEL 87 MEQ/L (98-107); CREATININE FOR GFR 0.72 MG/DL (0.70-1.30); GLOMERULAR FILTRATION RATE > 60.0 (>60); GLUCOSE, FASTING 355 MG/DL (70-100); MAGNESIUM LEVEL 1.9 MG/DL (1.8-2.4); POTASSIUM SERUM 2.7 MEQ/L (3.5-5.1); SODIUM LEVEL 129 MEQ/L (136-145)
[2020-12-21] MEDS ORDERED: KCL 10MEQ/100ML SWI (KRUN) 10 MEQ in IV 1 EA IV ONE (04:30)
[2020-12-21] MEDS ORDERED: POTASSIUM CHLORIDE 10MEQ SR TABLET PO ONE ×2 (04:30→07:30)
--- NOTE | 2020-12-21 04:32 | IPNPDOC ---
Text Note Date of Service The patient was seen on 12/21/20. NOTE #Hypokalemia Plan: replete K & f/u Mag VS,Edison, I+O VS, Edison, I+O 12/21/20 01:50 ANALISA TIERNEY MD Dec 21, 2020 04:32
[2020-12-21 06:18] LABS: HEMATOCRIT 43.9 % (42.0-52.0); MEAN CORPUSCULAR HEMOGLOBIN 32.5 pg (27.0-33.0); MEAN CORPUSCULAR HGB CONC 33.9 g/dl (32.0-36.5); MEAN CORPUSCULAR VOLUME 95.9 fl (80.0-96.0); PLATELET COUNT, AUTOMATED 195 10^3/uL (150-450); RED BLOOD COUNT 4.58 10^6/uL (4.30-6.10); WHITE BLOOD COUNT 8.5 10^3/uL (4.0-10.0)
[2020-12-21 06:27] LABS: HEMOGLOBIN 14.9 g/dl (13.5-17.5)
[2020-12-21 06:46] LABS: ALBUMIN 2.9 GM/DL (3.2-5.2); ALT/SGPT 128 U/L (12-78); BILIRUBIN,TOTAL 1.8 MG/DL (0.2-1.0); BLOOD UREA NITROGEN 6 MG/DL (7-18); CALCIUM LEVEL 8.7 MG/DL (8.5-10.1); CARBON DIOXIDE LEVEL 37 MEQ/L (21-32); CHLORIDE LEVEL 92 MEQ/L (98-107); CREATININE FOR GFR 0.63 MG/DL (0.70-1.30); GLOMERULAR FILTRATION RATE > 60.0 (>60); GLUCOSE, FASTING 206 MG/DL (70-100); POTASSIUM SERUM 2.9 MEQ/L (3.5-5.1); SODIUM LEVEL 132 MEQ/L (136-145); TOTAL PROTEIN 6.4 GM/DL (6.4-8.2)
[2020-12-21] MEDS: HumaLOG INSULIN (NovoLOG) PER UNIT SC SCH ×3 (08:53→19:02)
[2020-12-21] MEDS ORDERED: FUROSEMIDE 40 MG TAB PO SCH (09:00)
[2020-12-21] MEDS ORDERED: OMEPRAZOLE 20 MG CAP PO SCH (09:00)
[2020-12-21] MEDS ORDERED: LEVEMIR (INSULIN DETEMIR) 1 UNITS/0.01ML SC SCH (09:00)
[2020-12-21] MEDS ORDERED: DOCUSATE SODIUM 100MG CAPSULE PO SCH (09:00)
[2020-12-21] MEDS ORDERED: FOLIC ACID 1 MG TAB PO SCH (09:00)
[2020-12-21] MEDS ORDERED: THIAMINE 100 MG TAB PO SCH (09:00)
[2020-12-21] MEDS ORDERED: HEPARIN SOD (PORCINE) 5000UNITS/ML 1ML VIAL/SYRINGE SC SCH (09:00)
[2020-12-21] MEDS ORDERED: POTASSIUM CHLORIDE 10MEQ SR TABLET PO SCH (09:00)
[2020-12-21 14:15] VITALS: BP 109/70
[2020-12-21] MEDS ORDERED: BLOOKIT21 XX (15:37)
[2020-12-21] MEDS ORDERED: PEN1MIS21 SC (15:37)
[2020-12-21] MEDS ORDERED: BASA100I SC (15:37)
[2020-12-21] MEDS ORDERED: GLUC1TES2 XX (15:37)
[2020-12-21] MEDS ORDERED: POTA-141 PO (15:37)
[2020-12-21] MEDS ORDERED: LANC30MI XX (15:37)
[2020-12-21] MEDS ORDERED: NOVOINJ3 SC (15:37)
[2020-12-21] MEDS ORDERED: ALCOPAD25 TOP (15:37)
--- NOTE | 2020-12-21 16:04 | IPNPDOC ---
Text Note Date of Service The patient was seen on 12/21/20. NOTE SUBJECTIVE: -No acute complaints OBJECTIVE: Vitals: see below General: A pleasant male sitting in bed in no acute distress. He is pleasant to speak with and converses with me comfortably HEENT: PERRLA, EOMI, mucous membranes appear dry and pink, wide circumference neck, no lymphadenopathy Cardiovascular: regular rate and rhythm, no murmurs rubs or gallops noted Pulmonary: clear to auscultation b/l, no wheezes, rhonchi, or rales Abdomen: obese, soft, positive bowel sounds, non tender, umbilical hernia with dilated veins noted, striae present Extremities: scattered ecchymosis noted on upper and lower extremities, no edema. Skin: Skin appears flushed. Patient denies have excess sun exposure recently. Psych: Alert and oriented x 4 Assessment: 50 year old M with a past medical history of Prediabetes, Fatty liver, alcoholic liver cirrhosis, alcohol abuse (quit in last year), morbid obesity, hyperlipidemia, GERD and an umbilical hernia who presented to the ED after receiving a call from his doctor today telling him to report to the ED because of low sodium and potassium on recent lab work and was admitted for treatment of electrolyte derangements and new onset DM. Plan: Hypotonic Hyponatremia with hypovolemia i/s/o hypovolemia w/ hyperglycemia: improved -serum osmolality 274 -labs from 12/20/20: Na 124 BG 366, corrected Na for hyperglycemia was: 130 -s/p 3L NS -Daily BMP -holding furosemide Hypokalemia -replete to goal >3.5 -daily BMP Unintentional weight loss i/s/o uncontrolled hyperglycemia with untreated DM -this will need to be followed up in an outpatient setting -mild leukocytosis without evidence of ongoing infection Diabetes Mellitus -A1C is 12.2, newly diagnosed -fasting BG 311 -continue sliding scale insulin with hypoglycemic protocol -patient is insulin naive, started him on basal insulin 0.1units/kg units, currently 5u -Ordered diabetes counseling Fatty liver, alcoholic cirrhosis -history of Alcohol abuse (quit in last year) -Umbilical hernia with dilated veins noted -patient follows with Dr. Jensen, has an endoscopy and colonoscopy scheduled for 12/27 -continue propranolol, will hold furosemide until euvolemic -AST 115 ALT 150 Obesity -BMI 28 GERD -continue home medications DVT prophylaxis: -continue heparin Dispo: eager to get home today, rechecking BMP if K is wnl, will dc home if K is wnl, with 20meqK daily, lantus 5mg QHS (pen) and novolog ACHS per SSI (pen). VS,Fishbone, I+O VS, Fishbone, I+O Laboratory Tests 12/20/20 19:12 12/21/20 01:50 12/21/20 05:51 Vital Signs Date Time Temp Pulse Resp B/P (MAP) Pulse Ox O2 Delivery O2 Flow Rate FiO2 12/21/20 05:40 72 17 127/82 (97) 96 Room Air 12/20/20 15:28 97.1 CLARENCE BRADFORD MD Dec 21, 2020 08:00
[2020-12-21 16:29] LABS: BLOOD UREA NITROGEN 9 MG/DL (7-18); CALCIUM LEVEL 8.9 MG/DL (8.5-10.1); CARBON DIOXIDE LEVEL 31 MEQ/L (21-32); CHLORIDE LEVEL 97 MEQ/L (98-107); CREATININE FOR GFR 0.68 MG/DL (0.70-1.30); GLOMERULAR FILTRATION RATE > 60.0 (>60); GLUCOSE, FASTING 203 MG/DL (70-100); POTASSIUM SERUM 3.9 MEQ/L (3.5-5.1); SODIUM LEVEL 133 MEQ/L (136-145)
--- NOTE | 2020-12-21 17:59 | DS.PDOC ---
Discharge Summary General Date of Admission Dec 20, 2020 at 19:26 Date of Discharge 12/21/2020 Attending Physician: CLARENCE BRADFORD MD Discharge Summary PROCEDURES PERFORMED DURING STAY: None ADMITTING DIAGNOSES: Hypokalemia New onset DM DISCHARGE DIAGNOSES: Hypokalemia New onset DM Hyponatremia Fatty liver, alcoholic cirrhosis History of alcohol abuse (quit in last year) Morbid obesity Hyperlipidemia GERD COVID 04/2019 Umbilical hernia COMPLICATIONS/CHIEF COMPLAINT: Diabetes Mellitus New Onset, Hyponatremia. HISTORY OF PRESENT ILLNESS: 50 year old M who presented to the Emergency Department after receiving a call from his doctor telling him to report to the ED because of low sodium and potassium on recent lab work. He had a 6 month follow up appointment with his PCP on 12/07/20 and was ordered routine blood work which he had drawn earlier this week. His labs came back with a sodium of 128 and a potassium of 2.9. He was advised to go to [facility] store, purchase a potassium supplement, and had follow up blood work. His repeat blood work reported a sodium of 124 and potassium of 3.4 as well as a glucose of 366. HOSPITAL COURSE: On arrival to the ED he reported feeling well without any physical complaints and was here only because his doctor recommended him to present. He denied dizziness, fatigue, headaches, confusion, or nausea, polyuria or polydipsia. In the ED the patient was found to have a BG of 311, a Na of 128 and potassium of 3.4. Serum osmolality is 274. He was given 1L of NS. a1c was ultimately 12.2, and he was started on levemir 5u daily and SSI. He got some IVF with NS with resolution of hyponatremia and hypokalemia resolved with repletion and holding of lasix. He is now being discharged home on an increased dose of K supp lementation to 20meq daily, 5u lantus night and SSI novology pen for ACHS use with instruction for SSI. 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 He is to see his PCP within 7d of discharge. He will see his GI as scheduled next week where there will discuss continuation of lasix and appropriate K supplementation if it is restarted. DISCHARGE MEDICATIONS: Please see below. ALLERGIES: Please see below. PHYSICAL EXAMINATION ON DISCHARGE: VITAL SIGNS: Please see below. General: A pleasant male sitting in bed in no acute distress. He is pleasant to speak with and converses with me comfortably HEENT: PERRLA, EOMI, mucous membranes appear dry and pink, wide circumference neck, no lymphadenopathy Cardiovascular: regular rate and rhythm, no murmurs rubs or gallops noted Pulmonary: clear to auscultation b/l, no wheezes, rhonchi, or rales Abdomen: obese, soft, positive bowel sounds, non tender, umbilical hernia with dilated veins noted, striae present Extremities: scattered ecchymosis noted on upper and lower extremities, no edema. Skin: Skin appears flushed. Patient denies have excess sun exposure recently. Psych: Alert and oriented x 4 LABORATORY DATA: Please see below. IMAGING: None PROGNOSIS: None ACTIVITY: As tolerated DIET: consistent carb DISCHARGE PLAN: home with lantus, ACHS SSI with novolog, K 20meq with close PCP follow up. DISPOSITION: Home DISCHARGE INSTRUCTIONS: home with lantus, ACHS SSI with novolog, K 20meq with close PCP follow up. ITEMS TO FOLLOWUP ON ON OUTPATIENT: new diagnosis of DM hypokalemia liver cirrhosis DISCHARGE CONDITION: Stable TIME SPENT ON DISCHARGE: 50 minutes. Vital Signs/I&Os Vital Signs Date Time Temp Pulse Resp B/P (MAP) Pulse Ox O2 Delivery O2 Flow Rate FiO2 12/21/20 05:40 72 17 127/82 (97) 96 Room Air 12/20/20 15:28 97.1 Laboratory Data Labs 24H Laboratory Tests 2 12/20/20 19:05: Urine Color YELLOW, Urine Appearance CLEAR, Urine pH 5.0, Urine Specific [place] 1.023, Urine Protein NEGATIVE, Urine Glucose (Auto)(UA) 3+H, Urine Ketones (Auto) 1+H, Urine Blood NEGATIVE, Urine Nitrite NEGATIVE, Urine Bilirubin NEGATIVE, Urine Urobilinogen 4.0H, Urine Leukocyte Esterase (Auto) NEGATIVE, Urine WBC (Auto) 1, Urine RBC (Auto) 0, Urine Hyaline Casts (Auto) 0, Urine Bacteria (Auto) NEGATIVE, Urine Squamous Epithelial Cells 0, Urine Sperm (Auto) 12/20/20 19:12: Immature Granulocyte % (Auto) 0.4, Neutrophils (%) (Auto) 64.2, Lymphocytes (%) (Auto) 25.9, Monocytes (%) (Auto) 8.7H, Eosinophils (%) (Auto) 0.4, Basophils (%) (Auto) 0.4, Neutrophils # (Auto) 7.2, Lymphocytes # (Auto) 2.9, Monocytes # (Auto) 1.0H, Eosinophils # (Auto) 0.0, Basophils # (Auto) 0.0, Nucleated Red Blood Cells % (auto) 0.0, Urine Osmolality 594, Urine Random Creatinine 79.1, Urine Random Sodium < 10, Anion Gap 18H, Glomerular Filtration Rate > 60.0, Osmolality 274L, Calcium Level 9.2, Total Bilirubin 2.4H, Aspartate Amino Transf (AST/SGOT) 115H, Alanine Aminotransferase (ALT/SGPT) 150H, Alkaline Phosphatase 254H, Total Protein 7.7, Albumin 3.5, Albumin/Globulin Ratio 0.8, Thyroid Stimulating Hormone (TSH) 1.350, Free Thyroxine 1.42 12/20/20 21:02: Coronavirus (COVID-19)(PCR) NEGATIVE 12/20/20 21:51: Estimated Mean Plasma Glucose 303H, Hemoglobin A1c 12.2 12/21/20 00:48: Bedside Glucose (Misc Panel) 399H 12/21/20 01:50: Anion Gap 6L, Glomerular Filtration Rate > 60.0, Osmolality 279, Calcium Level 8.5, Magnesium Level 1.9 12/21/20 02:37: Bedside Glucose (Misc Panel) 294H 12/21/20 05:51: Anion Gap 3L, Glomerular Filtration Rate > 60.0, Calcium Level 8.7, Magnesium Level 2.0, Nucleated Red Blood Cells % (auto) 0.0, Total Bilirubin 1.8H, Aspartate Amino Transf (AST/SGOT) 107H, Alanine Aminotransferase (ALT/SGPT) 128H, Alkaline Phosphatase 215H, Total Protein 6.4, Albumin 2.9L, Albumin/Globulin Ratio 0.8 12/21/20 07:32: Bedside Glucose (Misc Panel) 223H 12/21/20 12:18: Bedside Glucose (Misc Panel) 221H 12/21/20 15:48: Anion Gap 5L, Glomerular Filtration Rate > 60.0, Calcium Level 8.9 12/21/20 16:55: Bedside Glucose (Misc Panel) 196H 12/21/20 16:56: Bedside Glucose (Misc Panel) 193H CBC/BMP Laboratory Tests 12/20/20 19:12 12/21/20 01:50 12/21/20 05:51 12/21/20 15:48 FSBS Laboratory Tests Test 12/21/20 00:48 12/21/20 02:37 12/21/20 07:32 12/21/20 12:18 Range/Units Bedside Glucose (Misc Panel) 399 294 223 221 70-105 MG/DL Test 12/21/20 16:55 12/21/20 16:56 Range/Units Bedside Glucose (Misc Panel) 196 193 70-105 MG/DL Discharge Medications Scheduled Blood Sugar Diagnostic (Advanced Glucose Test Strips) 1 Each Strip, 1 STRIP XX ASDIRECTED Folic Acid (Folic Acid) 1 Mg Tablet, 1 MG PO DAILY, (Reported) Insulin Aspart (Novolog Flexpen) 100 Unit/1 Ml Insuln.pen, 1 UNITS SC ACHS USE DIRECTED BY INSULIN SLIDING SCALE PROVIDED Insulin Glargine,Hum.rec.anlog (Basaglar Kwikpen U-100) 100 Unit/1 Ml Insuln.pen, 5 UNIT SC QHS Omeprazole (Omeprazole) 40 Mg Capsule.dr, 40 MG PO DAILY, (Reported) Potassium Chloride (Klor-Con M20) 20 Meq Tab.er.prt, 1 TAB PO DAILY Propranolol HCl (Propranolol HCl) 10 Mg Tablet, 10 MG PO QHS, (Reported) Thiamine HCl (Vitamin B-1) 100 Mg Tablet, 100 MG PO DAILY, (Reported) Scheduled PRN Hydroxyzine HCl (Hydroxyzine HCl) 25 Mg Tablet, 25 MG PO QHS PRN for INSOMNIA, (Reported) Allergies Coded Allergies: No Known Allergies (Unverified , 12/20/20) CLARENCE BRADFORD MD Dec 21, 2020 17:59
[2020-12-22] MEDS ORDERED: POTASSIUM CHLORIDE 10MEQ SR TABLET PO SCH (09:00)
== END 2020-12-21 20:38 | disposition home or self-care (01) | DRG 425 ==
LOC: M ED 15:27 → UNDOADMOB 15:28 → M ED INP 15:28 → ENRESERV 12-21 12:59 → M MSPAV 12-21 14:14
PROVIDERS: ADMIT Internal Medicine; ATTEND Internal Medicine
DX: E87.6 Hypokalemia (principal); E11.65 Type 2 diabetes mellitus with hyperglycemia; K70.30 Alcoholic cirrhosis of liver without ascites; E87.1 Hypo-osmolality and hyponatremia; E78.5 Hyperlipidemia, unspecified; F10.11 Alcohol abuse, in remission; K42.9 Umbilical hernia without obstruction or gangrene; R63.4 Abnormal weight loss; Z79.899 Other long term (current) drug therapy; Z20.822 Contact with and (suspected) exposure to COVID-19; Z86.16 Personal history of COVID-19

== ENCOUNTER → 2020-12-20 | Outpatient (REF) | payer BC ==
[~2020-12-20] MED LIST changes: +ALCOPAD25 TOP; +B-1100TA2 PO; +BASA100I SC; +BLOOKIT21 XX; +FOLI1TAB11 PO; +GLUC1TES2 XX; +HYDR-3363; +HYDR-3363 PO; +LANC30MI XX; +NOVOINJ3 SC; +OMEP40CA4 PO; +PEN1MIS21 SC; +POTA-136 PO; +POTA-141 PO; +PROP10TA56 PO
[2020-12-20 13:11] LABS: BLOOD UREA NITROGEN 12 MG/DL (7-18); CALCIUM LEVEL 9.7 MG/DL (8.5-10.1); CARBON DIOXIDE LEVEL 37 MEQ/L (21-32); CHLORIDE LEVEL 79 MEQ/L (98-107); CREATININE FOR GFR 0.75 MG/DL (0.70-1.30); GLOMERULAR FILTRATION RATE > 60.0 (>60); GLUCOSE, FASTING 366 MG/DL (70-100); POTASSIUM SERUM 3.4 MEQ/L (3.5-5.1); SODIUM LEVEL 124 MEQ/L (136-145)
== END ==
LOC: M SFHCADAM 11:11
PROVIDERS: ATTEND Physician Assistant Medical
DX: E87.6 Hypokalemia (principal)

== ENCOUNTER → 2020-12-22 | Outpatient (CLI) | payer BC ==
[~2020-12-22] MED LIST changes: +ALCOPAD25 TOP; +BASA100I SC; +BLOOKIT21 XX; +GLUC1TES2 XX; +HYDR-3363; +HYDR-3363 PO; +LANC30MI XX; +NOVOINJ3 SC; +PEN1MIS21 SC; +POTA-141 PO
== END ==
LOC: M LABSMTC 09:03
PROVIDERS: ATTEND Anesthesiology
DX: Z01.818 Encounter for other preprocedural examination (principal); Z20.828 Contact with and (suspected) exposure to other viral communicable diseases

== ENCOUNTER 2020-12-27 10:53 | Day surgery (SDC) | payer BC ==
[~2020-12-27] VITALS: Ht 177.8 cm; Wt 90.6 kg
[~2020-12-27 10:53] MED LIST changes: +LIDOCAINE 2% 100MG/5ML SDV (FOR ANES.) As Ordered ONE; +NS 1,000 ML IV ONE; +propofoL 200 MG/20 ML VIAL As Ordered ONE
--- OUTSIDE RECORDS SUMMARY | 2020-12-27 10:57 | CCD ---
Author Author [facility] Organization [facility] Address Unknown Phone Unavailable Care Team Providers Care Director Home Health Name Role Phone Caprice Ruiz Unavailable PROBLEMS Type Condition ICD9-CM Code [id number] Code Onset Dates Condition S tatus W/U Status Risk SNOMED Code Notes Problem Mixed hyperlipidemia E78.2 Active confirmed 344207078 Problem Morbid obesity due to excess calories E66.01 Ac tive confirmed 371467375 Problem Annual physical exam Z00.00 Active confirmed 73456699 Problem Other chronic pain G89.29 Active confirmed 8 2561160 Problem Alcoholic cirrhosis of liver without ascites K70.3 0 Active confirmed 950162075 Problem Gastroesophageal reflux disease without esophagitis K21.9 Active confirmed 985366808 Problem Alcohol abuse F10.10 Active confirmed 477134 05 Problem Fatty liver K76.0 Active confirmed 30054993 7 Problem Hypertriglyceridemia E78.1 Active confirmed 457175295 ALLERGIES No Known Allergies ENCOUNTERS from 1972 to 2020-12-20 Encounter Location Date Provider Diagnosis [address] [place] [address] Nov, Caprice Ruiz Hypokalemia E87.6 IMMUNIZATIONS Vaccine Route Administration Date Status Influenza [...] Notes Start Da te End Date Status hydrOXYzine HCl 25 MG 1 tablet as needed orally Daily as needed for 90 day(s) Active Omeprazole 40 MG 1 capsule 30 minutes before morning meal Orally Once a day for 90 day(s) Active Azithromycin 250 MG 2 tablet on the first day, then 1 tablet daily for 4 days Orally Once a day for 5 day(s) Nov, A ctive Folic Acid 1 MG 1 tablet Oral Daily for 90 days Active Furosemide 40 MG 1 tablet Oral Daily for 90 day(s) Active Thiamine HCl 100 MG 1 tablet Oral Daily for 90 day(s) Active Klor-Con M10 10 MEQ 2 tablets daily x3 days, the n 1 tablet Orally Once a day for 30 Days Nov, Active Aleve 220 MG 2 tablet with food or milk as needed Orally every 12 hrs Not-Taking Propranolol HCl 10 MG 1 tablet Orally Once a day for 90 day(s) Active PROCEDURES No Information RESULTS No Results REASON FOR VISIT lab MEDICAL (GENERAL) HISTORY Type Description Date Medical [...] Treatment Notes Treatm ent Clinical Notes Nov, Hypokalemia (ICD-10 - E87.6) PLAN OF TREATMENT Medication Medication Name Sig Start Date Stop Date hydrOXYzine HCl 25 MG 1 tablet as needed orally Daily as needed for 90 day(s) Klor-Con M10 10 MEQ 2 tablets daily x3 days, the n 1 tablet Orally Once a day for 30 Days Nov, Folic Acid 1 MG 1 tablet Oral Daily for 90 days Thiamine HCl 100 MG 1 tablet Oral Daily for 90 day(s) Furosemide 40 MG 1 tablet Oral Daily for 90 day(s) Propranolol HCl 10 MG 1 tablet Orally Once a day for 90 day(s) Omeprazole 40 MG 1 capsule 30 minutes before morning meal Orally Once a day for 90 day(s) Treatment Notes Test Name Order Date Potassium Serum Level 2020-12-20 Next Appt Details Provider Name:Caprice Krista Sara, 2021-06-14 07:15:00 AM, [id number], , [place], [address], Insurance Providers Payer Name Payer Address Payer Phone Insured Name Patient Relati onship to Insured Coverage Start Date Coverage End Date [facility] FED[employer]AL [address] [address] [facility] [id number] [place] [id number]
--- OUTSIDE RECORDS SUMMARY | 2020-12-27 10:57 | CCD ---
Author Author [facility] Organization [facility] Address Unknown Phone Unavailable Care Team Providers Care Stake Driver Name Role Phone Emiliano Yusuf MD Unavailable [...] Unavailable Unavailable Flakita ARELLANO MD Unavailable Unavailable Flaktia ARELLANO MD Unavailable Unavailable Flakita ARELLANO MD Unavailable Unavailable Flakita ARELLANO MD Unavailable Unavailable Flakita ARELLANO MD Unavailable Unavailable Flakita ARELLANO MD Unavailable Unavailable Flakita ARELLANO MD Unavailable Unavailable Flakita ARELLANO MD Unavailable Unavailable Flakita ARELLANO MD Unavailable Unavailable KELLYRALAFlakita MD Unavailable Unavailable KELLYRALAFlakita MD Unavailable Unavailable KELLYRALAFlakita MD Unavailable Unavailable KELLYRALAFlakita MD Unavailable Unavailable KELLYRALAFlakita MD Unavailable Unavailable KELLYRALAFlakiat MD Unavailable Unavailable KELLYRALA K E[facility] JERRY [...] is protected by Article 27-F of the [facility] Public Health law. If you continue you may have access to information: Regarding HIV / AIDS; Provided by facilities licensed or operated by the [facility] Office of Mental Health; or Provided by the [facility] Office for People With Developmental Disabilities. If such information is present, then the following [facility] mandated warning applies: This information has [...] law may result in a fine or skilled nursing sentence or both. A general authorization for the release of medical or other information is NOT sufficient authorization for further disc losure. Encounters Encounter Providers Location Date Indications Data Source(s ) Unknown [address] [facility] [address] 12/18/2020 12:00:00 AM EDT [facility]CW1 ([facility]) Outpatient [address] [facility] [address] 12/07/2020 12:00:00 AM EDT eCW1 ([facility]) Unknown [address] [facility] [address] 12/05/2020 12:00:00 AM EDT eCW1 ([facility]) Outpatient Attender: Emiliano Sainz/Weldona/Bernardo/Rein dl 11/23/2020 03:30:00 PM EDT [facility] ([facility]) Outpatient Attender: EH Sainz/Weldona/Ang el/Reindl 11/15/2020 03:40:00 PM EDT [facility] ([facility]) Outpatient Attender: EH Sainz/Weldona/Ang el/Reindl 09/13/2020 02:30:00 PM EDT [facility] ([facility]) Outpatient Attender: Emiliano Sainz/Benjy/Bernardo/Rein dl 07/18/2020 02:30:00 PM EDT [facility] ([facility]) Unknown [address] [facility] [address] 06/26/2020 12:00:00 AM EDT eCW1 ([facility]) Unknown [address] [facility] [address] 06/09/2020 12:00:00 AM EDT eCW1 ([facility]) Unknown [address] [facility] [address] 05/22/2020 12:00:00 AM EDT eCW1 ([facility]) Outpatient Attender: EH Sainz/Benjy/Ang el/Reindl 04/16/2020 02:20:00 PM EST MEDENT ([facility]) Outpatient Attender: EH Sainz/Benjy/Gabe santizo/Reindeloris 03/01/2020 01:10:00 PM EST [facility] ([facility]) Unknown [address] [facility] [address] 12/05/2019 12:00:00 AM EDT eCW1 ([facility]) Immunizations Vaccine Date Status Description Data Source(s) influenza, recombinant, quadrIvalent,injectable, prese rvative free 12/07/2020 08:03:00 AM EDT completed eCW1 ([facility]) influenza, recombinant, quadrIvalent,injectable, prese rvative free 12/07/2020 08:03:00 AM EDT completed eCW1 ([facility]) COVID-19 VACCINE Moderna 07/27/2020 12:00:00 AM EDT completed [facility] Vaccine Series Complete: YESThis Data wa s Submitted to [facility] Via Polimetrix. COVID-19 VACCINE Moderna 06/29/2020 12:00:00 AM EDT completed [facility] Vaccine Series Complete: NOThis Data was Submitted to [facility] Via Polimetrix. Medications Medication Brand Name Start Date Product Form Dose Route Admi nistrative Instructions Pharmacy Instructions Status Indications Reaction Description Data Source(s) 20 mEq 12/22/2020 12:00:00 AM EDT tablet,ER particles/cry stals 14 TAKE ONE TABLET BY MOUTH EVERY DAY TAKE ONE TABLET BY MOUTH EVERY DAY SOLD: 12/22/2020 [facility] BLOOD-GLUCOSE METER 12/21/2020 12:00:00 AM EDT kit 1 DIRECTED DIRECTED SOLD: 12/21/2020 [facility] BLOOD SUGAR DIAGNOSTIC 12/21/2020 12:00:00 AM EDT strip 100 TEST SUGAR DIRECTED UP TO FOUR TIMES A DAY TEST SUGAR DIRECTED UP TO FOUR TIMES A DAY SOLD: 12/21/2020 [facility] ALCOHOL ANTISEPTIC PADS 12/21/2020 12:00:00 AM EDT pads, med icated 100 USE DIRECTED USE DIRECTED SOLD: 12/21/2020 [facility] 3 ML Insulin Glargine 100 UNT/ML Pen Injector [Basagla r] 100 unit/mL (3 mL) INSULIN GLARGINE,HUM.REC.ANLOG 12/21/2020 12:00:00 AM EDT insulin pen 15 INJECT 5 UNITS SUBCUTANEOUSLY AT BEDTIME INJECT 5 UNITS SUBCUTANEOUSLY AT BEDTIME SOLD: 12/21/2020 [facility] 100 unit/mL (3 mL) 12/21/2020 12:00:00 AM EDT insulin pen 15 USE SUBCUTANEOUSLY BEFORE MEALS AND AT BEDTIME BY SLIDING SCALE PROVIDED USE SUBCUTANEOUSLY BEFORE MEALS AND AT BEDTIME BY SLIDING SCALE PROVIDED SOLD: 12/21/2020 [facility] 32 gauge x 5/32" 12/21/2020 12:00:00 AM EDT needle 100 USE DIRECTED WITH NOVOLOG AND BASAGLAR USE DIRECTED WITH NOVOLOG AND BASAGLAR SOLD: 12/21/2020 [facility] 28 gauge 12/21/2020 12:00:00 AM EDT misc 100 USE DIRECTED UP TO FOUR TIMES A DAY USE DIRECTED UP TO FOUR TIMES A DAY SOLD: 12/21/2020 [facility] Klor-Con M10 10 MEQ Klor-Con M10 10 MEQ 12/18/2020 12:00:00 AM EDT active Klor-Con M10 10 MEQ eCW1 ([facility]) 10 mEq 12/18/2020 12:00:00 AM EDT tablet,ER [...] AM EDT active Azithromycin 250 MG eCW1 ([facility]) 250 mg 12/06/2020 12:00:00 AM EDT tablet 6 TAKE TWO TABLETS BY MOUTH AT ONCE ON THE FIRST DAY THEN TAKE ONE DAILY THEREAFTER TAKE TWO TABLETS BY MOUTH AT ONCE ON THE FIRST DAY THEN TAKE ONE DAILY THEREAFTER SOLD: 12/07/2020 [facility] Azithromycin 250 MG Oral Tablet Azithromycin 250 MG 12/06/2020 1 2:00:00 AM EDT active Azithromycin 250 MG eCW1 ([facility]) Azithromycin 250 MG Oral Tablet Azithromycin 250 MG 12/06/2020 1 2:00:00 AM EDT active Azithromycin 250 MG eCW1 ([facility]) 10 mg 06/23/2020 12:00:00 AM EDT tablet [...] EVERY DAY AFTER MEALS SOLD: 04/18/2020 [facility] 25 mg 04/17/2020 12:00:00 AM EST tablet 90 TAKE ONE TABLET BY MOUTH IN THE EVENING FOR ITCHING ( CAN CAUSE SOME DROWSINESS) TAKE ONE TABLET BY MOUTH IN THE EVENING FOR ITCHING ( CAN CAUSE SOME DROWSINESS) SOLD: 04/18/2020 [facility] Folic Acid 1 MG Oral Tablet Folic Acid 04/16/2020 12:00:00 AM EST ORAL active MEDENT ([facility], ) Thiamine 100 MG Oral Tablet Thiamine HCL 04/16/2020 12:00:00 AM EST ORAL active MEDENT ([facility], ) Hydroxyzine Hydrochloride 25 MG Oral Tablet Hydroxyzine HCL 04/16/2020 12:00:00 AM EST ORAL active [facility] ([facility], ) 10 mg 03/28/2020 12:00:00 AM EST tablet 60 TAKE ONE TABLET BY MOUTH TWICE A DAY, HOLD DOSE IF HAVING DIZZINESS OR LIGHT HEADEDNESS TAKE ONE TABLET BY MOUTH TWICE A DAY, HOLD DOSE IF HAVING DIZZINESS OR LIGHT HEADEDNESS SOLD: 03/30/2020 [facility] 10 mg 03/28/2020 12:00:00 AM EST tablet 60 TAKE ONE TABLET BY MOUTH TWICE A DAY, HOLD DOSE IF HAVING DIZZINESS OR LIGHT HEADEDNESS TAKE ONE TABLET BY MOUTH TWICE A DAY, HOLD DOSE IF HAVING DIZZINESS OR LIGHT HEADEDNESS SOLD: 04/29/2020 [facility] 10 mg 03/28/2020 12:00:00 AM EST tablet 60 TAKE ONE TABLET BY MOUTH TWICE A DAY, HOLD DOSE IF HAVING DIZZINESS OR LIGHT HEADEDNESS TAKE ONE TABLET BY MOUTH TWICE A DAY, HOLD DOSE IF HAVING DIZZINESS OR LIGHT HEADEDNESS SOLD: 05/30/2020 [facility] Propranolol Hydrochloride 10 MG Oral Tablet Propranolol HCL 03/27/2020 12:00:00 AM EST ORAL active MEDENT ([facility], ) 40 mg 03/05/2020 12:00:00 AM EST tablet [...] Furosemide 03/01/2020 12:00:00 AM EST active MEDENT ([facility], ) Cephalexin 500 MG Oral Capsule CEPHALEXIN 02/20/2020 12:00:00 AM EST capsule 20 TAKE 1 CAPSULE BY MOUTH EVERY 12 HOURS TAKE 1 CAPSULE BY KALEB TH EVERY 12 HOURS SOLD: 02/20/2020 [facility] Insurance Providers Payer name Policy type / Coverage type Policy ID Covered republican ID Covered republican's relationship to olivia Policy Olivia Plan Information [id number] [place][id number] [place] [id number] [place]/307 [id number] [place] [id number] [place] B [id number] P [id number] [place] 306/[id number] [place] [id number] [place] 306/[id number] [place] [id number] [facility] BCBS B [id number] P [id number] [id number] ANSI-Commercial [id number] ANSI-Commercial [id number] ANSI-Commercial [id number] ANSI-Commercial [id number] [facility] 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 EMPLOYEE PROGRAM [id number] [place]2 [id number] ANSI-Commercial [id number] ANSI-Commercial [id number] ANSI-Commercial [id number] ANSI-Commercial [id number] [facility] [id number] SP [id number] [facility] [id number] SP [id number] SELF PAY 5 UNAVAILABLE 1 UNAVAILA BLE ANSI-Commercial [id number] [facility] [employer]EE PROGRAM [id number] [place]2 [id number] [facility] [employer]EE PROGRAM [id number] [place]2 [id number] Problems, Conditions, and Diagnoses Code Display Name Description Problem Type Effective Dates Data Source(s) K70.30 [id number] Alcoholic cirrhosis of liver without asci quentin Problem 12/07/2020 12:00:00 AM EDT eCW1 ([facility]) G89.29 [id number] Other chronic pain Problem 06/22/2020 12:00: 00 AM EDT eCW1 ([facility]) Surgeries/Procedures Procedure Description Date Indications Data Source(s) Imm: Flublok Quadrivalent 18 years & older 0.5mL IM Influenz a 12/07/2020 12:00:00 AM EDT eCW1 ([facility]) OFFICE OUTPATIENT VISIT 15 MINUTES 11/23/2020 12:00:00 AM EDT MEDENT ([facility]) OFFICE OUTPATIENT VISIT 15 MINUTES 11/15/2020 12:00:00 AM EDT [facility] ([facility]) OFFICE OUTPATIENT VISIT 15 MINUTES 09/13/2020 12:00:00 AM EDT [facility] ([facility]) OFFICE OUTPATIENT NEW 45 MINUTES 07/18/2020 12:00:00 A M EDT [facility] ([facility]) OFFICE OUTPATIENT VISIT 25 MINUTES 04/16/2020 12:00:00 AM EST [facility] ([facility]) Endoscopy Upper GI Biopsy 03/27/2020 12:00:00 AM EST [facility] ([facility]) Results ID Date Data Source [id number] 12/22/2020 09:15:00 AM EDT [facility] Name Value Range Interpretation Code Description Data Mai rce(s) Supporting Document(s) SARS-CoV-2 (COVID-19) RNA [Presence] in Respiratory specimen by TYLOR with probe detection Not Detected [facility] This lab was ordered by [facility] and reported by [employer] ID Date Data Source [id number] 12/20/2020 09:02:00 PM EDT [facility] Name Value Range Interpretation Code Description Data Mai rce(s) Supporting Document(s) SARS coronavirus 2 RNA [Presence] in Res piratory specimen by TYLOR with probe detection NEGATIVE [facility] This lab was ordered by [facility] a nd reported by [facility]. ID Date Data Source [id number] 03/27/2020 12:03:00 PM EST MEDENT ([facility]) Name Value Range Interpretation Code Description Data Mai rce(s) Supporting Document(s) Surgical pathology study Laboratory test result MEDENT ([facility], ) <content>FINAL DIAGNOSIS</content>
< content></content>
<content>Stomach, biopsy:</content>
<content>Gastric mucosa with reactive gastropathy.</content>
<content>No evidence for H. pylori-like organisms on H&E stain.</content>
<content>03/28/20201412</content>
<content></content>
<content>CLINICAL DIAGNOSIS</content>
<content></content>
<content>R/O varices</content>
<content>03/28/2020802</content>
<content></content>
<content>GROSS DIAGNOSIS</content>
<content></content>
<content>Received in formalin labeled "gastric biopsy R/O H. pylori" and consists</content>
<content>of three fragments of martinez tissue 0.3 x 0.2 x 0.2 cm. in aggregate. All</content>
<content>in one.</content>
<content>- SV</content>
<content>03/28/2020802</content>
<content></content>
<content>Signed MARCELLE PETERSON MD 03/28/2020 1601</content>
<content></content> ID Date Data Source [id number] 03/22/2020 02:00:00 PM EST [facility] Name Value Range Interpretation Code Description Data Mai rce(s) Supporting Document(s) SARS coronavirus 2 RNA Not Detected [facility] This lab was ordered by [facility] and reported by [facility]. ID Date Data Source [id number] 03/19/2020 09:58:00 AM EST [facility] ([facility]) Name Value Range Interpretation Code Description Data Mai rce(s) Supporting Document(s) Creatinine [Mass/volume] in Urine 36.1 mg/dL Normal (applies to non-numeric results) [facility] ([facility]) Sodium [Moles/volume] in Urine 54 meq/L N ormal (applies to non-numeric results) [facility] ([facility]) ID Date Data Source [id number] 03/19/2020 09:58:00 AM EST [facility] ([facility]) Name Value Range Interpretation Code Description Data Mai rce(s) Supporting Document(s) Blood Urea Nitrogen 10 mg/dL 7-18 Normal (applies to non-nume partha results) [facility] ([facility]) Glucose, Fasting 92 mg/dL 70-100 Normal (applies to non-numeric results) [facility] ([facility]) Creatinine For GFR 0.83 mg/dL 0.70-1.30 Normal (applies to non -numeric results) [facility] ([facility]) Glomerular Filtration Rate Laboratory test result Normal (applies to non- numeric results) [facility]) <content>Units are mL/min/1.73 m2</content>
<content></content>
<content>Chronic Kidney Disease Staging per NKF:</content>
<content></content>
<content>Stage I & II GFR >=60 Normal to Mildly Decreased</content>
<content>Stage III GFR 30- 59 Moderately Decreased</content>
<content>Stage IV GFR 15-29 Severely Decreased</content>
<content>Stage V GFR <15 Very Little GFR Left</content>
<content>ESRD GFR <15 on PLUG AND MOLD FINISHER</content>
<content></content> Potassium Serum 3.9 meq/L 3.5-5.1 Normal (applies to non-numeric results) [facility] ([facility]) Sodium Level 139 meq/L 136-145 Normal (applies to non-numeric res ults) [facility]) Carbon Dioxide Level 32 meq/L 21-32 Normal (applies to non-num janeth results) [facility] ([facility]) Chloride Level 100 meq/L 98-107 Normal (applies to non-numeric r esults) [facility] ([facility]) Anion Gap 7 meq/L 8-16 Below low normal [facility] ( [facility]) Calcium Level 9.7 mg/dL 8.5-10.1 Normal (applies to non-numeric re sults) [facility]) ID Date Data Source [id number] 03/02/2020 08:42:00 AM EST [facility] ([facility]) Name Value Range Interpretation Code Description Data Mai rce(s) Supporting Document(s) Glucose, Fasting 87 mg/dL 70-100 Normal (applies to non-numeric results) [facility] ([facility]) Blood Urea Nitrogen 6 mg/dL 7-18 Below low normal [facility] ([facility]) Creatinine For GFR 0.73 mg/dL 0.70-1.30 Normal (applies to non -numeric results) [facility] ([facility]) Glomerular Filtration Rate Laboratory test result Normal (applies to non- numeric results) [facility]) <content>Units are mL/min/1.73 m2</content>
<content></content>
<content>Chronic Kidney Disease Staging per NKF:</content>
<content></content>
<content>Stage I & II GFR >=60 Normal to Mildly Decreased</content>
<content>Stage III GFR 30- 59 Moderately Decreased</content>
<content>Stage IV GFR 15-29 Severely Decreased</content>
<content>Stage V GFR <15 Very Little GFR Left</content>
<content>ESRD GFR <15 on PLUG AND MOLD FINISHER</content>
<content></content> Sodium Level 136 meq/L 136-145 Normal (applies to non-numeric res ults) [facility] ([facility]) Potassium Serum 4.8 meq/L 3.5-5.1 Normal (applies to non-numeric results) [facility] ([facility]) Chloride Level 103 meq/L 98-107 Normal (applies to non-numeric r esults) [facility]) Anion Gap 6 meq/L 8-16 Below low normal [facility] ( [facility]) Carbon Dioxide Level 27 meq/L 21-32 Normal (applies to non-num janeth results) [facility] ([facility]) Calcium Level 8.8 mg/dL 8.5-10.1 Normal (applies to non-numeric re sults) [facility]) ID Date Data Source [id number] 03/02/2020 08:42:00 AM EST [facility]) Name Value Range Interpretation Code Description Data Mai rce(s) Supporting Document(s) Inr 1.31 Normal (applies to non-numeric resul ts) [facility] ([facility]) THERAPUTIC HUMAN INR VALUES INDICATIONS NORMAL RANGES PROPHYLAXIS/TREATMENT OF: VENOUS THROMBOSIS 2.0-3.0 PULMONARY EMBOLISM 2.0-3.0 PREVENTION OF SYSTEMIC EMBOLISM FROM: TISSUE HEART VALVES 2.0-3.0 ACUTE MYOCARDIAL INFARCTION 2.0-3.0 VALVULAR HEART DISEASE 2.0-3.0 ATRIAL FIBRILLATION 2.0-3.0 MECHANICAL VALVES(HIGH RISK) 2.5-3.5 RECURRENT MYOCARDIAL INFARCTION 2.5-3.5 Prothrombin Time 16.6 s 12.5-14.3 Above high normal [facility] Partial Thromboplastin Time 38.4 s 24.2-38.5 Norm al (applies to non-numeric results) [facility]) ID Date Data Source [id number] 03/02/2020 08:42:00 AM EST [facility] ([facility]) Name Value Range Interpretation Code Description Data Mai rce(s) Supporting Document(s) White Blood Count 10.3 10 4.0-10.0 Above high normal [facility] ([facility]) Hematocrit 48.0 % 42.0-52.0 Normal (applies to non-numeric resul ts) [facility] ([facility]) Hemoglobin 15.5 g/dL 13.5-17.5 Normal (applies to non-numeric resul ts) [facility] ([facility]) Red Blood Count 4.69 10 4.30-6.10 Normal (applies to non-numeric results) [facility] ([facility]) Mean Corpuscular Volume 102.3 fl 80.0-96.0 Above high normal [facility] ([facility]) Mean Corpuscular Hemoglobin 33.0 pg 27.0-33.0 Norm al (applies to non-numeric results) [facility] ([facility]) Platelet Count, Automated 320 10 150-450 Normal (applies to non-numeric results) [facility] ([facility]) Red Cell Distribution Width 14.6 % 11.5-14.5 Above high normal [facility] Mean Corpuscular HGB Conc 32.3 g/dL 32.0-36.5 Normal (applies to non-numeric results) [facility] ([facility]) Lymph % 15.8 % 24.0-44.0 Below low normal [facility] ( [facility]) Neutrophils % 66.9 % 36.0-66.0 Above high normal [facility] ([facility]) Eos % 7.2 % 0.0-3.0 Above high normal [facility] ([facility]) [place] % 8.5 % 0.0-5.0 Above high normal [facility] ([facility]) Baso % 1.3 % 0.0-1.0 Above high normal [facility] ([facility]) Immature Granulocyte % 0.3 % 0-3.0 Normal (applies to non-n umeric results) [facility] ([facility]) Neutrophils # 6.9 10 1.5-8.5 Normal (applies to non-numeric re sults) [facility] ([facility]) Nucleated Red Blood Cell % 0.0 % 0-0 Normal (applies to n on-numeric results) [facility] ([facility]) Lymph # 1.6 10 1.5-5.0 Normal (applies to non-numeric resul ts) [facility] ([facility]) [place] # 0.9 10 0.0-0.8 Above high normal [facility] ([facility]) Eos # 0.7 10 0.0-0.5 Above high normal [facility] ([facility]) Baso # 0.1 10 0.0-0.2 Normal (applies to non-numeric resul ts) [facility] ([facility]) ID Date Data Source [id number] 02/14/2020 08:22:00 AM EST [facility] ([facility]) Name Value Range Interpretation Code Description Data Mai rce(s) Supporting Document(s) IgA Serum (part of Subclasses) 406 mg/dL 90-386 Above high kalyan l [facility] ([facility]) Igasub2 302.0 mg/dL 73.2-301.2 Above high normal [facility] ([facility]) Igasub3 58.8 mg/dL 13.4-97.9 Normal (applies to non-numeric resul ts) [facility]) ID Date Data Source [id number] 02/14/2020 08:22:00 AM [facility] ([facility]) Name Value Range Interpretation Code Description Data Mai rce(s) Supporting Document(s) Tissue transglutaminase IgA Ab [Units/volume] in Serum Labor atory test result 0-3 Normal (applies to non-numeric results) [facility] ([facility]) Negative 0 - 3 Weak Positive 4 - 10 Positive >10 . Tissue Transglutaminase (tTG) has been identified as the endomysial antigen. Studies have demonstr- ated that endomysial IgA antibodies have over 99% specificity for gluten sensitive enteropathy. ID Date Data Source [id number] 02/14/2020 08:22:00 AM EST [facility] ([facility]) Name Value Range Interpretation Code Description Data Mai rce(s) Supporting Document(s) Fibrosis Score 0.82 0.00-0.21 Above high normal [facility] ([facility]) Fibrosis Stage Laboratory test result Normal (applies to non-numeric results) [facility] ([facility], ) F4 - Cirrhosis Steatosis Score 0.77 0.00-0.30 Above high normal [facility] ([facility]) Steatosis Grade Laboratory test result Normal (a pplies to non-numeric results) [facility] ([facility]) S3 - Marked or Severe Steatosis Lane Score 0.50 Above high normal [facility] Lane Grade Laboratory test result Normal (applies to non-n umeric results) [facility] ([facility]) N1 - Borderline or probable LANE Height 70 in Normal (applies to non-numeric resul ts) [facility] ([facility]) Weight 107 LBS Normal (applies to non-numeric resul ts) [facility]) Alpha 2-Macroglobulins,QN 188 mg/dL 110-276 Normal (applies to non-numeric results) [facility] ([facility]) Haptoglobin 153 mg/dL 23-355 Normal (applies to non-numeric resu lts) [facility] ([facility]) Apolipoprotein A-1 92 mg/dL 101-178 Below low normal [facility] Bilirubin, Total 1.3 mg/dL 0.0-1.2 Above high normal [facility] ([facility]) GGT 1318 IU/L 0-65 Above high normal [facility]) Results confirmed on dilution. Alt (SGPT) P5P 48 IU/L 0-55 Normal (applies to non-numeric r esults) [facility] Ast (Sgot) P5P 151 IU/L 0-40 Above high normal [facility] ([facility]) Cholesterol Total 268 mg/dL 100-199 Above high normal [facility] ([facility]) Triglycerides 187 mg/dL 0-149 Above high normal [facility] ([facility]) Glucose, Serum 100 mg/dL 65-99 Above high normal [facility] ([facility]) Interpretations Laboratory test result Normal (a pplies to non-numeric results) [facility]) <content>.</content>
<content>Quanti tative results of 10 biochemicals [...] result Normal ( applies to non-numeric results) [facility] ) <content>.</content>
<content><0.21 = Stage F0 [...] result Normal (applies to non-numeric results) [facility] ([facility], ) <content>.</content>
<content>< 0.30 = S0 [...] result Normal (applies to non -numeric results) [facility] ([facility]) . 0.25 = N0 - Not LANE 0.50 = N1 - Borderline or probable LANE 0.75 = N2 - LANE Limitations Laboratory test result Normal (applies to non- numeric results) [facility] ([facility]) . LANE FibroSure is recommended for patients [...] result Normal (applies to non-n umeric results) [facility] ([facility]) . This test was developed and its performance characteristics determined by [employer]. It has not been cleared or approved [...] fatty liver disease. BMC Gastroenterology 2006; 6:34 doi:[id number]/[id number]-[id number]. ID Date Data Source [id number] 02/14/2020 08:22:00 AM EST [facility] ([facility]) Name Value Range Interpretation Code Description Data Mai rce(s) Supporting Document(s) Ferritin [Mass/volume] in Serum or Plasma 336 ng/mL 26-388 Normal (applies to non-numeric results) [facility] ([facility]) Ceruloplasmin [Mass/volume] in Serum or Plasma 29.9 mg/dL 1 6.0-31.0 Normal (applies to non-numeric results) [facility] ([facility]) ID Date Data Source [id number] 02/14/2020 08:22:00 AM [facility] ([facility]) Name Value Range Interpretation Code Description Data Mai rce(s) Supporting Document(s) Iron (Fe) 63 ug/dL 65-175 Below low normal [facility] ( [facility]) Total Iron Binding Capacity 215 ug/dL 250-450 Below low normal [facility] ([facility]) Percent Saturation 29.3 % 19.7-50.0 Normal (applies to non-numer ic results) [facility]) ID Date Data Source [id number] 02/14/2020 08:22:00 AM [facility] ([facility]) Name Value Range Interpretation Code Description Data Mai rce(s) Supporting Document(s) Liver-Kidney Microsomal [facility] Laboratory test result 0.0-20.0 Normal (applies to non-numeric results) [facility]) Negative 0.0 - 20.0 Equivocal 20.1 - 24.9 Positive >24.9 . LKM type 1 antibodies are detected in patients with autoimmune hepatitis type 2 and in up to 8% of patients with chronic HCV infection. Actin IgG Ab [Units/volume] in Serum or Plasma 5 units 0 -19 Normal (applies to non-numeric results) [facility] ([facility]) Negative 0 - 19 Weak positive 20 - 30 Moderate to strong positive >30 . Actin Antibodies are found in 52-85% of patients with autoimmune hepatitis or chronic active hepatitis and in 22% of patients with primary biliary cirrhosis. Mitochondria Ab [Units/volume] in Serum Laboratory test result 0 .0-20.0 Normal (applies to non-numeric results) [facility]) Negative 0.0 - 20.0 Equivocal 20.1 - 24.9 Positive >24.9 . Mitochondrial (M2) Antibodies are found in 90-96% of patients with primary biliary cirrhosis. Hepatitis A virus IgG Ab [Units/volume] in Serum Laboratory test result Normal (applies to non-numeric results) [facility] ([facility]) Performed at: [facility] [address] [id number] [employer] Computer [employer] Teacher: Amara Zamudio MD, Phone: [phone] Performed at: [facility] [id number] [employer] Teacher: Dory Anderson MD, Phone: [phone] Hepatitis B virus core Ab [Presence] in Serum Laboratory test re sult Normal (applies to non-numeric results) [facility]) Hepatitis B virus surface Ag [Presence] in Serum or Pl asma by Immunoassay Laboratory test result Normal (applies to non-numeric results) [facility] ([facility]) Hepatitis B virus surface Ab [Units/volume] in Serum Laboratory test result Below low normal [facility] ([facility]) Status of Immunity A nti-HBs Level - Inconsistent with Immunity 0.0 - 9.9 Consistent with Immunity >9.9 Hepatitis C virus Ab [Units/volume] in Serum by Immunoassay 0.2 INDEX Normal (applies to non-numeric results) [facility] ([facility]) Negative Not infected with HCV, unless recent infection is suspected or other evidence exists to indicate HCV infection. ID Date Data Source [id number] 02/14/2020 08:22:00 AM EST [facility] ([facility]) Name Value Range Interpretation Code Description Data Mai rce(s) Supporting Document(s) Antinuclear Antibodies Direct Laboratory test result Normal (applies to non- numeric results) [facility] ([facility]) ID Date Data Source [id number] 02/14/2020 08:22:00 AM EST [facility] ([facility]) Name Value Range Interpretation Code Description Data Mai rce(s) Supporting Document(s) Ast/Sgot 144 U/L 7-37 Above high normal [facility] ([facility]) Alt/SGPT 50 U/L 12-78 Normal (applies to non-numeric resul ts) [facility] ([facility]) Alkaline Phosphatase 210 U/L 45-117 Above high normal [facility] ([facility]) Bilirubin,Total 1.6 mg/dL 0.2-1.0 Above high normal [facility] ([facility]) Albumin 3.1 GM/DL 3.2-5.2 Below low normal [facility] ( [facility]) Total Protein 7.1 GM/DL 6.4-8.2 Normal (applies to non-numeric re sults) [facility] ([facility]) Bilirubin,Direct 1.0 mg/dL 0.0-0.2 Above high normal [facility] ([facility]) Albumin/Globulin Ratio 0.8 Normal (applies to non-n umeric results) [facility] ([facility]) Procedure Social History Code Duration Value Status Description Data Source(s ) Smoking 12/07/2020 12:00:00 AM EDT Never Smoker completed Never S moker eCW1 ([facility]) Smoking 12/07/2020 12:00:00 AM EDT Never Smoker completed Never S moker eCW1 ([facility]) Smoking 07/18/2020 12:00:00 AM EDT Non Smoker completed Non Smoke r [facility] ([facility]) Smoking 06/22/2020 12:00:00 AM EDT Never Smoker completed Never S moker eCW1 ([facility]) Smoking 06/22/2020 12:00:00 AM EDT Never Smoker completed Never S moker eCW1 ([facility]) Vital Signs ID Date Data Source UNK Name Value Range Interpretation Code Description Data Source(s) Body weight 203 [lb_av] 203 [lb_av] eCW1 ([facility]) Body height 67.5 [in_i] 67.5 [in_i] eCW1 ([facility]) Body mass index (BMI) [Ratio] 31.32 kg/m2 31.32 kg/m2 eCW1 ([facility]) Heart rate 107 /min 107 /min eCW1 ([facility]) Respiratory rate 18 /min 18 /min eCW1 ([facility]) Body temperature 98 [degF] 98 [degF] eCW1 ([facility]) Systolic blood pressure 124 mm[Hg] 124 mm[Hg] e CW1 ([facility]) Diastolic blood pressure 80 mm[Hg] 80 mm[Hg] eCW1 ([facility]) Body temperature 96.2 [degF] 96.2 [degF] [facility] ([facility]) Body surface area Derived from formula 2.13 m2 2.13 m2 [facility] ([facility]) Systolic blood pressure 136 mm[Hg] 136 mm[Hg] M [facility] ([facility]) Diastolic blood pressure 80 mm[Hg] 80 mm[Hg] [facility] ([facility]) Body height 70 [in_i] 70 [in_i] [facility] ([facility]) 5'10" Body weight 210.00 [lb_av] 210.00 [lb_av] MED[facility] T ([facility]) Body mass index (BMI) [Ratio] 30.1 kg/m2 30.1 k g/m2 [facility] ([facility]) Raymond body weight 166 [lb_av] 166 [lb_av] [facility] T ([facility]) Body weight 95.256 kg 95.256 kg [facility] ([facility]) Systolic blood pressure 138 mm[Hg] 138 mm[Hg] M EDENT ([facility]) Diastolic blood pressure 74 mm[Hg] 74 mm[Hg] [facility] ([facility]) Body height 70 [in_i] 70 [in_i] [facility] ([facility]) 5'10" Body weight 234.00 [lb_av] 234.00 [lb_av] [facility] T ([facility]) Body mass index (BMI) [Ratio] 33.6 kg/m2 33.6 k g/m2 [facility] ([facility]) Raymond body weight 166 [lb_av] 166 [lb_av] [facility] T ([facility]) Body weight 106.142 kg 106.142 kg [facility] ([facility]) Body surface area Derived from formula 2.23 m2 2.23 m2 [facility] ([facility]) Body temperature 98.3 [degF] 98.3 [degF] [facility] ([facility]) Body weight 101.153 kg 101.153 kg [facility] ([facility]) Body temperature 98.3 [degF] 98.3 [degF] [facility] ([facility]) Body height 70 [in_i] 70 [in_i] [facility] ([facility]) 5'10" Body weight 223.00 [lb_av] 223.00 [lb_av] [facility] T ([facility]) Body mass index (BMI) [Ratio] 32.0 kg/m2 32.0 k g/m2 [facility] ([facility]) Raymond body weight 166 [lb_av] 166 [lb_av] [facility] T ([facility]) Body weight 101.153 kg 101.153 kg [facility] Body surface area Derived from formula 2.19 m2 2.19 m2 [facility] ([facility]) Body height 70 [in_i] 70 [in_i] [facility] ([facility]) 5'10" Body weight 223.00 [lb_av] 223.00 [lb_av] [facility] T ([facility]) Body mass index (BMI) [Ratio] 32.0 kg/m2 32.0 k g/m2 [facility] Raymond body weight 166 [lb_av] 166 [lb_av] [facility] T ([facility]) Body surface area Derived from formula 2.19 m2 2.19 m2 [facility] Body height 70 [in_i] 70 [in_i] [facility] ([facility]) 5'10" Body weight 220.00 [lb_av] 220.00 [lb_av] [facility] T ([facility]) Body mass index (BMI) [Ratio] 31.6 kg/m2 31.6 k g/m2 [facility] ([facility]) Raymond body weight 166 [lb_av] 166 [lb_av] [facility] T ([facility]) Body weight 99.792 kg 99.792 kg [facility] ([facility]) Body surface area Derived from formula 2.17 m2 2.17 m2 [facility] ([facility]) Body height 70 [in_i] 70 [in_i] [facility] ([facility]) 5'10" Body weight 220.00 [lb_av] 220.00 [lb_av] [facility] T ([facility]) Body mass index (BMI) [Ratio] 31.6 kg/m2 31.6 k g/m2 [facility] ([facility]) Raymond body weight 166 [lb_av] 166 [lb_av] [facility] T ([facility]) Body weight 99.792 kg 99.792 kg [facility] ([facility]) Body surface area Derived from formula 2.17 m2 2.17 m2 [facility] ([facility]) Systolic blood pressure 126 mm[Hg] 126 mm[Hg] M [facility] ([facility]) Diastolic blood pressure 66 mm[Hg] 66 mm[Hg] [facility] ([facility]) Systolic blood pressure 126 mm[Hg] 126 mm[Hg] [facility] Diastolic blood pressure 70 mm[Hg] 70 mm[Hg] [facility] ([facility]) Body height 70 [in_i] 70 [in_i] [facility] ([facility]) 5'10" Body weight 244.00 [lb_av] 244.00 [lb_av] [facility] T ([facility]) Body mass index (BMI) [Ratio] 35.0 kg/m2 35.0 k g/m2 [facility] ([facility]) Raymond body weight 166 [lb_av] 166 [lb_av] ERICKA Rueda ([facility], ) Body weight 110.678 kg 110.678 kg K[facility] ([facility]) Body surface area Derived from formula 2.27 m2 2.27 m2 [facility] Patient Treatment Plan of Care Planned Activity Planned Date Details Description Data Source (s) Surekha M10 10 MEQ 12/18/2020 12:00:00 AM EDT eCW1 ([facility]) Azithromycin 250 MG Oral Tablet 12/06/2020 12:00:00 AM EDT eCW1 ([facility])
[2020-12-27] MEDS ORDERED: propofoL 200 MG/20 ML VIAL As Ordered ONE ×2 (12:50→13:02)
--- NOTE | 2020-12-27 13:15 | ROOR ---
Patient Name: Yung Blair Procedure Date: 12/27/2020 12:33 PM Date of : 1970 Age: 50 Room: [facility] Gender: Male Note Status: Finalized Procedure: Upper GI endoscopy Indications: For therapy of esophageal varices Providers: Joseluis Jensen MD Referring MD: ABEBE Aguirre Requesting Provider: Medicines: Monitored Anesthesia Care Complications: No immediate complications. Procedure: Pre-Anesthesia Assessment: - Prior to the procedure, a History and Physical was performed, and patient medications and allergies were reviewed. The patient is competent. The risks and benefits of the procedure and the sedation options and risks were discussed with the patient. All questions were answered and informed consent was obtained. Patient identification and proposed procedure were verified by the physician, the nurse and the anesthesiologist in the procedure room. Mental Status Examination: alert and oriented. Airway Examination: normal oropharyngeal airway and neck mobility. Respiratory Examination: clear to auscultation. CV Examination: normal. Prophylactic Antibiotics: The patient does not require prophylactic antibiotics. Prior Anticoagulants: The patient has taken no previous anticoagulant or antiplatelet agents. ASA Grade Assessment: III - A patient with severe systemic disease. After reviewing the risks and benefits, the patient was deemed in satisfactory condition to undergo the procedure. The anesthesia plan was to use monitored anesthesia care (MAC). Immediately prior to administration of medications, the patient was re-assessed for adequacy to receive sedatives. The heart rate, respiratory rate, oxygen saturations, blood pressure, adequacy of pulmonary ventilation, and response to care were monitored throughout the procedure. The physical status of the patient was re-assessed after the procedure. The Endoscope was introduced through the mouth, and advanced to the second part of duodenum. The upper GI endoscopy was accomplished without difficulty. The patient tolerated the procedure well. Findings: Two columns of non-bleeding grade II, large (> 5 mm) varices were found in the middle third of the esophagus and in the lower third of the esophagus,. No stigmata of recent bleeding were evident and red amadou signs were present. Two bands were successfully placed with complete eradication, resulting in deflation of varices. There was no bleeding during and at the end of the procedure. Moderate portal hypertensive gastropathy was found in the gastric fundus, in the gastric body and in the gastric antrum. The duodenal bulb and second portion of the duodenum were normal. Impression: - Non-bleeding grade II and large (> 5 mm) esophageal varices. Completely eradicated. Banded. - Portal hypertensive gastropathy. - Normal duodenal bulb and second portion of the duodenum. - No specimens collected. Recommendation: - Patient has a contact number available for emergencies. The signs and symptoms of potential delayed complications were discussed with the patient. Return to normal activities tomorrow. Written discharge instructions were provided to the patient. - Clear liquid diet today, then advance as tolerated to mechanical soft diet and low sodium diet. - Continue present medications. - Await pathology results. - Repeat upper endoscopy in 6 months to evaluate the response to therapy, per protocol and for retreatment. - Return to GI clinic if persistent symptoms or new symptoms. - Return to primary care physician. Procedure Code(s): --- Professional --- 13831, Esophagogastroduodenoscopy, flexible, transoral; with band ligation of esophageal/gastric varices Diagnosis Code(s): --- Professional --- I85.00, Esophageal varices without bleeding K76.6, Portal hypertension K31.89, Other diseases of stomach and duodenum CPT copyright 2019 [employer]. All rights reserved. The codes documented in this report are preliminary and upon mortician supplies sales representative review may be revised to meet current compliance requirements. Joseluis Jensen MD Joseluis Jensen MD 12/27/2020 1:14:41 PM Electronically signed by Joseluis Jensen MD Number of Addenda: 0 Note Initiated On: 12/27/2020 12:33 PM Estimated Blood Loss: Estimated blood loss was minimal.
--- NOTE | 2020-12-27 13:18 | ROOR ---
Patient Name: Yung Blair Procedure Date: 12/27/2020 12:32 PM Date of : 1970 Age: 50 Room: [facility] Gender: Male Note Status: Finalized Procedure: Colonoscopy Indications: Screening for colorectal malignant neoplasm Providers: Joseluis Jensen MD Referring MD: ABEBE Aguirre Requesting Provider: Medicines: Monitored Anesthesia Care Complications: No immediate complications. Procedure: Pre-Anesthesia Assessment: - Prior to the procedure, a History and Physical was performed, and patient medications and allergies were reviewed. The patient is competent. The risks and benefits of the procedure and the sedation options and risks were discussed with the patient. All questions were answered and informed consent was obtained. Patient identification and proposed procedure were verified by the physician, the nurse and the anesthesiologist in the procedure room. Mental Status Examination: alert and oriented. Airway Examination: normal oropharyngeal airway and neck mobility. Respiratory Examination: clear to auscultation. CV Examination: normal. Prophylactic Antibiotics: The patient does not require prophylactic antibiotics. Prior Anticoagulants: The patient has taken no previous anticoagulant or antiplatelet agents. ASA Grade Assessment: III - A patient with severe systemic disease. After reviewing the risks and benefits, the patient was deemed in satisfactory condition to undergo the procedure. The anesthesia plan was to use monitored anesthesia care (MAC). Immediately prior to administration of medications, the patient was re-assessed for adequacy to receive sedatives. The heart rate, respiratory rate, oxygen saturations, blood pressure, adequacy of pulmonary ventilation, and response to care were monitored throughout the procedure. The physical status of the patient was re-assessed after the procedure. The Colonoscope was introduced through the anus and advanced to the terminal ileum, with identification of the appendiceal orifice and IC valve. The colonoscopy was performed without difficulty. The patient tolerated the procedure well. The quality of the bowel preparation was good. The terminal ileum, ileocecal valve, appendiceal orifice, and rectum were photographed. Scope insertion time was 2 minutes. Scope withdrawal time was 9 minutes. The total duration of the procedure was 12 minutes. Findings: The perianal and digital rectal examinations were normal. The terminal ileum appeared normal. Two sessile polyps were found in the recto-sigmoid colon and ascending colon. The polyps were 3 to 5 mm in size. These polyps were removed with a hot snare. Resection and retrieval were complete. Verification of patient identification for the specimen was done by the physician and nurse using the patient's name, date and medical record number. Estimated blood loss was minimal. A 15 mm polyp was found in the sigmoid colon. The polyp was sessile. The polyp was removed with a hot snare. Resection and retrieval were complete. Multiple small-mouthed diverticula were found in the sigmoid colon. There was no evidence of diverticular bleeding. Non-bleeding external and internal hemorrhoids were found during retroflexion. The hemorrhoids were medium-sized. Impression: - The examined portion of the ileum was normal. - Two 3 to 5 mm polyps at the recto-sigmoid colon and in the ascending colon, removed with a hot snare. Resected and retrieved. - One 15 mm polyp in the sigmoid colon, removed with a hot snare. Resected and retrieved. - Diverticulosis in the sigmoid colon. There was no evidence of diverticular bleeding. - Non-bleeding external and internal hemorrhoids. Recommendation: - Patient has a contact number available for emergencies. The signs and symptoms of potential delayed complications were discussed with the patient. Return to normal activities tomorrow. Written discharge instructions were provided to the patient. - Clear liquid diet today, then advance as tolerated to mechanical soft diet and low sodium diet. - Continue present medications. - Await pathology results. - Repeat colonoscopy in 3 - 5 years for surveillance based on pathology results. - Telephone GI clinic for pathology results in 2 weeks. - Follow the recommendations as per the other procedure note. - Return to primary care physician. Procedure Code(s): --- Professional --- 10002, Colonoscopy, flexible; with removal of tumor(s), polyp(s), or other lesion(s) by snare technique Diagnosis Code(s): --- Professional --- K63.5, Polyp of colon Z12.11, Encounter for screening for malignant neoplasm of colon K64.8, Other hemorrhoids K57.30, Diverticulosis of large intestine without perforation or abscess without bleeding CPT copyright 2019 [employer]. All rights reserved. The codes documented in this report are preliminary and upon mat puncher review may be revised to meet current compliance requirements. Joseluis Jensen MD Joseluis Jensen MD 12/27/2020 1:17:44 PM Electronically signed by Joseluis Jensen MD Number of Addenda: 0 Note Initiated On: 12/27/2020 12:32 PM Estimated Blood Loss: Estimated blood loss was minimal.
[2020-12-27 13:30] VITALS: BP 134/87
== END 2020-12-27 13:41 | disposition home or self-care (01) ==
LOC: M OPP 10:53
PROVIDERS: ATTEND Internal Medicine Gastroenterology
DX: Z12.11 Encounter for screening for malignant neoplasm of colon (principal); K63.5 Polyp of colon; K57.30 Diverticulosis of large intestine without perforation or abscess without bleeding; K64.8 Other hemorrhoids; K74.60 Unspecified cirrhosis of liver; I85.00 Esophageal varices without bleeding; K76.6 Portal hypertension; K31.89 Other diseases of stomach and duodenum

== ENCOUNTER → 2021-04-01 | Outpatient (REF) | payer BC ==
[~2021-04-01] MED LIST changes: -LIDOCAINE 2% 100MG/5ML SDV (FOR ANES.) As Ordered ONE; -NS 1,000 ML IV ONE; -propofoL 200 MG/20 ML VIAL As Ordered ONE
[2021-04-01 13:20] LABS: BASO # 0.1 10^3/uL (0.0-0.2); BASO % 0.7 % (0.0-1.0); EOS # 0.2 10^3/uL (0.0-0.5); EOS % 1.6 % (0.0-3.0); HEMOGLOBIN 14.9 g/dl (13.5-17.5); LYMPH # 3.3 10^3/uL (1.5-5.0); LYMPH % 28.6 % (24.0-44.0); MEAN CORPUSCULAR HEMOGLOBIN 32.7 pg (27.0-33.0); MEAN CORPUSCULAR HGB CONC 31.7 g/dl (32.0-36.5); MEAN CORPUSCULAR VOLUME 103.3 fl (80.0-96.0); MONO % 8.6 % (2.0-8.0); NEUTROPHILS % 60.2 % (36.0-66.0); PLATELET COUNT, AUTOMATED 231 10^3/uL (150-450); RED BLOOD COUNT 4.55 10^6/uL (4.30-6.10); WHITE BLOOD COUNT 11.6 10^3/uL (4.0-10.0)
[2021-04-01 13:57] LABS: ALBUMIN 3.1 GM/DL (3.2-5.2); ALT/SGPT 47 U/L (12-78); BILIRUBIN,TOTAL 1.3 MG/DL (0.2-1.0); BLOOD UREA NITROGEN 3 MG/DL (7-18); CALCIUM LEVEL 9.1 MG/DL (8.5-10.1); CARBON DIOXIDE LEVEL 26 MEQ/L (21-32); CHLORIDE LEVEL 107 MEQ/L (98-107); CHOLESTEROL LEVEL 299 MG/DL (<200); CREATININE FOR GFR 0.62 MG/DL (0.70-1.30); GLOMERULAR FILTRATION RATE > 60.0 (>60); GLUCOSE, FASTING 89 MG/DL (70-100); HDL CHOLESTEROL 26 MG/DL (>40); IRON (FE) 74 UG/DL (65-175); LDL CHOLESTEROL 226 MG/DL (<100); NON-HDL-C 273 MG/DL; PERCENT SATURATION 26.3 % (19.7-50.0); POTASSIUM SERUM 4.3 MEQ/L (3.5-5.1); SODIUM LEVEL 141 MEQ/L (136-145); TOTAL IRON BINDING CAPACITY 281 UG/DL (250-450); TOTAL PROTEIN 6.9 GM/DL (6.4-8.2); TRIGLYCERIDES LEVEL 235 MG/DL (<150)
[2021-04-01 14:45] LABS: HEMOGLOBIN A1c 6.9 %
[2021-04-01 15:29] LABS: TOTAL 25(OH) VITAMIN D 13.1 NG/ML (30.0-100.0)
== END ==
LOC: M SFHCADAM 10:49
PROVIDERS: ATTEND Physician Assistant Medical
DX: E11.65 Type 2 diabetes mellitus with hyperglycemia (principal); E78.2 Mixed hyperlipidemia; E66.01 Morbid (severe) obesity due to excess calories; F10.10 Alcohol abuse, uncomplicated; E16.2 Hypoglycemia, unspecified; K70.30 Alcoholic cirrhosis of liver without ascites; I10 Essential (primary) hypertension

== ENCOUNTER → 2021-04-02 | Outpatient (CLI) | payer BC | LOC: M CARPUL 13:37 | PROVIDERS: ATTEND Physician Assistant Medical | DX: I10 Essential (primary) hypertension (principal); I35.8 Other nonrheumatic aortic valve disorders ==

== ENCOUNTER → 2021-05-21 | Outpatient (CLI) | payer BC | LOC: M RAD 08:31 | PROVIDERS: ATTEND Physician Assistant Medical | DX: K76.0 Fatty (change of) liver, not elsewhere classified (principal); K70.30 Alcoholic cirrhosis of liver without ascites ==

== ENCOUNTER → 2021-07-11 | Outpatient (REF) | payer BC ==
[2021-07-11 13:43] LABS: BLOOD UREA NITROGEN 5 MG/DL (7-18); CALCIUM LEVEL 8.9 MG/DL (8.5-10.1); CARBON DIOXIDE LEVEL 26 MEQ/L (21-32); CHLORIDE LEVEL 105 MEQ/L (98-107); CREATININE FOR GFR 0.65 MG/DL (0.70-1.30); GLOMERULAR FILTRATION RATE > 60.0 (>60); GLUCOSE, FASTING 277 MG/DL (70-100); POTASSIUM SERUM 4.5 MEQ/L (3.5-5.1); SODIUM LEVEL 140 MEQ/L (136-145)
[2021-07-11 13:55] LABS: VITAMIN B12 LEVEL 838 PG/ML
[2021-07-12 18:45] LABS: FOLATE 20.5 NG/ML
== END ==
LOC: M SFHCADAM 08:20
PROVIDERS: ATTEND Physician Assistant Medical
DX: D75.89 Other specified diseases of blood and blood-forming organs (principal); K70.31 Alcoholic cirrhosis of liver with ascites

== ENCOUNTER → 2021-07-18 | Outpatient (REF) | payer BC ==
[2021-07-18 16:41] LABS: ALBUMIN 3.5 GM/DL (3.2-5.2); ALT/SGPT 109 U/L (12-78); BILIRUBIN,TOTAL 2.3 MG/DL (0.2-1.0); BLOOD UREA NITROGEN 8 MG/DL (7-18); CALCIUM LEVEL 9.6 MG/DL (8.5-10.1); CARBON DIOXIDE LEVEL 26 MEQ/L (21-32); CHLORIDE LEVEL 101 MEQ/L (98-107); CREATININE FOR GFR 0.63 MG/DL (0.70-1.30); GLOMERULAR FILTRATION RATE > 60.0 (>60); GLUCOSE, FASTING 163 MG/DL (70-100); POTASSIUM SERUM 3.8 MEQ/L (3.5-5.1); SODIUM LEVEL 136 MEQ/L (136-145); TOTAL PROTEIN 7.3 GM/DL (6.4-8.2)
[2021-07-18 16:55] LABS: HEMOGLOBIN A1c 8.7 %
== END ==
LOC: M SFHCADAM 13:51
PROVIDERS: ATTEND Physician Assistant Medical
DX: K70.31 Alcoholic cirrhosis of liver with ascites (principal); E11.65 Type 2 diabetes mellitus with hyperglycemia

== ENCOUNTER → 2021-08-19 | Outpatient (REF) | payer BC ==
[2021-08-19 14:32] LABS: BLOOD UREA NITROGEN 5 MG/DL (7-18); CALCIUM LEVEL 9.4 MG/DL (8.5-10.1); CARBON DIOXIDE LEVEL 29 MEQ/L (21-32); CHLORIDE LEVEL 99 MEQ/L (98-107); CHOLESTEROL LEVEL 218 MG/DL (<200); CREATININE FOR GFR 0.71 MG/DL (0.70-1.30); GLOMERULAR FILTRATION RATE > 60.0 (>60); GLUCOSE, FASTING 131 MG/DL (70-100); HDL CHOLESTEROL 42 MG/DL (>40); LDL CHOLESTEROL 143 MG/DL (<100); NON-HDL-C 176 MG/DL; POTASSIUM SERUM 3.8 MEQ/L (3.5-5.1); SODIUM LEVEL 138 MEQ/L (136-145); TRIGLYCERIDES LEVEL 163 MG/DL (<150)
== END ==
LOC: M SFHCADAM 10:11
PROVIDERS: ATTEND Physician Assistant Medical
DX: K70.31 Alcoholic cirrhosis of liver with ascites (principal); E11.65 Type 2 diabetes mellitus with hyperglycemia

== ENCOUNTER → 2022-01-27 | Outpatient (REF) | payer BC ==
[2022-01-27 14:29] LABS: BASO % 0.2 % (0.0-1.0); EOS % 0.1 % (0.0-3.0); HEMATOCRIT 45.2 % (42.0-52.0); HEMOGLOBIN 14.5 g/dl (13.5-17.5); LYMPH # 1.7 10^3/uL (1.5-5.0); LYMPH % 10.9 % (24.0-44.0); MEAN CORPUSCULAR HGB CONC 32.1 g/dl (32.0-36.5); MEAN CORPUSCULAR VOLUME 102.7 fl (80.0-96.0); MONO # 1.2 10^3/uL (0.0-0.8); MONO % 8.1 % (2.0-8.0); NEUTROPHILS # 12.1 10^3/uL (1.5-8.5); NEUTROPHILS % 80.1 % (36.0-66.0); PLATELET COUNT, AUTOMATED 285 10^3/uL (150-450); WHITE BLOOD COUNT 15.2 10^3/uL (4.0-10.0)
[2022-01-27 15:11] LABS: ALBUMIN 3.2 G/DL (3.2-5.2); ALKALINE PHOSPHATASE 172 U/L (46-116); ALT/SGPT 49 U/L (7.0-40); AST/SGOT 53 U/L (<34); BILIRUBIN,TOTAL 1.5 MG/DL (0.3-1.2); BLOOD UREA NITROGEN 11 MG/DL (9-23); CARBON DIOXIDE LEVEL 27 MMOL/L (20-31); CHLORIDE LEVEL 103 MMOL/L (98-107); CREATININE FOR GFR 0.54 MG/DL (0.70-1.30); GLOMERULAR FILTRATION RATE > 60.0 (>60); GLUCOSE, FASTING 138 MG/DL (60-100); IRON (FE) 130 UG/DL (65-175); PERCENT SATURATION 45.9 % (19.7-50.0); POTASSIUM SERUM 4.8 MMOL/L (3.5-5.1); SODIUM LEVEL 139 MMOL/L (136-145); TOTAL IRON BINDING CAPACITY 283 UG/DL (250-425); TOTAL PROTEIN 6.5 G/DL (5.7-8.2)
[2022-01-27 15:14] LABS: VITAMIN B12 LEVEL 440 PG/ML (211-911)
[2022-01-27 16:23] LABS: FOLATE 8.6 NG/ML (>5.4)
[2022-01-27 16:40] LABS: HEMOGLOBIN A1c 7.9 % (4.0-6.0)
== END ==
LOC: M SFHCADAM 13:16
PROVIDERS: ATTEND Physician Assistant
DX: E11.65 Type 2 diabetes mellitus with hyperglycemia (principal); I10 Essential (primary) hypertension; K70.31 Alcoholic cirrhosis of liver with ascites

== ENCOUNTER 2022-02-11 11:09 | Inpatient (IN) | payer BC ==
[~2022-02-11] VITALS: Ht 177.8 cm; Wt 92.7 kg
[2022-02-11] MEDS ORDERED: ACETAMINOPHEN 1000MG 100ML IV BAG IV ONE (12:45)
[2022-02-11] MEDS ORDERED: NS 500 ML IV ONE (12:55)
[2022-02-11] MEDS ORDERED: PIPERACILLIN/TAZOBACTAM SOD 4.5 GM in D5W MINI-BAG PLUS 50 ML IV ONE (13:15)
[2022-02-11 13:19] LABS: BASO # 0.1 10^3/uL (0.0-0.2); BASO % 0.3 % (0.0-1.0); EOS % 0.2 % (0.0-3.0); HEMATOCRIT 47.6 % (42.0-52.0); HEMOGLOBIN 15.4 g/dl (13.5-17.5); LYMPH # 0.7 10^3/uL (1.5-5.0); LYMPH % 3.4 % (24.0-44.0); MEAN CORPUSCULAR HEMOGLOBIN 32.1 pg (27.0-33.0); MEAN CORPUSCULAR HGB CONC 32.4 g/dl (32.0-36.5); MEAN CORPUSCULAR VOLUME 99.2 fl (80.0-96.0); MONO # 1.2 10^3/uL (0.0-0.8); MONO % 6.4 % (2.0-8.0); NEUTROPHILS # 16.9 10^3/uL (1.5-8.5); NEUTROPHILS % 88.7 % (36.0-66.0); PLATELET COUNT, AUTOMATED 146 10^3/uL (150-450); WHITE BLOOD COUNT 19.1 10^3/uL (4.0-10.0)
[2022-02-11 13:39] LABS: LIPASE 27 U/L (12-53)
[2022-02-11 13:41] LABS: ALBUMIN 2.7 G/DL (3.2-5.2); ALKALINE PHOSPHATASE 183 U/L (46-116); ALT/SGPT 32 U/L (7.0-40); AST/SGOT 58 U/L (<34); BILIRUBIN,DIRECT 6.2 MG/DL (<0.4); BILIRUBIN,TOTAL 8.8 MG/DL (0.3-1.2); BLOOD UREA NITROGEN 13 MG/DL (9-23); CALCIUM LEVEL 8.2 MG/DL (8.5-10.1); CARBON DIOXIDE LEVEL 21 MMOL/L (20-31); CHLORIDE LEVEL 97 MMOL/L (98-107); CREATININE FOR GFR 0.62 MG/DL (0.70-1.30); GLOMERULAR FILTRATION RATE > 60.0 (>60); GLUCOSE, FASTING 120 MG/DL (60-100); POTASSIUM SERUM 4.3 MMOL/L (3.5-5.1); SODIUM LEVEL 129 MMOL/L (136-145); TOTAL PROTEIN 6.4 G/DL (5.7-8.2)
[2022-02-11] MEDS ORDERED: ISOVUE-370 76% 100ML VIAL As Ordered ONE (13:44)
[2022-02-11 13:48] LABS: ETHYL ALCOHOL (ETHANOL) 0.005 % (0.000-0.010)
[2022-02-11] MEDS ORDERED: NS 1,780 ML in IV 1 EA IV ONE (13:50)
[2022-02-11] MEDS ORDERED: NS IV ONE (13:55)
[2022-02-11 13:58] LABS: RSV AMPLIFICATION NEGATIVE (NEGATIVE)
[2022-02-11] MEDS ORDERED: LIDOCAINE 2% 5ML JELLY UROJET TOP ONE (14:30)
[2022-02-11] MEDS ORDERED: SPIR50TA4 PO (15:36)
[2022-02-11] MEDS ORDERED: DULA3PEN SQ (15:36)
[2022-02-11] MEDS ORDERED: SIMV40TA20 PO (15:36)
[2022-02-11] MEDS ORDERED: FURO40TA2 PO (15:36)
[2022-02-11] MEDS ORDERED: POTA-141 PO (15:46)
[2022-02-11] MEDS ORDERED: INSU100I16 SQ (15:46)
[2022-02-11] MEDS ORDERED: INSU100V13 SQ (15:46)
[2022-02-11] MEDS ORDERED: HOME MED LIST COMPLETE! XX SCH (16:00)
[2022-02-11 16:03] LABS: CK-MB VALUE MASS < 1.0 NG/ML (<3.6)
[2022-02-11 16:04] LABS: CPK CREATINE PHOSPHOKINASE 52 U/L (46-171); MB/CK RELATIVE INDEX 1.92 (< OR =4)
[2022-02-11] MEDS: NS 1,000 ML IV SCH (18:57)
[2022-02-11] MEDS ORDERED: VANCOMYCIN HCL 1,000 MG, VIAL MATE ADAPTER 1 EACH in NS 250 ML IV SCH (19:15)
[2022-02-11] MEDS ORDERED: DEXTROSE 50% 50ML SYRINGE IV PRN (19:25)
[2022-02-11] MEDS ORDERED: MOM 30ML SUSPENSION UDC PO PRN (19:25)
[2022-02-11] MEDS ORDERED: KETOROLAC 30 MG/ML 1ML VIAL IV ONE (19:25)
[2022-02-11] MEDS ORDERED: GLUCOSE 4GM CHEW TABLET PO PRN (19:25)
[2022-02-11] MEDS ORDERED: SENOKOT S TAB PO PRN (19:25)
[2022-02-11] MEDS ORDERED: GLUCAGON INJ 1MG VIAL SC PRN (19:25)
[2022-02-11] MEDS ORDERED: oxyCODONE 5MG TAB PO ONE (19:25)
[2022-02-11 20:15] LABS: BILIRUBIN,DIRECT 5.4 MG/DL (<0.4)
[2022-02-11 20:21] LABS: ALBUMIN 2.1 G/DL (3.2-5.2); BILIRUBIN,TOTAL 7.1 MG/DL (0.3-1.2); TOTAL PROTEIN 5.4 G/DL (5.7-8.2)
[2022-02-11 20:44] LABS: ACETAMINOPHEN LEVEL < 2.0 UG/ML (10.0-20.0)
[2022-02-11] MEDS: INSULIN LISPRO (NovoLOG) PER UNIT SC SCH (21:17)
[2022-02-11] MEDS: SUCRALFATE 1 GM TAB PO SCH (21:39)
[2022-02-11] MEDS: PIPERACILLIN/TAZOBACTAM SOD 4.5 GM in D5W MINI-BAG PLUS 50 ML IV SCH (21:39)
[2022-02-11] MEDS: SIMVASTATIN 40 MG TAB PO SCH (21:39)
[2022-02-11] MEDS: PROPRANOLOL 10 MG TAB PO SCH (21:41)
[2022-02-11] MEDS: LIDOCAINE 5% (LIDODERM) PATCH TD SCH (21:41)
[2022-02-11] MEDS ORDERED: oxyCODONE 5MG TAB PO PRN (23:00)
[2022-02-11 23:50] LABS: ALBUMIN 1.9 G/DL (3.2-5.2); BILIRUBIN,TOTAL 6.5 MG/DL (0.3-1.2); TOTAL PROTEIN 5.1 G/DL (5.7-8.2)
[2022-02-12] MEDS ORDERED: VANCOMYCIN HCL 1,000 MG, VIAL MATE ADAPTER 1 EACH in NS 250 ML IV ONE ×4 (01:00)
[2022-02-12] MEDS: PIPERACILLIN/TAZOBACTAM SOD 4.5 GM in D5W MINI-BAG PLUS 50 ML IV SCH (06:17)
[2022-02-12 06:58] LABS: BASO % 0.3 % (0.0-1.0); EOS # 0.1 10^3/uL (0.0-0.5); EOS % 0.6 % (0.0-3.0); HEMATOCRIT 40.2 % (42.0-52.0); LYMPH # 1.3 10^3/uL (1.5-5.0); LYMPH % 8.5 % (24.0-44.0); MEAN CORPUSCULAR HEMOGLOBIN 32.5 pg (27.0-33.0); MEAN CORPUSCULAR HGB CONC 32.8 g/dl (32.0-36.5); MONO % 9.8 % (2.0-8.0); NEUTROPHILS # 12.4 10^3/uL (1.5-8.5); PLATELET COUNT, AUTOMATED 128 10^3/uL (150-450); RED BLOOD COUNT 4.06 10^6/uL (4.30-6.10); WHITE BLOOD COUNT 15.6 10^3/uL (4.0-10.0)
[2022-02-12] MEDS: INSULIN LISPRO (NovoLOG) PER UNIT SC SCH ×4 (07:07→20:52)
[2022-02-12] MEDS ORDERED: oxyCODONE 5MG TAB PO ONE (07:20)
[2022-02-12] MEDS ORDERED: KETOROLAC 30 MG/ML 1ML VIAL IV ONE (07:20)
[2022-02-12 07:32] LABS: HEMOGLOBIN 13.2 g/dl (13.5-17.5); MONO # 1.5 10^3/uL (0.0-0.8)
[2022-02-12 07:56] LABS: HEPATITIS B SURFACE ANTIGEN NEGATIVE (NEGATIVE)
[2022-02-12] MEDS ORDERED: VANCOMYCIN HCL 750 MG, VIAL MATE ADAPTER 1 EACH in D5W 250 ML IV SCH (08:00)
[2022-02-12] MEDS: LACTOBACILLUS ACIDOPHILUS CAP (BACID) PO SCH ×3 (08:03→17:33)
[2022-02-12] MEDS: SUCRALFATE 1 GM TAB PO SCH ×2 (08:03→17:34)
[2022-02-12] MEDS: NS 1,000 ML IV SCH (08:03)
[2022-02-12 08:17] LABS: HEPATITIS B CORE ANTIBODY IGM NEGATIVE (NEGATIVE); HEPATITIS C VIRUS ABY INDEX 0.1 INDEX (<0.8)
[2022-02-12 08:41] LABS: ALBUMIN 2.1 G/DL (3.2-5.2); ALKALINE PHOSPHATASE 134 U/L (46-116); ALT/SGPT 26 U/L (7.0-40); AST/SGOT 50 U/L (<34); BILIRUBIN,TOTAL 6.6 MG/DL (0.3-1.2); BLOOD UREA NITROGEN 15 MG/DL (9-23); CALCIUM LEVEL 7.8 MG/DL (8.5-10.1); CARBON DIOXIDE LEVEL 24 MMOL/L (20-31); CHLORIDE LEVEL 98 MMOL/L (98-107); CREATININE FOR GFR 0.65 MG/DL (0.70-1.30); GLOMERULAR FILTRATION RATE > 60.0 (>60); GLUCOSE, FASTING 66 MG/DL (60-100); POTASSIUM SERUM 3.9 MMOL/L (3.5-5.1); SODIUM LEVEL 131 MMOL/L (136-145); TOTAL PROTEIN 5.5 G/DL (5.7-8.2)
[2022-02-12] MEDS ORDERED: VANCOMYCIN HCL 500 MG in D5W MINI-BAG PLUS 100 ML IV SCH (09:00)
[2022-02-12 09:19] LABS: ERYTHROCYTE SEDIMENTATION RATE 88 mm/hr (0-15)
[2022-02-12] MEDS: THIAMINE 100 MG TAB PO SCH (12:31)
[2022-02-12] MEDS: OMEPRAZOLE 20MG CAP PO SCH (12:31)
[2022-02-12] MEDS: FOLIC ACID 1MG TAB PO SCH (12:31)
[2022-02-12] MEDS: cefTRIAXone SOD 2 GM in D5W MINI-BAG PLUS 50 ML IV SCH (12:32)
[2022-02-12] MEDS: KETOROLAC 30 MG/ML 1ML VIAL IV SCH ×2 (14:19→20:36)
[2022-02-12 15:55] VITALS: BP 118/61
[2022-02-12] MEDS: SIMVASTATIN 40 MG TAB PO SCH (20:36)
[2022-02-12] MEDS: LIDOCAINE 5% (LIDODERM) PATCH TD SCH (20:41)
[2022-02-12] MEDS: PROPRANOLOL 10 MG TAB PO SCH (21:49)
[2022-02-12 22:00] VITALS: BP 114/61
[2022-02-13] MEDS: KETOROLAC 30 MG/ML 1ML VIAL IV SCH ×4 (01:01→20:23)
[2022-02-13 05:51] VITALS: BP 106/63
[2022-02-13 06:37] LABS: BASO % 0.3 % (0.0-1.0); EOS # 0.2 10^3/uL (0.0-0.5); EOS % 1.6 % (0.0-3.0); HEMATOCRIT 38.4 % (42.0-52.0); HEMOGLOBIN 12.8 g/dl (13.5-17.5); LYMPH # 1.5 10^3/uL (1.5-5.0); LYMPH % 12.6 % (24.0-44.0); MEAN CORPUSCULAR HEMOGLOBIN 32.7 pg (27.0-33.0); MEAN CORPUSCULAR HGB CONC 33.3 g/dl (32.0-36.5); MEAN CORPUSCULAR VOLUME 98.2 fl (80.0-96.0); MONO # 1.2 10^3/uL (0.0-0.8); MONO % 10.4 % (2.0-8.0); NEUTROPHILS # 8.6 10^3/uL (1.5-8.5); NEUTROPHILS % 73.6 % (36.0-66.0); PLATELET COUNT, AUTOMATED 134 10^3/uL (150-450); RED BLOOD COUNT 3.91 10^6/uL (4.30-6.10); WHITE BLOOD COUNT 11.7 10^3/uL (4.0-10.0)
[2022-02-13 07:05] LABS: ALBUMIN 1.8 G/DL (3.2-5.2); ALKALINE PHOSPHATASE 153 U/L (46-116); ALT/SGPT 24 U/L (7.0-40); AST/SGOT 65 U/L (<34); BILIRUBIN,TOTAL 4.9 MG/DL (0.3-1.2); BLOOD UREA NITROGEN 21 MG/DL (9-23); CALCIUM LEVEL 7.8 MG/DL (8.5-10.1); CARBON DIOXIDE LEVEL 23 MMOL/L (20-31); CHLORIDE LEVEL 99 MMOL/L (98-107); CREATININE FOR GFR 0.71 MG/DL (0.70-1.30); GLOMERULAR FILTRATION RATE > 60.0 (>60); GLUCOSE, FASTING 86 MG/DL (60-100); POTASSIUM SERUM 3.7 MMOL/L (3.5-5.1); SODIUM LEVEL 133 MMOL/L (136-145)
[2022-02-13] MEDS: INSULIN LISPRO (NovoLOG) PER UNIT SC SCH ×4 (07:30→20:23)
[2022-02-13] MEDS: FOLIC ACID 1MG TAB PO SCH (09:08)
[2022-02-13] MEDS: THIAMINE 100 MG TAB PO SCH (09:09)
[2022-02-13] MEDS: LACTOBACILLUS ACIDOPHILUS CAP (BACID) PO SCH ×3 (09:09→17:59)
[2022-02-13] MEDS: OMEPRAZOLE 20MG CAP PO SCH (09:09)
[2022-02-13] MEDS: SUCRALFATE 1 GM TAB PO SCH ×2 (09:09→17:59)
[2022-02-13 11:08] LABS: ANTINUCLEAR ANTIBODIES DIRECT Negative (Negative)
[2022-02-13] MEDS: cefTRIAXone SOD 2 GM in D5W MINI-BAG PLUS 50 ML IV SCH (12:42)
[2022-02-13] MEDS: ANALGESIC BALM CRM 3OZ TOP SCH ×5 (12:42→20:24)
[2022-02-13 14:00] VITALS: BP 104/64
[2022-02-13] MEDS ORDERED: ISOVUE-370 76% 100ML VIAL As Ordered ONE (18:22)
[2022-02-13 20:19] VITALS: BP 105/65
[2022-02-13] MEDS: SIMVASTATIN 40 MG TAB PO SCH (20:23)
[2022-02-13] MEDS: LIDOCAINE 5% (LIDODERM) PATCH TD SCH (20:23)
[2022-02-13] MEDS: PROPRANOLOL 10 MG TAB PO SCH (20:27)
[2022-02-14] MEDS: KETOROLAC 30 MG/ML 1ML VIAL IV SCH ×4 (02:44→19:51)
[2022-02-14 05:08] VITALS: BP 102/62
[2022-02-14 06:01] LABS: BASO # 0.1 10^3/uL (0.0-0.2); BASO % 0.6 % (0.0-1.0); EOS # 0.2 10^3/uL (0.0-0.5); EOS % 1.6 % (0.0-3.0); HEMATOCRIT 37.6 % (42.0-52.0); HEMOGLOBIN 12.7 g/dl (13.5-17.5); LYMPH # 1.5 10^3/uL (1.5-5.0); LYMPH % 14.5 % (24.0-44.0); MEAN CORPUSCULAR HEMOGLOBIN 32.5 pg (27.0-33.0); MEAN CORPUSCULAR HGB CONC 33.8 g/dl (32.0-36.5); MEAN CORPUSCULAR VOLUME 96.2 fl (80.0-96.0); MONO % 10.2 % (2.0-8.0); NEUTROPHILS # 7.2 10^3/uL (1.5-8.5); NEUTROPHILS % 70.2 % (36.0-66.0); PLATELET COUNT, AUTOMATED 181 10^3/uL (150-450); RED BLOOD COUNT 3.91 10^6/uL (4.30-6.10); WHITE BLOOD COUNT 10.2 10^3/uL (4.0-10.0)
[2022-02-14 06:30] LABS: ALBUMIN 1.7 G/DL (3.2-5.2); ALKALINE PHOSPHATASE 177 U/L (46-116); ALT/SGPT 25 U/L (7.0-40); AST/SGOT 73 U/L (<34); BILIRUBIN,TOTAL 5.7 MG/DL (0.3-1.2); BLOOD UREA NITROGEN 17 MG/DL (9-23); CALCIUM LEVEL 7.9 MG/DL (8.5-10.1); CARBON DIOXIDE LEVEL 23 MMOL/L (20-31); CHLORIDE LEVEL 100 MMOL/L (98-107); CREATININE FOR GFR 0.68 MG/DL (0.70-1.30); GLOMERULAR FILTRATION RATE > 60.0 (>60); GLUCOSE, FASTING 77 MG/DL (60-100); SODIUM LEVEL 131 MMOL/L (136-145); TOTAL PROTEIN 5.2 G/DL (5.7-8.2)
[2022-02-14] MEDS: INSULIN LISPRO (NovoLOG) PER UNIT SC SCH ×4 (07:25→19:43)
[2022-02-14] MEDS: SUCRALFATE 1 GM TAB PO SCH ×2 (08:29→17:25)
[2022-02-14] MEDS: ANALGESIC BALM CRM 3OZ TOP SCH ×4 (08:30→19:52)
[2022-02-14] MEDS: LACTOBACILLUS ACIDOPHILUS CAP (BACID) PO SCH ×3 (08:30→17:25)
[2022-02-14] MEDS: FOLIC ACID 1MG TAB PO SCH (08:30)
[2022-02-14] MEDS: THIAMINE 100 MG TAB PO SCH (08:30)
[2022-02-14] MEDS: OMEPRAZOLE 20MG CAP PO SCH (08:30)
[2022-02-14] MEDS ORDERED: PIPERACILLIN/TAZOBACTAM SOD 4.5 GM in D5W MINI-BAG PLUS 50 ML IV SCH (11:50)
[2022-02-14] MEDS ORDERED: VANCOMYCIN HCL 1,000 MG, VIAL MATE ADAPTER 1 EACH in NS 250 ML IV SCH (11:50)
[2022-02-14] MEDS: cefTRIAXone SOD 2 GM in D5W MINI-BAG PLUS 50 ML IV SCH (12:21)
[2022-02-14] MEDS ORDERED: LIDOCAINE 1% MDV 20ML VIAL As Ordered ONE (12:55)
[2022-02-14 14:00] VITALS: BP 102/62
[2022-02-14 15:39] LABS: CRYSTALS, BODY FLUID NONE SEEN (NONE SEEN); SOURCE, BODY FLUID CRYSTALS LEFT HIP
[2022-02-14 15:43] LABS: SOURCE, BODY FLUID LT HIP; SOURCE, BODY FLUID GLUCOSE HIP LEFT
[2022-02-14 15:44] LABS: SYNOVIAL FLUID COLOR YELLOW (COLORLESS)
[2022-02-14 15:45] LABS: SOURCE, BODY FLUID URIC ACID OTHER
[2022-02-14] MEDS ORDERED: NS 1,000 ML IV ONE (17:15)
[2022-02-14] MEDS: NS 1,000 ML IV SCH (18:29)
[2022-02-14] MEDS: LIDOCAINE 5% (LIDODERM) PATCH TD SCH (19:44)
[2022-02-14] MEDS: SIMVASTATIN 40 MG TAB PO SCH (19:51)
[2022-02-14] MEDS: PROPRANOLOL 10 MG TAB PO SCH (19:53)
[2022-02-14 20:00] VITALS: BP 120/72
[2022-02-15] MEDS: NS 1,000 ML IV SCH (00:58)
[2022-02-15] MEDS: KETOROLAC 30 MG/ML 1ML VIAL IV SCH ×4 (01:00→19:27)
[2022-02-15 05:31] VITALS: BP 100/67
[2022-02-15] MEDS: FOLIC ACID 1MG TAB PO SCH (07:30)
[2022-02-15] MEDS: LACTOBACILLUS ACIDOPHILUS CAP (BACID) PO SCH ×3 (07:30→17:51)
[2022-02-15] MEDS: THIAMINE 100 MG TAB PO SCH (07:30)
[2022-02-15] MEDS: INSULIN LISPRO (NovoLOG) PER UNIT SC SCH ×4 (07:30→20:59)
[2022-02-15] MEDS: OMEPRAZOLE 20MG CAP PO SCH (07:31)
[2022-02-15] MEDS: SUCRALFATE 1 GM TAB PO SCH ×2 (07:31→17:51)
[2022-02-15] MEDS: ANALGESIC BALM CRM 3OZ TOP SCH ×4 (07:33→19:29)
[2022-02-15 07:51] LABS: HEMATOCRIT 36.4 % (42.0-52.0); HEMOGLOBIN 12.3 g/dl (13.5-17.5); MEAN CORPUSCULAR HEMOGLOBIN 32.8 pg (27.0-33.0); MEAN CORPUSCULAR HGB CONC 33.8 g/dl (32.0-36.5); MEAN CORPUSCULAR VOLUME 97.1 fl (80.0-96.0); PLATELET COUNT, AUTOMATED 229 10^3/uL (150-450); RED BLOOD COUNT 3.75 10^6/uL (4.30-6.10); WHITE BLOOD COUNT 9.9 10^3/uL (4.0-10.0)
[2022-02-15 08:01] LABS: ALBUMIN 1.7 G/DL (3.2-5.2); ALKALINE PHOSPHATASE 196 U/L (46-116); ALT/SGPT 23 U/L (7.0-40); AST/SGOT 62 U/L (<34); BILIRUBIN,TOTAL 5.6 MG/DL (0.3-1.2); BLOOD UREA NITROGEN 12 MG/DL (9-23); CALCIUM LEVEL 7.4 MG/DL (8.5-10.1); CARBON DIOXIDE LEVEL 20 MMOL/L (20-31); CHLORIDE LEVEL 104 MMOL/L (98-107); CREATININE FOR GFR 0.61 MG/DL (0.70-1.30); GLOMERULAR FILTRATION RATE > 60.0 (>60); GLUCOSE, FASTING 80 MG/DL (60-100); SODIUM LEVEL 135 MMOL/L (136-145)
[2022-02-15 09:21] LABS: ANISOCYTOSIS 1+; ATYPICAL LYMPH 8 % (0-5); EOSINOPHILS 2 % (0-3); LYMPHOCYTES 7 % (16-44); METAMYELOCYTES 1 % (0-0); MONOCYTES 9 % (0-5); NEUTROPHILS 72 % (28-66)
[2022-02-15 09:23] LABS: PLATELET ESTIMATE NORMAL (NORMAL)
[2022-02-15] MEDS: cefTRIAXone SOD 2 GM in D5W MINI-BAG PLUS 50 ML IV SCH (12:53)
[2022-02-15 14:00] VITALS: BP 104/65
[2022-02-15] MEDS: LIDOCAINE 5% (LIDODERM) PATCH TD SCH (18:41)
[2022-02-15] MEDS: SIMVASTATIN 40 MG TAB PO SCH (19:26)
[2022-02-15] MEDS: PROPRANOLOL 10 MG TAB PO SCH (19:29)
[2022-02-15 22:00] VITALS: BP 102/64
[2022-02-16] MEDS: KETOROLAC 30 MG/ML 1ML VIAL IV SCH ×4 (01:02→21:03)
[2022-02-16 05:21] VITALS: BP 107/66
[2022-02-16] MEDS: INSULIN LISPRO (NovoLOG) PER UNIT SC SCH ×4 (06:22→20:57)
[2022-02-16 06:25] LABS: HEMATOCRIT 37.6 % (42.0-52.0); HEMOGLOBIN 12.9 g/dl (13.5-17.5); MEAN CORPUSCULAR HEMOGLOBIN 32.9 pg (27.0-33.0); MEAN CORPUSCULAR HGB CONC 34.3 g/dl (32.0-36.5); MEAN CORPUSCULAR VOLUME 95.9 fl (80.0-96.0); PLATELET COUNT, AUTOMATED 270 10^3/uL (150-450); RED BLOOD COUNT 3.92 10^6/uL (4.30-6.10); WHITE BLOOD COUNT 10.4 10^3/uL (4.0-10.0)
[2022-02-16 06:55] LABS: ATYPICAL LYMPH 9 % (0-5); EOSINOPHILS 3 % (0-3); LYMPHOCYTES 11 % (16-44); MONOCYTES 7 % (0-5); MYELOCYTES 1 % (0-0); NEUTROPHILS 66 % (28-66)
[2022-02-16 06:56] LABS: ALBUMIN 1.7 G/DL (3.2-5.2); ALKALINE PHOSPHATASE 210 U/L (46-116); ALT/SGPT 21 U/L (7.0-40); ANISOCYTOSIS 1+; AST/SGOT 57 U/L (<34); BILIRUBIN,TOTAL 5.2 MG/DL (0.3-1.2); BLOOD UREA NITROGEN 12 MG/DL (9-23); CALCIUM LEVEL 7.6 MG/DL (8.5-10.1); CARBON DIOXIDE LEVEL 19 MMOL/L (20-31); CHLORIDE LEVEL 106 MMOL/L (98-107); CREATININE FOR GFR 0.54 MG/DL (0.70-1.30); GLOMERULAR FILTRATION RATE > 60.0 (>60); GLUCOSE, FASTING 76 MG/DL (60-100); PLATELET CLUMPS SMALL AMT; PLATELET ESTIMATE NORMAL (NORMAL); SODIUM LEVEL 136 MMOL/L (136-145); TOTAL PROTEIN 5.2 G/DL (5.7-8.2)
[2022-02-16] MEDS: LACTOBACILLUS ACIDOPHILUS CAP (BACID) PO SCH ×3 (07:35→17:09)
[2022-02-16] MEDS: FOLIC ACID 1MG TAB PO SCH (07:36)
[2022-02-16] MEDS: SUCRALFATE 1 GM TAB PO SCH ×2 (07:36→17:09)
[2022-02-16] MEDS: OMEPRAZOLE 20MG CAP PO SCH (07:36)
[2022-02-16] MEDS: THIAMINE 100 MG TAB PO SCH (07:36)
[2022-02-16] MEDS: ANALGESIC BALM CRM 3OZ TOP SCH ×4 (07:38→21:05)
[2022-02-16] MEDS: cefTRIAXone SOD 2 GM in D5W MINI-BAG PLUS 50 ML IV SCH (11:44)
[2022-02-16 14:00] VITALS: BP 109/68
[2022-02-16] MEDS: LIDOCAINE 5% (LIDODERM) PATCH TD SCH (21:00)
[2022-02-16] MEDS: SIMVASTATIN 40 MG TAB PO SCH (21:03)
[2022-02-16] MEDS: PROPRANOLOL 10 MG TAB PO SCH (21:04)
[2022-02-16 21:10] VITALS: BP 108/69
[2022-02-17] MEDS: KETOROLAC 30 MG/ML 1ML VIAL IV SCH ×2 (02:16→08:26)
[2022-02-17 05:30] VITALS: BP 104/61
[2022-02-17] MEDS: INSULIN LISPRO (NovoLOG) PER UNIT SC SCH ×4 (06:13→20:23)
[2022-02-17] MEDS: OMEPRAZOLE 20MG CAP PO SCH (08:26)
[2022-02-17] MEDS: FOLIC ACID 1MG TAB PO SCH (08:26)
[2022-02-17] MEDS: LACTOBACILLUS ACIDOPHILUS CAP (BACID) PO SCH ×3 (08:26→17:36)
[2022-02-17] MEDS: THIAMINE 100 MG TAB PO SCH (08:26)
[2022-02-17] MEDS: SUCRALFATE 1 GM TAB PO SCH ×2 (08:26→17:36)
[2022-02-17] MEDS: ANALGESIC BALM CRM 3OZ TOP SCH ×4 (09:00→20:32)
[2022-02-17 09:32] LABS: ALBUMIN 1.5 G/DL (3.2-5.2); ALKALINE PHOSPHATASE 205 U/L (46-116); ALT/SGPT 20 U/L (7.0-40); AST/SGOT 63 U/L (<34); BILIRUBIN,TOTAL 4.9 MG/DL (0.3-1.2); BLOOD UREA NITROGEN 10 MG/DL (9-23); CALCIUM LEVEL 7.6 MG/DL (8.5-10.1); CARBON DIOXIDE LEVEL 21 MMOL/L (20-31); CHLORIDE LEVEL 104 MMOL/L (98-107); CREATININE FOR GFR 0.59 MG/DL (0.70-1.30); GLOMERULAR FILTRATION RATE > 60.0 (>60); GLUCOSE, FASTING 81 MG/DL (60-100); POTASSIUM SERUM 4.3 MMOL/L (3.5-5.1); SODIUM LEVEL 134 MMOL/L (136-145); TOTAL PROTEIN 5.4 G/DL (5.7-8.2)
[2022-02-17 10:14] LABS: HEMATOCRIT 38.2 % (42.0-52.0); HEMOGLOBIN 12.8 g/dl (13.5-17.5); MEAN CORPUSCULAR HEMOGLOBIN 32.5 pg (27.0-33.0); MEAN CORPUSCULAR HGB CONC 33.5 g/dl (32.0-36.5); PLATELET COUNT, AUTOMATED 331 10^3/uL (150-450); RED BLOOD COUNT 3.94 10^6/uL (4.30-6.10); WHITE BLOOD COUNT 10.7 10^3/uL (4.0-10.0)
[2022-02-17 11:08] LABS: ATYPICAL LYMPH 5 % (0-5); EOSINOPHILS 1 % (0-3); LYMPHOCYTES 8 % (16-44); METAMYELOCYTES 5 % (0-0); MONOCYTES 8 % (0-5); MYELOCYTES 2 % (0-0); NEUTROPHILS 62 % (28-66)
[2022-02-17 11:09] LABS: ANISOCYTOSIS 1+
[2022-02-17 11:10] LABS: PLATELET ESTIMATE NORMAL (NORMAL)
[2022-02-17 11:20] LABS: ERYTHROCYTE SEDIMENTATION RATE 125 mm/hr (0-15)
[2022-02-17] MEDS: cefTRIAXone SOD 2 GM in D5W MINI-BAG PLUS 50 ML IV SCH (12:33)
[2022-02-17 14:00] VITALS: BP 105/63
[2022-02-17] MEDS ORDERED: IBUPROFEN 400MG TAB PO PRN (19:40)
[2022-02-17 20:30] VITALS: BP 108/64
[2022-02-17] MEDS: PROPRANOLOL 10 MG TAB PO SCH (20:31)
[2022-02-17] MEDS: SIMVASTATIN 40 MG TAB PO SCH (20:31)
[2022-02-17] MEDS: LIDOCAINE 5% (LIDODERM) PATCH TD SCH (20:32)
[2022-02-18 06:00] VITALS: BP 109/64
[2022-02-18] MEDS: FOLIC ACID 1MG TAB PO SCH (09:06)
[2022-02-18] MEDS: OMEPRAZOLE 20MG CAP PO SCH (09:06)
[2022-02-18] MEDS: SUCRALFATE 1 GM TAB PO SCH ×2 (09:07→17:50)
[2022-02-18] MEDS: THIAMINE 100 MG TAB PO SCH (09:07)
[2022-02-18] MEDS: LACTOBACILLUS ACIDOPHILUS CAP (BACID) PO SCH ×3 (09:07→17:50)
[2022-02-18] MEDS: INSULIN LISPRO (NovoLOG) PER UNIT SC SCH ×4 (09:08→21:00)
[2022-02-18] MEDS: ANALGESIC BALM CRM 3OZ TOP SCH ×4 (09:08→21:00)
[2022-02-18] MEDS: MORPHINE 4 MG/ML 1ML VIAL IV PRN ×3 (09:16→21:20)
[2022-02-18 09:50] LABS: ALBUMIN 1.5 G/DL (3.2-5.2); ALKALINE PHOSPHATASE 213 U/L (46-116); ALT/SGPT 17 U/L (7.0-40); AST/SGOT 54 U/L (<34); BILIRUBIN,TOTAL 5.1 MG/DL (0.3-1.2); BLOOD UREA NITROGEN 8 MG/DL (9-23); CALCIUM LEVEL 7.6 MG/DL (8.5-10.1); CARBON DIOXIDE LEVEL 22 MMOL/L (20-31); CHLORIDE LEVEL 101 MMOL/L (98-107); CREATININE FOR GFR 0.54 MG/DL (0.70-1.30); GLOMERULAR FILTRATION RATE > 60.0 (>60); GLUCOSE, FASTING 96 MG/DL (60-100); POTASSIUM SERUM 4.4 MMOL/L (3.5-5.1); SODIUM LEVEL 131 MMOL/L (136-145); TOTAL PROTEIN 5.5 G/DL (5.7-8.2)
[2022-02-18] MEDS ORDERED: LIDOCAINE 1% MDV 20ML VIAL As Ordered ONE (12:07)
[2022-02-18 14:00] VITALS: BP 107/67
[2022-02-18] MEDS: cefTRIAXone SOD 2 GM in D5W MINI-BAG PLUS 50 ML IV SCH (14:07)
[2022-02-18] MEDS ORDERED: SENN-52 PO (14:53)
[2022-02-18] MEDS ORDERED: RISATAB3 PO (14:53)
[2022-02-18] MEDS ORDERED: SUCR1TA PO (14:53)
[2022-02-18] MEDS ORDERED: CEFTINJ2 IV (14:53)
[2022-02-18] MEDS ORDERED: ENOXAPARIN 40MG/0.4ML SYRINGE (J1650 PER 10MG) SC SCH (21:00)
[2022-02-18] MEDS: SIMVASTATIN 40 MG TAB PO SCH (21:20)
[2022-02-18 21:22] VITALS: BP 109/67
[2022-02-18] MEDS: LIDOCAINE 5% (LIDODERM) PATCH TD SCH (21:22)
[2022-02-18] MEDS: PROPRANOLOL 10 MG TAB PO SCH (21:22)
[2022-02-18 22:00] VITALS: BP 109/67
[2022-02-19 05:40] VITALS: BP 109/68
[2022-02-19] MEDS ORDERED: SODIUM CHLORIDE 0.9% INJ 10 ML SYR IV PRN (05:40)
[2022-02-19] MEDS ORDERED: SODIUM CHLORIDE 0.9% INJ 10 ML SYR IV SCH (06:00)
[2022-02-19 06:25] LABS: HEMATOCRIT 38.7 % (42.0-52.0); HEMOGLOBIN 12.9 g/dl (13.5-17.5); MEAN CORPUSCULAR HEMOGLOBIN 32.2 pg (27.0-33.0); MEAN CORPUSCULAR HGB CONC 33.3 g/dl (32.0-36.5); MEAN CORPUSCULAR VOLUME 96.5 fl (80.0-96.0); PLATELET COUNT, AUTOMATED 337 10^3/uL (150-450); RED BLOOD COUNT 4.01 10^6/uL (4.30-6.10); WHITE BLOOD COUNT 13.5 10^3/uL (4.0-10.0)
[2022-02-19 06:56] VITALS: BP 109/68
[2022-02-19] MEDS: MORPHINE 4 MG/ML 1ML VIAL IV PRN ×2 (06:56→10:23)
[2022-02-19 07:00] LABS: ALBUMIN 1.6 G/DL (3.2-5.2); ALKALINE PHOSPHATASE 223 U/L (46-116); ALT/SGPT 16 U/L (7.0-40); AST/SGOT 51 U/L (<34); BILIRUBIN,TOTAL 5.4 MG/DL (0.3-1.2); BLOOD UREA NITROGEN 6 MG/DL (9-23); CALCIUM LEVEL 7.9 MG/DL (8.5-10.1); CARBON DIOXIDE LEVEL 26 MMOL/L (20-31); CHLORIDE LEVEL 100 MMOL/L (98-107); CREATININE FOR GFR 0.53 MG/DL (0.70-1.30); GLOMERULAR FILTRATION RATE > 60.0 (>60); GLUCOSE, FASTING 86 MG/DL (60-100); POTASSIUM SERUM 4.3 MMOL/L (3.5-5.1); SODIUM LEVEL 133 MMOL/L (136-145); TOTAL PROTEIN 5.8 G/DL (5.7-8.2)
[2022-02-19] MEDS: INSULIN LISPRO (NovoLOG) PER UNIT SC SCH ×2 (07:30→12:00)
[2022-02-19] MEDS: LACTOBACILLUS ACIDOPHILUS CAP (BACID) PO SCH ×2 (09:16→12:01)
[2022-02-19] MEDS: SUCRALFATE 1 GM TAB PO SCH (09:16)
[2022-02-19] MEDS: FOLIC ACID 1MG TAB PO SCH (09:17)
[2022-02-19] MEDS: THIAMINE 100 MG TAB PO SCH (09:17)
[2022-02-19] MEDS: OMEPRAZOLE 20MG CAP PO SCH (09:17)
[2022-02-19] MEDS: ANALGESIC BALM CRM 3OZ TOP SCH ×2 (09:18→12:01)
[2022-02-19] MEDS: cefTRIAXone SOD 2 GM in D5W MINI-BAG PLUS 50 ML IV SCH (12:01)
== END 2022-02-19 14:29 | disposition home or self-care (01) | DRG 720 ==
LOC: M ED 11:09 → EDBD 11:09 → M ED INP 02-12 00:40 → ENRESERV 02-12 15:08 → M MSPAV 02-12 15:54
PROVIDERS: ADMIT General Practice; ATTEND Internal Medicine
PROC: 02HV33Z Insertion of Infusion Device into Superior Vena Cava, Percutaneous Approach (ICD-10-PCS; 2022-02-18)
PROC: 0S9B3ZZ Drainage of Left Hip Joint, Percutaneous Approach (ICD-10-PCS; principal; 2022-02-18 11:00)
DX: A40.9 Streptococcal sepsis, unspecified (principal); E87.20 Acidosis, unspecified; K76.6 Portal hypertension; E87.1 Hypo-osmolality and hyponatremia; M00.9 Pyogenic arthritis, unspecified; K70.30 Alcoholic cirrhosis of liver without ascites; E66.01 Morbid (severe) obesity due to excess calories; K70.10 Alcoholic hepatitis without ascites; K76.0 Fatty (change of) liver, not elsewhere classified; E11.9 Type 2 diabetes mellitus without complications; E78.5 Hyperlipidemia, unspecified; F10.20 Alcohol dependence, uncomplicated; K21.9 Gastro-esophageal reflux disease without esophagitis; K57.90 Diverticulosis of intestine, part unspecified, without perforation or abscess without bleeding; K80.20 Calculus of gallbladder without cholecystitis without obstruction; M16.0 Bilateral primary osteoarthritis of hip; M17.12 Unilateral primary osteoarthritis, left knee; N39.0 Urinary tract infection, site not specified; K64.8 Other hemorrhoids; K64.4 Residual hemorrhoidal skin tags; Z79.899 Other long term (current) drug therapy

== ENCOUNTER 2022-02-25 10:59 | Inpatient (IN) | payer BC ==
[~2022-02-25] VITALS: Ht 177.8 cm; Wt 94.3 kg
[~2022-02-25 10:59] MED LIST changes: +AZITHROMYCIN 250MG TABLET PO SCH; +CEFTINJ2 IV; +DULA3PEN SC; +INSU100I16 SC; +INSU100V13 SC; +RISATAB3 PO; +SENN-52 PO; +SIMV40TA20 PO; +SPIR50TA4 PO; +SUCR1TA PO
[2022-02-25] MEDS ORDERED: NS 1,000 ML IV ONE (11:40)
[2022-02-25 12:29] LABS: BASO # 0.1 10^3/uL (0.0-0.2); BASO % 0.6 % (0.0-1.0); EOS # 0.2 10^3/uL (0.0-0.5); EOS % 1.2 % (0.0-3.0); HEMATOCRIT 37.5 % (42.0-52.0); HEMOGLOBIN 12.8 g/dl (13.5-17.5); LYMPH # 1.9 10^3/uL (1.5-5.0); LYMPH % 11.2 % (24.0-44.0); MEAN CORPUSCULAR HEMOGLOBIN 32.1 pg (27.0-33.0); MEAN CORPUSCULAR HGB CONC 34.1 g/dl (32.0-36.5); MONO % 11.5 % (2.0-8.0); NEUTROPHILS # 12.6 10^3/uL (1.5-8.5); NEUTROPHILS % 74.6 % (36.0-66.0); PLATELET COUNT, AUTOMATED 295 10^3/uL (150-450); RED BLOOD COUNT 3.99 10^6/uL (4.30-6.10); WHITE BLOOD COUNT 16.9 10^3/uL (4.0-10.0)
[2022-02-25 12:42] LABS: INR 1.44; PROTHROMBIN TIME 17.8 SECONDS (12.5-14.5)
[2022-02-25 12:43] LABS: PARTIAL THROMBOPLASTIN TIME 40.5 SECONDS (24.8-34.2)
[2022-02-25 12:44] LABS: CK-MB VALUE MASS 1.1 NG/ML (<3.6); LIPASE 30 U/L (12-53)
[2022-02-25 12:46] LABS: BILIRUBIN,DIRECT 5.1 MG/DL (<0.4); CPK CREATINE PHOSPHOKINASE 175 U/L (46-171); MB/CK RELATIVE INDEX 0.62 (< OR =4)
[2022-02-25 12:52] LABS: RSV AMPLIFICATION NEGATIVE (NEGATIVE)
[2022-02-25 13:04] LABS: ALBUMIN 1.6 G/DL (3.2-5.2); ALKALINE PHOSPHATASE 191 U/L (46-116); ALT/SGPT 17 U/L (7.0-40); AST/SGOT 78 U/L (<34); BILIRUBIN,TOTAL 6.8 MG/DL (0.3-1.2); BLOOD UREA NITROGEN 6 MG/DL (9-23); CALCIUM LEVEL 8.6 MG/DL (8.5-10.1); CARBON DIOXIDE LEVEL 32 MMOL/L (20-31); CHLORIDE LEVEL 82 MMOL/L (98-107); CREATININE FOR GFR 0.47 MG/DL (0.70-1.30); GLOMERULAR FILTRATION RATE > 60.0 (>60); GLUCOSE, FASTING 108 MG/DL (60-100); POTASSIUM SERUM 2.7 MMOL/L (3.5-5.1); SODIUM LEVEL 126 MMOL/L (136-145); TOTAL PROTEIN 6.1 G/DL (5.7-8.2)
[2022-02-25 13:43] LABS: MAGNESIUM LEVEL 1.5 MG/DL (1.8-2.4)
[2022-02-25] MEDS ORDERED: MAG SULF 1GM/100ML (MAG RUN) 1 GM in IV 1 EA IV ONE (13:50)
[2022-02-25] MEDS ORDERED: KCL 10MEQ/100ML SWI (KRUN) 10 MEQ in IV 1 EA IV ONE (14:00)
[2022-02-25] MEDS ORDERED: OXYC-517 PO (14:42)
[2022-02-25] MEDS ORDERED: SUCR1TA PO (14:42)
[2022-02-25] MEDS ORDERED: BACI1CAP PO (14:42)
[2022-02-25] MEDS ORDERED: SENN-50 PO (14:42)
[2022-02-25] MEDS ORDERED: HOME MED LIST COMPLETE! XX SCH (14:45)
[2022-02-25] MEDS ORDERED: VANCOMYCIN HCL 1,000 MG, VIAL MATE ADAPTER 1 EACH in NS 250 ML IV SCH (15:15)
[2022-02-25] MEDS ORDERED: GLUCAGON INJ 1MG VIAL SC PRN (15:20)
[2022-02-25] MEDS ORDERED: GLUCOSE 4GM CHEW TABLET PO PRN (15:20)
[2022-02-25] MEDS ORDERED: DEXTROSE 50% 50ML SYRINGE IV PRN (15:20)
[2022-02-25] MEDS ORDERED: ISOVUE-370 76% 100ML VIAL As Ordered ONE (15:26)
[2022-02-25] MEDS ORDERED: POTASSIUM CHLORIDE 10MEQ SR TABLET PO ONE (15:45)
[2022-02-25] MEDS ORDERED: MAG SULF 1GM/100ML (MAG RUN) 1 GM in IV 1 EA IV SCH ×2 (16:00→17:00)
[2022-02-25] MEDS ORDERED: NS 1,000 ML IV SCH (16:00)
[2022-02-25] MEDS: PIPERACILLIN/TAZOBACTAM SOD 3.375 GM in D5W MINI-BAG PLUS 50 ML IV SCH ×2 (16:48→22:29)
[2022-02-25 17:07] VITALS: BP 108/68
[2022-02-25 17:27] LABS: BLOOD UREA NITROGEN 6 MG/DL (9-23); CALCIUM LEVEL 8.2 MG/DL (8.5-10.1); CARBON DIOXIDE LEVEL 35 MMOL/L (20-31); CHLORIDE LEVEL 83 MMOL/L (98-107); CREATININE FOR GFR 0.51 MG/DL (0.70-1.30); GLOMERULAR FILTRATION RATE > 60.0 (>60); GLUCOSE, FASTING 98 MG/DL (60-100); SODIUM LEVEL 124 MMOL/L (136-145)
[2022-02-25] MEDS: INSULIN LISPRO (NovoLOG) PER UNIT SC SCH ×2 (17:30→21:00)
[2022-02-25] MEDS: MAG SULF 1GM/100ML (MAG RUN) 1 GM in IV 1 EA IV SCH ×2 (17:58→19:01)
[2022-02-25] MEDS: SUCRALFATE 1 GM TAB PO SCH (17:58)
[2022-02-25] MEDS ORDERED: VANCOMYCIN HCL 1,000 MG, VIAL MATE ADAPTER 1 EACH in NS 250 ML IV ONE ×2 (18:00→19:00)
[2022-02-25] MEDS: AZITHROMYCIN 250MG TABLET PO SCH (18:43)
[2022-02-25 20:00] VITALS: BP 134/65
[2022-02-25] MEDS: KCL 10MEQ/100ML SWI (KRUN) 10 MEQ in IV 1 EA IV SCH ×2 (20:05→21:47)
[2022-02-25] MEDS: SIMVASTATIN 40 MG TAB PO SCH (21:47)
[2022-02-25] MEDS: LACTULOSE 20GM/30ML SYRUP UDC PO SCH (21:47)
[2022-02-25] MEDS: PROPRANOLOL 10 MG TAB PO SCH (22:28)
[2022-02-26] VITALS (7 sets, daily range): BP systolic 98–126; BP diastolic 58–91
[2022-02-26] MEDS ORDERED: VANCOMYCIN HCL 750 MG, VIAL MATE ADAPTER 1 EACH in D5W 250 ML IV SCH ×2 (01:00→02:00)
[2022-02-26 02:26] LABS: BLOOD UREA NITROGEN < 5 MG/DL (9-23); CALCIUM LEVEL 8.3 MG/DL (8.5-10.1); CARBON DIOXIDE LEVEL 30 MMOL/L (20-31); CHLORIDE LEVEL 83 MMOL/L (98-107); CREATININE FOR GFR 0.48 MG/DL (0.70-1.30); GLOMERULAR FILTRATION RATE > 60.0 (>60); GLUCOSE, FASTING 163 MG/DL (60-100); POTASSIUM SERUM 3.4 MMOL/L (3.5-5.1); SODIUM LEVEL 123 MMOL/L (136-145)
[2022-02-26] MEDS ORDERED: POTASSIUM CHLORIDE 10MEQ SR TABLET PO ONE (03:30)
[2022-02-26] MEDS: PIPERACILLIN/TAZOBACTAM SOD 3.375 GM in D5W MINI-BAG PLUS 50 ML IV SCH ×4 (04:39→22:22)
[2022-02-26 05:53] LABS: HEMATOCRIT 35.5 % (42.0-52.0); HEMOGLOBIN 12.1 g/dl (13.5-17.5); MEAN CORPUSCULAR HEMOGLOBIN 31.8 pg (27.0-33.0); MEAN CORPUSCULAR HGB CONC 34.1 g/dl (32.0-36.5); MEAN CORPUSCULAR VOLUME 93.4 fl (80.0-96.0); PLATELET COUNT, AUTOMATED 273 10^3/uL (150-450); WHITE BLOOD COUNT 15.3 10^3/uL (4.0-10.0)
[2022-02-26 06:24] LABS: ALBUMIN 1.5 G/DL (3.2-5.2); ALKALINE PHOSPHATASE 174 U/L (46-116); ALT/SGPT 17 U/L (7.0-40); AST/SGOT 84 U/L (<34); BILIRUBIN,TOTAL 6.6 MG/DL (0.3-1.2); BLOOD UREA NITROGEN < 5 MG/DL (9-23); CALCIUM LEVEL 7.8 MG/DL (8.5-10.1); CARBON DIOXIDE LEVEL 32 MMOL/L (20-31); CHLORIDE LEVEL 84 MMOL/L (98-107); CREATININE FOR GFR 0.47 MG/DL (0.70-1.30); GLOMERULAR FILTRATION RATE > 60.0 (>60); GLUCOSE, FASTING 160 MG/DL (60-100); MAGNESIUM LEVEL 1.8 MG/DL (1.8-2.4); POTASSIUM SERUM 3.3 MMOL/L (3.5-5.1); SODIUM LEVEL 122 MMOL/L (136-145)
[2022-02-26 07:50] LABS: PHOSPHORUS LEVEL 1.5 MG/DL (2.5-4.9)
[2022-02-26 08:01] LABS: OSMOLALITY SERUM 257 MOSM/KG (275-295)
[2022-02-26] MEDS: FOLIC ACID 1MG TAB PO SCH (08:50)
[2022-02-26] MEDS: AZITHROMYCIN 250MG TABLET PO SCH (08:50)
[2022-02-26] MEDS: SUCRALFATE 1 GM TAB PO SCH ×2 (08:50→18:00)
[2022-02-26] MEDS: THIAMINE 100 MG TAB PO SCH (08:50)
[2022-02-26] MEDS: ENOXAPARIN 40MG/0.4ML SYRINGE (J1650 PER 10MG) SC SCH (08:51)
[2022-02-26] MEDS: LACTULOSE 20GM/30ML SYRUP UDC PO SCH ×2 (08:51→20:55)
[2022-02-26] MEDS: INSULIN LISPRO (NovoLOG) PER UNIT SC SCH ×4 (08:56→20:54)
[2022-02-26] MEDS ORDERED: OMEPRAZOLE 20MG CAP PO SCH (09:00)
[2022-02-26] MEDS ORDERED: K-PHOS NEUTRAL 250MG TABLET (SOD.PHOSPHATE/POT.PHOSPHATE) PO SCH (09:00)
[2022-02-26] MEDS ORDERED: SODIUM PHOSPHATE INJ 20 MMOL in D5W 250 ML IV ONE (12:00)
[2022-02-26 12:45] LABS: SOURCE, BODY FLUID ALBUMIN ASCITES
[2022-02-26 12:46] LABS: SOURCE, BODY FLUID ASCITES
[2022-02-26 12:47] LABS: APPEARANCE, BODY FLUID CLEAR (CLEAR); ASCITES FL COLOR YELLOW (COLORLESS)
[2022-02-26 12:50] LABS: SOURCE, BODY FLUID GLUCOSE ASCITES
[2022-02-26 12:53] LABS: SOURCE, BODY FLUID TOT PROTEIN ASCITES; TOTAL PROTEIN, BODY FLUID < 2.0 G/DL (NOT ESTABLISHED)
[2022-02-26 16:20] LABS: ALBUMIN 1.6 G/DL (3.2-5.2); BLOOD UREA NITROGEN 6 MG/DL (9-23); CALCIUM LEVEL 8.2 MG/DL (8.5-10.1); CARBON DIOXIDE LEVEL 29 MMOL/L (20-31); CHLORIDE LEVEL 83 MMOL/L (98-107); CREATININE FOR GFR 0.57 MG/DL (0.70-1.30); GLOMERULAR FILTRATION RATE > 60.0 (>60); GLUCOSE, FASTING 112 MG/DL (60-100); PHOSPHORUS LEVEL 2.2 MG/DL (2.5-4.9); POTASSIUM SERUM 3.9 MMOL/L (3.5-5.1); SODIUM LEVEL 123 MMOL/L (136-145)
[2022-02-26] MEDS: ONDANSETRON 4MG 2ML VIAL IV PRN (16:44)
[2022-02-26] MEDS: PANTOPRAZOLE 40MG VIAL IV SCH (16:44)
[2022-02-26] MEDS ORDERED: TOLVAPTAN 7.5 MG HALF-TAB PO ONE (19:00)
[2022-02-26] MEDS: SIMVASTATIN 40 MG TAB PO SCH (20:53)
[2022-02-26] MEDS: PROPRANOLOL 10 MG TAB PO SCH (20:54)
[2022-02-27] VITALS (8 sets, daily range): BP systolic 83–100; BP diastolic 51–58
[2022-02-27 04:14] LABS: HEMATOCRIT 35.9 % (42.0-52.0); HEMOGLOBIN 12.4 g/dl (13.5-17.5); MEAN CORPUSCULAR HEMOGLOBIN 32.5 pg (27.0-33.0); MEAN CORPUSCULAR HGB CONC 34.5 g/dl (32.0-36.5); MEAN CORPUSCULAR VOLUME 94.2 fl (80.0-96.0); PLATELET COUNT, AUTOMATED 281 10^3/uL (150-450); RED BLOOD COUNT 3.81 10^6/uL (4.30-6.10); WHITE BLOOD COUNT 18.3 10^3/uL (4.0-10.0)
[2022-02-27 04:23] LABS: ERYTHROCYTE SEDIMENTATION RATE 102 mm/hr (0-15)
[2022-02-27 04:34] LABS: MAGNESIUM LEVEL 1.6 MG/DL (1.8-2.4)
[2022-02-27 04:37] LABS: ALBUMIN 1.4 G/DL (3.2-5.2); ALKALINE PHOSPHATASE 167 U/L (46-116); ALT/SGPT 21 U/L (7.0-40); AST/SGOT 97 U/L (<34); BILIRUBIN,TOTAL 6.6 MG/DL (0.3-1.2); BLOOD UREA NITROGEN 7 MG/DL (9-23); CARBON DIOXIDE LEVEL 32 MMOL/L (20-31); CHLORIDE LEVEL 83 MMOL/L (98-107); CREATININE FOR GFR 0.77 MG/DL (0.70-1.30); GLOMERULAR FILTRATION RATE > 60.0 (>60); GLUCOSE, FASTING 101 MG/DL (60-100); PHOSPHORUS LEVEL 2.8 MG/DL (2.5-4.9); POTASSIUM SERUM 3.2 MMOL/L (3.5-5.1); SODIUM LEVEL 124 MMOL/L (136-145); TOTAL PROTEIN 5.6 G/DL (5.7-8.2)
[2022-02-27] MEDS: PIPERACILLIN/TAZOBACTAM SOD 3.375 GM in D5W MINI-BAG PLUS 50 ML IV SCH ×4 (04:58→23:34)
[2022-02-27] MEDS ORDERED: POTASSIUM CHLORIDE 10MEQ SR TABLET PO ONE ×2 (05:00→12:00)
[2022-02-27] MEDS ORDERED: MAGNESIUM OXIDE 400MG TAB (MAG-OX) PO ONE (05:00)
[2022-02-27] MEDS: INSULIN LISPRO (NovoLOG) PER UNIT SC SCH ×4 (07:23→21:00)
[2022-02-27] MEDS: AZITHROMYCIN 250MG TABLET PO SCH (08:41)
[2022-02-27] MEDS: THIAMINE 100 MG TAB PO SCH (08:41)
[2022-02-27] MEDS: FOLIC ACID 1MG TAB PO SCH (08:41)
[2022-02-27] MEDS: SUCRALFATE 1 GM TAB PO SCH ×2 (08:41→18:34)
[2022-02-27] MEDS: PANTOPRAZOLE 40MG VIAL IV SCH (08:42)
[2022-02-27] MEDS: ENOXAPARIN 40MG/0.4ML SYRINGE (J1650 PER 10MG) SC SCH (08:42)
[2022-02-27] MEDS: LACTULOSE 20GM/30ML SYRUP UDC PO SCH ×3 (08:42→21:54)
[2022-02-27] MEDS: MAG SULF 1GM/100ML (MAG RUN) 1 GM in IV 1 EA IV SCH ×3 (08:42→10:00)
[2022-02-27] MEDS ORDERED: KCL 10MEQ/100ML SWI (KRUN) 10 MEQ in IV 1 EA IV SCH (09:00)
[2022-02-27] MEDS ORDERED: KCL 20MEQ IN 100ML SWI (KRUN) 20 MEQ in IV 1 EA IV ONE ×2 (09:00)
[2022-02-27] MEDS: MAGNESIUM OXIDE 400MG TAB (MAG-OX) PO SCH ×2 (11:05→21:56)
[2022-02-27] MEDS: MIDODRINE 5 MG TAB PO SCH ×2 (12:34→17:07)
[2022-02-27] MEDS ORDERED: TOLVAPTAN 15 MG TAB (SAMSCA) PO ONE (13:00)
[2022-02-27 18:47] LABS: BLOOD UREA NITROGEN 9 MG/DL (9-23); CALCIUM LEVEL 8.4 MG/DL (8.5-10.1); CARBON DIOXIDE LEVEL 29 MMOL/L (20-31); CHLORIDE LEVEL 82 MMOL/L (98-107); CREATININE FOR GFR 1.23 MG/DL (0.70-1.30); GLOMERULAR FILTRATION RATE > 60.0 (>60); GLUCOSE, FASTING 105 MG/DL (60-100); POTASSIUM SERUM 3.7 MMOL/L (3.5-5.1); SODIUM LEVEL 121 MMOL/L (136-145)
[2022-02-27] MEDS ORDERED: LIDOCAINE 5% (LIDODERM) PATCH TD PRN (20:45)
[2022-02-27] MEDS: PROPRANOLOL 10 MG TAB PO SCH (21:00)
[2022-02-27] MEDS: rifAXIMin 550 MG TAB (XIFAXAN) PO SCH (21:54)
[2022-02-27] MEDS: SIMVASTATIN 40 MG TAB PO SCH (21:56)
[2022-02-27] MEDS: OCTREOTIDE ACETATE 100MCG/ML VIAL **SC ADMINISTRATION ONLY SC SCH (21:57)
[2022-02-28] VITALS: BP 89/50
[2022-02-28 01:13] VITALS: BP 94/56
[2022-02-28 02:19] VITALS: BP 90/50
[2022-02-28 04:00] VITALS: BP 95/53
[2022-02-28] MEDS: OCTREOTIDE ACETATE 100MCG/ML VIAL **SC ADMINISTRATION ONLY SC SCH (04:18)
[2022-02-28] MEDS: PIPERACILLIN/TAZOBACTAM SOD 3.375 GM in D5W MINI-BAG PLUS 50 ML IV SCH ×2 (05:19→11:18)
[2022-02-28 05:46] LABS: HEMATOCRIT 34.8 % (42.0-52.0); MEAN CORPUSCULAR HEMOGLOBIN 32.2 pg (27.0-33.0); MEAN CORPUSCULAR HGB CONC 34.5 g/dl (32.0-36.5); MEAN CORPUSCULAR VOLUME 93.3 fl (80.0-96.0); PLATELET COUNT, AUTOMATED 268 10^3/uL (150-450); RED BLOOD COUNT 3.73 10^6/uL (4.30-6.10); WHITE BLOOD COUNT 19.4 10^3/uL (4.0-10.0)
[2022-02-28 05:50] LABS: MAGNESIUM LEVEL 2.3 MG/DL (1.8-2.4)
[2022-02-28 05:54] LABS: BILIRUBIN,TOTAL 8.1 MG/DL (0.3-1.2); CALCIUM LEVEL 8.3 MG/DL (8.5-10.1); CREATININE FOR GFR 1.87 MG/DL (0.70-1.30); GLOMERULAR FILTRATION RATE 41.1 (>60); POTASSIUM SERUM 3.9 MMOL/L (3.5-5.1); TOTAL PROTEIN 6.1 G/DL (5.7-8.2)
[2022-02-28 05:57] LABS: INR 1.54; PROTHROMBIN TIME 18.8 SECONDS (12.5-14.5)
[2022-02-28] MEDS: INSULIN LISPRO (NovoLOG) PER UNIT SC SCH (07:06)
[2022-02-28 08:00] VITALS: BP 112/52
[2022-02-28] MEDS: ENOXAPARIN 40MG/0.4ML SYRINGE (J1650 PER 10MG) SC SCH (08:48)
[2022-02-28] MEDS: SUCRALFATE 1 GM TAB PO SCH (08:48)
[2022-02-28] MEDS: PANTOPRAZOLE 40MG VIAL IV SCH (08:48)
[2022-02-28] MEDS: LACTULOSE 20GM/30ML SYRUP UDC PO SCH (08:48)
[2022-02-28] MEDS: FOLIC ACID 1MG TAB PO SCH (08:48)
[2022-02-28] MEDS: MIDODRINE 5 MG TAB PO SCH ×2 (08:48→11:43)
[2022-02-28] MEDS: rifAXIMin 550 MG TAB (XIFAXAN) PO SCH (08:48)
[2022-02-28] MEDS: THIAMINE 100 MG TAB PO SCH (08:48)
[2022-02-28] MEDS: ONDANSETRON 4MG 2ML VIAL IV PRN (09:02)
[2022-02-28 11:14] VITALS: BP 82/52
[2022-02-28] MEDS ORDERED: SCOPOLAMINE 1MG TRANSDERMAL PATCH TOP PRN (12:25)
[2022-02-28] MEDS ORDERED: ONDANSETRON 4MG 2ML VIAL IV PRN (12:25)
[2022-02-28] MEDS: MORPHINE 10MG/0.5ML ORAL CONCENTRATE SOLUTION U/D SL PRN ×2 (14:29→20:31)
[2022-02-28] MEDS: LORazepam 2 MG/ML VIAL IV PRN ×2 (14:38→22:31)
[2022-03-01] MEDS: MORPHINE 10MG/0.5ML ORAL CONCENTRATE SOLUTION U/D SL PRN ×3 (00:59→06:12)
[2022-03-01] MEDS: LORazepam 2 MG/ML VIAL IV PRN ×2 (02:16→05:31)
[2022-03-01] MEDS: MORPHINE 2 MG/ML 1ML VIAL IV PRN ×2 (13:02→16:17)
== END 2022-03-01 19:36 | disposition expired | DRG 52 ==
LOC: M ED 10:59 → EDBD 10:59 → M ED INP 15:07 → ENRESERV 15:20 → M PCU 17:07
PROVIDERS: ADMIT Internal Medicine; ATTEND Internal Medicine
PROC: 0W9G3ZZ Drainage of Peritoneal Cavity, Percutaneous Approach (ICD-10-PCS; 2022-02-26)
PROC: 30233J1 Transfusion of Nonautologous Serum Albumin into Peripheral Vein, Percutaneous Approach (ICD-10-PCS; principal; 2022-02-27)
DX: G93.41 Metabolic encephalopathy (principal); K76.7 Hepatorenal syndrome; J18.9 Pneumonia, unspecified organism; L89.312 Pressure ulcer of right buttock, stage 2; L89.322 Pressure ulcer of left buttock, stage 2; K76.6 Portal hypertension; I95.9 Hypotension, unspecified; R65.10 Systemic inflammatory response syndrome (SIRS) of non-infectious origin without acute organ dysfunction; E11.51 Type 2 diabetes mellitus with diabetic peripheral angiopathy without gangrene; E87.1 Hypo-osmolality and hyponatremia; L03.115 Cellulitis of right lower limb; E83.42 Hypomagnesemia; E83.39 Other disorders of phosphorus metabolism; K70.31 Alcoholic cirrhosis of liver with ascites; K76.82 Hepatic encephalopathy; K72.90 Hepatic failure, unspecified without coma; Z66 Do not resuscitate; M16.0 Bilateral primary osteoarthritis of hip; M54.50 Low back pain, unspecified; G89.29 Other chronic pain; M17.12 Unilateral primary osteoarthritis, left knee; K31.89 Other diseases of stomach and duodenum; K21.9 Gastro-esophageal reflux disease without esophagitis; K44.9 Diaphragmatic hernia without obstruction or gangrene; E78.5 Hyperlipidemia, unspecified; I73.9 Peripheral vascular disease, unspecified; F10.10 Alcohol abuse, uncomplicated; E87.6 Hypokalemia; Z20.822 Contact with and (suspected) exposure to COVID-19; Z79.4 Long term (current) use of insulin; Z79.899 Other long term (current) drug therapy; Z86.16 Personal history of COVID-19; R31.0 Gross hematuria